=== PATIENT | female | born 1955 | race Caucasian/White ===

== ENCOUNTER 2020-05-09 13:31 | Outpatient (REF) | payer OTHER, SELFPAY ==
--- NOTE | 2020-05-09 13:37 | MM_ITS ---
EXAMINATION: MM SCREENING DIGITAL BREAST TOMOSYNTHESIS, BILATERAL CLINICAL INFORMATION: Screening. Asymptomatic. The lifetime risk of breast cancer based on the Tyrer-Cuzick Model is 3.8%. COMPARISON: Mammography: February 16, 2019 and studies dating back to June 24, 2012 TECHNIQUE: Digital breast tomosynthesis is performed in both the craniocaudal and mediolateral oblique views along with computer-aided detection (CAD). Synthesized 2D images are generated from the tomosynthesis. FINDINGS: There are scattered areas of fibroglandular density (ACR BI-RADS breast composition Category b). There are no significant masses, abnormal calcifications, or other abnormalities. MM/MM tomosynthesis screening BI IMPRESSION: There are no significant changes from prior study. ASSESSMENT: BI-RADS 1: Negative RECOMMENDATION: Routine annual mammography screening. This patient's information was entered into a reminder system with a target due date for their next mammogram.
== END 2020-05-09 13:32 | disposition home or self-care (01) ==
LOC: HO.MAMMO 13:31
PROVIDERS: PCP Pediatrics; Visit Provider Pediatrics
DX: Z12.31 Encounter for screening mammogram for malignant neoplasm of breast (principal)
CPT/HCPCS: 77063; 77067

== ENCOUNTER → 2020-10-16 10:19 | Outpatient (BNVA) | payer OTHER, SELFPAY | PROVIDERS: PCP Pediatrics; Visit Provider Internal Medicine Gastroenterology | CPT/HCPCS: Q3014 ==

== ENCOUNTER 2020-10-31 09:24 | Outpatient (REF) | payer OTHER, SELFPAY ==
--- NOTE | ~2020-10-31 | US_ITS ---
EXAMINATION: US ABDOMEN COMPLETE CLINICAL INFORMATION: Ultrasound abdomen complete 09/15/2019. COMPARISON: Previous abdominal ultrasound September 2019 TECHNIQUE: Real-time imaging of the abdominal viscera. FINDINGS: PANCREAS: The pancreas is not well visualized ABDOMINAL AORTA: The proximal, mid, and distal segments are normal in caliber. INFERIOR VENA CAVA: Visualized portions are normal. LIVER: The liver is normal in size. The liver contour is normal. Echotexture is increased. No focal hepatic lesion. There is no intrahepatic biliary duct dilatation seen. GALLBLADDER: Normal. The gallbladder is physiologically distended without evidence of stones, sludge, polyps, wall thickening or pericholecystic fluid. COMMON BILE DUCT: Normal in caliber measuring 0.6 cm in diameter. RIGHT KIDNEY: There is a small 2 mm echogenic density with twinkle artifact in the upper pole suggestive of a stone. No hydronephrosis or focal parenchymal lesions. The kidney measures 11.8 cm in maximum dimension. LEFT KIDNEY: Normal. No hydronephrosis. No renal calculi or focal parenchymal lesions. The kidney measures 11.0 cm in maximum dimension. SPLEEN: Normal. The spleen measures 10.4 cm in maximum dimension. FREE FLUID: None. US/US abdomen complete IMPRESSION: Echogenic liver probably representing fatty infiltration. Normal-appearing gallbladder. The pancreas is not well visualized. Small right upper pole renal stone.
== END 2020-10-31 09:25 | disposition home or self-care (01) ==
LOC: HO.US 09:24
PROVIDERS: Visit Provider Internal Medicine Gastroenterology
DX: R10.13 Epigastric pain (principal)
CPT/HCPCS: 76700

== ENCOUNTER 2020-12-06 09:41 | Emergency (ER) | payer OTHER, SELFPAY ==
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
[2020-12-06 10:06] VITALS: BP 147/82; PULSE 94; RESP 16; TEMP 36.9; O2SAT 98
[2020-12-06 10:24] VITALS: BP 148/82; PULSE 91; RESP 20; TEMP 36.9; O2SAT 97; BMI 33.2
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
== END 2020-12-06 11:48 | disposition home or self-care (01) ==
PROVIDERS: Emergency Provider Emergency Medicine; PCP Pediatrics
DX: S20.02XA Contusion of left breast, initial encounter (principal); S20.212A Contusion of left front wall of thorax, initial encounter; S29.011A Strain of muscle and tendon of front wall of thorax, initial encounter; V43.62XA Car passenger injured in collision with other type car in traffic accident, initial encounter; Y93.89 Activity, other specified; Y92.411 Interstate highway as the place of occurrence of the external cause; Y99.8 Other external cause status
CPT/HCPCS: 71101; 99283

== ENCOUNTER → 2021-01-28 12:41 | Outpatient (BNVA) | payer OTHER, SELFPAY | PROVIDERS: PCP Pediatrics; Visit Provider Internal Medicine Gastroenterology | DX: Z13.89 Encounter for screening for other disorder (principal) | CPT/HCPCS: Q3014 ==

== ENCOUNTER 2021-04-23 08:57 | Outpatient (REF) | payer OTHER, SELFPAY ==
[2021-04-23 09:10] LABS: MANUAL DIFF FLAG NO
[2021-04-23 09:40] LABS: Basophils Absolute Auto 0.1 X10*3/uL (0.0-0.2); Basophils Percent Auto 0.8 % (0-2); Eosinophils Absolute Auto 0.3 X10*3/uL (0.0-0.4); Eosinophils Percent Auto 4.8 % (0-4); Hematocrit 45.1 % (37-47); Hemoglobin 14.5 g/dl (12.0-16.0); Imm Gran Abs Auto 0.01 X10*3/uL (0.00-0.03); Imm Gran Pct Auto 0.2 % (0.0-0.4); Lymphocytes Absolute Auto 2.8 X10*3/uL (1.2-4.9); Lymphocytes Percent Auto 47.3 % (20-40); Mean Corpuscular HGB Conc 32.2 g/dl (31.0-35.0); Mean Corpuscular Volume 90.2 fL (80-98); Mean Platelet Volume 9.9 fL (9.4-12.3); Monocytes Absolute Auto 0.5 X10*3/uL (0.1-1.2); Monocytes Percent Auto 8.2 % (2-11); Neutrophils Absolute Auto 2.3 X10*3/uL (2.0-8.3); Neutrophils Percent Auto 38.7 % (45-73); Platelet Count 238 X10*3/uL (160-400); Red Cell Distribution Width 13.5 % (11.0-16.0)
[2021-04-23 09:54] LABS: Estimated Average Glucose 114 mg/dL; Hemoglobin A1c % 5.6 %
[2021-04-23 10:16] LABS: Anion Gap 14 (12-20); Blood Urea Nitrogen 11 mg/dL (9-16); Calcium 9.9 mg/dL (8.4-10.2); Carbon Dioxide 29 mmol/L (22-29); Chloride 105 mmol/L (96-108); Cholesterol 211 mg/dL; Estimated Glomerular Filt Rate > 60; Glucose Random 109 mg/dL (60-115); HDL Cholesterol 39 mg/dL; LDL Cholesterol Calculated 142 mg/dl; Potassium 4.9 mmol/L (3.3-5.1); Sodium 143 mmol/L (135-145); Triglycerides 153 mg/dL
[2021-04-23 10:21] LABS: TSH reflex Free T4 1.93 uIU/mL (0.32-4.0); Vitamin D 25-OH Total 25.6 ng/mL (>30)
[2021-04-23 10:30] LABS: Appearance Urine HAZY; Color Urine STRAW; Glucose Urine UA NEG (NEG); Leukocyte Esterase Urine NEG (NEG); Nitrite Urine NEG (NEG); Specific Gravity - Urine 1.025 (1.005-1.025); Urine Blood NEG (NEG); Urine Ketones NEG (NEG); Urine Protein NEG (NEG-TRACE)
[2021-04-23 11:05] LABS: Creatinine Urine 95.96 mg/dL
== END 2021-04-23 08:58 | disposition home or self-care (01) ==
LOC: HO.LAB 08:57
PROVIDERS: PCP Pediatrics; Visit Provider Pediatrics
DX: E78.00 Pure hypercholesterolemia, unspecified (principal); I10 Essential (primary) hypertension
CPT/HCPCS: 36415; 80048; 80061; 81003; 82043; 82306; 82550; 83036; 84443; 85025

== ENCOUNTER 2021-05-24 08:43 | Outpatient (REF) | payer OTHER, SELFPAY ==
[2021-05-24 09:09] LABS: MANUAL DIFF FLAG NO
[2021-05-24 09:31] LABS: Basophils Absolute Auto 0.1 X10*3/uL (0.0-0.2); Basophils Percent Auto 0.9 % (0-2); Eosinophils Absolute Auto 0.2 X10*3/uL (0.0-0.4); Eosinophils Percent Auto 4.1 % (0-4); Hematocrit 42.8 % (37.0-47.0); Lymphocytes Absolute Auto 2.5 X10*3/uL (1.2-4.9); Lymphocytes Percent Auto 42.7 % (20-40); Mean Corpuscular HGB Conc 32.7 g/dl (31.0-35.0); Mean Corpuscular Hemoglobin 29.5 pg (27.0-33.0); Mean Corpuscular Volume 90.3 fL (80.0-98.0); Mean Platelet Volume 9.5 fL (9.4-12.3); Monocytes Absolute Auto 0.5 X10*3/uL (0.1-1.2); Monocytes Percent Auto 9.2 % (2-11); Neutrophils Absolute Auto 2.5 x10*3/uL (2.0-8.3); Neutrophils Percent Auto 43.1 % (45-73); Platelet Count 239 X10*3/uL (160-400); Red Blood Count 4.74 X10*6/uL (4.20-5.50); Red Cell Distribution Width 13.3 % (11.0-16.0); White Blood Count 5.9 X10*3/uL (4.8-10.8)
[2021-05-24 09:32] LABS: Appearance Urine CLEAR; Color Urine YELLOW; Glucose Urine UA NEG (NEG); Leukocyte Esterase Urine NEG (NEG); Nitrite Urine NEG (NEG); Urine Blood NEG (NEG); Urine Ketones NEG (NEG); Urine Protein NEG (NEG-TRACE)
[2021-05-24 10:02] LABS: Alanine Aminotransferase 20 U/L (0-31); Alkaline Phosphatase 82 U/L (39-117); Anion Gap 13 (12-20); Aspartate Amino Transferase 20 U/L (5-31); Bilirubin Total 0.3 mg/dL (0.0-1.0); Blood Urea Nitrogen 11 mg/dL (9-16); C Reactive Protein 1.66 mg/dL (< or = 0.50); Calcium 9.6 mg/dL (8.4-10.2); Carbon Dioxide 27 mmol/L (22-29); Chloride 107 mmol/L (96-108); Estimated Glomerular Filt Rate > 60; Glucose Random 97 mg/dL (60-115); Iron 68 mcg/dL (30-160); Percent Iron Saturation 20 % (15-50); Potassium 4.5 mmol/L (3.3-5.1); Sodium 142 mmol/L (135-145); Total Iron Binding Capacity 339 mcg/dL (228-428); Total Protein 7.5 g/dL (6.5-8.0); Unsaturated Iron Binding 271 ug/dL
[2021-05-24 10:18] LABS: Erythrocyte Sedimentation Rate 21 MM/HR (0-20)
[2021-05-24 10:24] LABS: Ferritin 45 ng/mL (10-250); TSH reflex Free T4 1.06 uIU/mL (0.32-4.0)
[2021-05-27 12:15] LABS: IgA 365 mg/dL (70-320); IgG 1477 mg/dL (600-1540); IgM 68 mg/dL (50-300)
[2021-05-28 00:11] LABS: Immunoglobulin G Subclass 1 789 mg/dL (382-929); Immunoglobulin G Subclass 2 452 mg/dL (241-700); Immunoglobulin G Subclass 3 132 mg/dL (22-178); Immunoglobulin G Subclass 4 20.8 mg/dL (4-86); Immunoglobulin G Total 1502 mg/dL (600-1540)
[2021-05-28 05:51] LABS: Zinc 76 mcg/dL (60-130)
[2021-05-28 22:26] LABS: Histamine Plasma <1.5 ng/mL (< OR = 1.8)
[2021-05-29 07:57] LABS: Transglutaminase Ab IgG <1.0 U/mL; Transglutaminase IgA <1.0 U/mL
== END 2021-05-24 08:44 | disposition home or self-care (01) ==
LOC: HO.LAB 08:43
PROVIDERS: PCP Pediatrics; Visit Provider Internal Medicine Gastroenterology
DX: R10.13 Epigastric pain (principal); R10.33 Periumbilical pain; G89.29 Other chronic pain; R30.0 Dysuria; K75.81 Nonalcoholic steatohepatitis (NASH)
CPT/HCPCS: 36415; 80053; 81003; 82550; 82728; 82784; 83088; 83516; 83520; 83540; 84443; 84630; 85025; 85652; 86140

== ENCOUNTER 2021-05-27 10:35 | Outpatient (REF) | payer OTHER, SELFPAY ==
[2021-05-31 21:31] LABS: Calprotectin, Fecal 5 mcg/g
[2021-06-03 21:51] LABS: Pancreatic Elastase-1 >500 mcg/g
== END 2021-05-27 10:36 | disposition home or self-care (01) ==
LOC: HO.LNP 10:35
PROVIDERS: Visit Provider Internal Medicine Gastroenterology
DX: R10.13 Epigastric pain (principal)
CPT/HCPCS: 82656; 83993

== ENCOUNTER 2021-06-01 10:56 | Emergency (ER) | payer OTHER, SELFPAY ==
[2021-06-01 10:58] VITALS: BP 170/102; PULSE 100; RESP 16; TEMP 36.7; O2SAT 98; BMI 33.2
--- NOTE | 2021-06-01 11:09 | ED.BACK ---
HPI - Back Pain/Injury General Chief Complaint: Back Pain/Injury Stated Complaint: low back pain Time Seen by Provider: 06/01/21 11:07 Source: patient Mode of arrival: ambulatory Limitations: no limitations History of Present Illness MD elicited complaint: back pain Pertinent past history: prior back pain Onset (ago): day(s) (2) Timing: constant Severity: moderate Similar Symptoms Previously: No Quality: sharp Location: right lower back and left lower back Radiation: none Exacerbating factors: movement Relieving factors: immobilization Associated symptoms: denies other symptoms Work related injury: No Related Data Home Medications Medication Instructions Recorded Confirmed alendronate 70 mg tablet 70 mg PO QWEEK 10/16/20 atorvastatin 40 mg tablet 40 mg PO BEDTIME 10/16/20 cholecalciferol (vitamin D3) 50 50 mcg PO Q12H 10/16/20 mcg (2,000 unit) capsule fluticasone propionate 50 1 spray INTRANASAL DAILY 10/16/20 mcg/actuation nasal spray,suspension hydrochlorothiazide 12.5 mg tablet 12.5 mg PO DAILY 10/16/20 lansoprazole 30 mg capsule,delayed 30 mg PO DAILY 10/16/20 release multivitamin 1 tab PO DAILY 10/16/20 Previous Rx's Medication Instructions Recorded cyclobenzaprine 10 mg tablet 10 mg PO Q8H #10 tab 12/06/20 lidocaine HCl 4 % topical cream 1 appl TOPICAL BID PRN #120 g 12/06/20 (Aspercreme (lidocaine HCl)) naproxen 500 mg tablet 500 mg PO BID PRN #10 tab 12/06/20 cyclobenzaprine 10 mg tablet 10 mg PO TID PRN #10 tab 06/01/21 ketorolac 10 mg tablet 10 mg PO QID 5 Days #20 tab 06/01/21 Allergies Allergy/AdvReac Type Severity Reaction Status Date / Time No Known Allergies Allergy Mild NONE Verified 01/28/21 12:42 Review of Systems Review of Systems: Constitutional : No Weight loss, No Fever, No Chills, No Night Sweats,No Fatigue, No Malaise ENT/Mouth : No Hearing loss, No Ear Pain, No Nasal Congestion, NoSinus Pain, No Hoarseness, No sore throat, No Rhinorrhea, NoSwallowing Difficulty Eyes: No Eye Pain, No Swelling, No Redness, No Foreign Body, NoDischarge, No Vision Changes Cardiovascular : No Chest Pain, No SOB, No Dyspnea on Exertion, NoOrthopnea, No Edema, No Palpitations Respiratory : No Cough, No Sputum, No Wheezing, No Smoke Exposure, No Dyspnea Gastrointestinal : No Nausea, No Vomiting, No Diarrhea, NoConstipation, No abdominal Pain, No Hematochezia, No Melena no bowel incontinence Genitourinary : no irregular bleeding, No Dysuria, No UrinaryFrequency, No Hematuria, No Urinary Incontinence, No Urgency, No FlankPain, No Urinary Flow Changes, No Hesitancy Musculoskeletal : back pain No joint pain, No Myalgias, No Joint Swelling Skin : No Skin Lesions, No rash Neuro : No Weakness, No Numbness, No Paresthesias, No Loss ofConsciousness, No Dizziness, No Headache Psych : mild anxiety, tremors in hands, , No Depression, No SI/HI/AH/VH, No Social Issues, Endocrine : No Polyuria, No Polydipsia, No Temperature Intolerance PMFSH Past Medical History Surgical History H/O colonoscopy History of esophagogastroduodenoscopy (EGD) History of surgery on arm Social History Social History Household Members: Spouse Alcohol intake: current Alcohol intake frequency: does not drink Advance Directives: No Advance Directives Information Provided: No Physical Exam Vital Signs: Vital Signs: Last Vital Signs Temp 98.0 F 06/01/21 10:58 Pulse 100 06/01/21 10:58 Resp 18 06/01/21 12:12 BP 170/102 H 06/01/21 10:58 Pulse Ox 98 06/01/21 10:58 Body Mass Index 33.2 Const: General: cooperative, no acute distress, well developed, alert and awake Nutritional Appearance: well nourished Orientation/consciousness: patient oriented x3 Limitations: no limitations Eyes: Conjunctivae: conjunctivae normal Pupils: Equal, round and reactive pupils present EOM: EOMs intact bilaterally Neck: Neck: Yes full ROM, Yes no lymphadenopathy and Yes supple Resp: Effort & Inspection: normal respiratory effort and able to speak in complete sentences Auscultation: clear to auscultation bilaterally, no crackles, no rales, no rhonchi and no wheezes Cardio: Rate: regular rate Rhythm: regular rhythm Heart sounds: S1 normal heart sound present and S2 normal heart sound present : General: Yes no CVA tenderness Back/Spine/Pelvis: Back: no CVA tenderness Cervical Spine: normal cervical lordosis, cervical ROM normal and No cervical spasm Thoracic/Lumbar Spine: straight leg raise negative bilaterally, thoraco-lumbar spasm on the right, No thoracic spinal tenderness and No lumbar spinal tenderness Pelvis: no pain with anterior-posterior compression Skin: General skin exam: no rashes or lesions noted Neuro: General: patient oriented x3, tone normal and moves all extremities Cranial nerves: Yes Equal, round and reactive pupils present Extrem: General: Yes normal to inspection and Yes full ROM Psych: Appearance: grossly normal Affect: normal affect Attitude: cooperative Thought process: Normal thought process present Course Course Course Narrative: 65-year-old female with right lower back muscle tenderness which got much better with ketorolac and Flexeril, patient sent home with the same, given return precautions. No red flag symptoms, no leg numbness, weakness, fevers, history of cancer, saddle paresthesias, incontinence of bowel or bladder, or history of IV drug use. Discharge Plan Discharge Clinical Impression: Strain of lumbar region Qualifiers: Encounter type: initial encounter Qualified Code(s): S39.012A - Strain of muscle, fascia and tendon of lower back, initial encounter Patient Disposition: Home, Self-Care Instructions: Acute Low Back Pain (ED) Additional Instructions: As we discussed, I do not think this is a kidney stone. I think this is a muscle spasm of your back. However, if you have severe worsening back pain, you must return to the emergency room. I also want you to return to the emergency room if you have weakness in your legs, if you are incontinent of bowel or bladder, if you have numbness or tingling in your groin, or for any other new or concerning symptoms. As we discussed, do not take any ibuprofen containing products when you are taking the ketorolac, and do not drive with the muscle relaxant call to cyclobenzaprine. [place] comentamos, no creo que se trate de un c?lculo renal. Creo que es un espasmo muscular de la espalda. Sin embargo, si tiene un dolor de espalda yaritza que empeora, debe regresar a la dennis de emergencias. Tambi?n quiero que regrese a la dennis de emergencias si tiene debilidad en las piernas, si tiene incontinencia intestinal o de vejiga, si tiene entumecimiento u hormigueo en la shabnam, o por cualquier otro s?ntoma nuevo o preocupante. [place] ya comentamos, no tome jamie?n producto que contenga ibuprofeno cuando est? tomando ketorolaco y no conduzca con el llamado relajante muscular a la ciclobenzaprina. Prescriptions: New ketorolac 10 mg tablet 10 mg PO QID 5 Days Qty: 20 RF: 0 cyclobenzaprine 10 mg tablet 10 mg PO TID PRN (Reason: muscle spasm) Qty: 10 RF: 0 No Action cyclobenzaprine 10 mg tablet 10 mg PO Q8H Qty: 10 RF: 0 naproxen 500 mg tablet 500 mg PO BID PRN (Reason: pain) Qty: 10 RF: 0 lidocaine HCl [Aspercreme (lidocaine HCl)] 4 % cream 1 appl topical BID PRN (Reason: pain) Qty: 120 RF: 0 lansoprazole 30 mg capsule,delayed release(DR/EC) 30 mg PO DAILY RF: 0 fluticasone propionate 50 mcg/actuation spray,suspension 1 spray intranasal DAILY RF: 0 multivitamin Tablet 1 tab PO DAILY RF: 0 alendronate 70 mg tablet 70 mg PO QWEEK RF: 0 hydrochlorothiazide 12.5 mg tablet 12.5 mg PO DAILY RF: 0 atorvastatin 40 mg tablet 40 mg PO BEDTIME RF: 0 cholecalciferol (vitamin D3) 50 mcg (2,000 unit) capsule 50 mcg PO Q12H RF: 0 Discharge Date/Time: 06/01/21 12:26 Print Language: Tunisian
[2021-06-01] MEDS: Cyclobenzaprine HCl 10 MG TABLET PO (11:31)
[2021-06-01] MEDS: Ketorolac Tromethamine 15 MG/ML VIAL 30 MG IM (11:31)
[2021-06-01 12:12] VITALS: RESP 18
== END 2021-06-01 12:26 | disposition home or self-care (01) ==
PROVIDERS: Emergency Provider Emergency Medicine; PCP Pediatrics
DX: S39.012A Strain of muscle, fascia and tendon of lower back, initial encounter (principal); X58.XXXA Exposure to other specified factors, initial encounter; Y93.9 Activity, unspecified; Y92.9 Unspecified place or not applicable; Y99.9 Unspecified external cause status
CPT/HCPCS: 96372; 99283; 99284; J1885

== ENCOUNTER 2021-06-05 11:59 | Outpatient (REF) | payer OTHER, SELFPAY ==
--- NOTE | ~2021-06-05 | XR_ITS ---
EXAMINATION: XR LUMBOSACRAL SPINE CLINICAL INFORMATION: Low back pain COMPARISON: Lumbar spine x-rays 11/07/2014 TECHNIQUE: Three views of the lumbosacral spine. FINDINGS: Mild dextroscoliosis of the lumbar spine centered at L3. Alignment is otherwise within normal limits. Lumbar vertebral body heights are maintained. Disc space heights demonstrate mild narrowing diffusely. Small osteophytes are present at several levels. Similar sclerotic focus of the right sacrum, suspected bone island. XR/XR lumbar spine 2-3V IMPRESSION: Mild diffuse degenerative changes of the lumbar spine.
== END 2021-06-05 12:00 | disposition home or self-care (01) ==
LOC: HO.XRAY 11:59
PROVIDERS: Absent Provider Pediatrics; PCP Pediatrics; Visit Provider Family Medicine
DX: M54.50 Low back pain, unspecified (principal)
CPT/HCPCS: 72100

== ENCOUNTER 2021-06-11 12:40 | Outpatient (REF) | payer OTHER, SELFPAY ==
--- NOTE | ~2021-06-11 | MM_ITS ---
EXAMINATION: MM SCREENING DIGITAL BREAST TOMOSYNTHESIS, BILATERAL CLINICAL INFORMATION: Screening. Asymptomatic. The lifetime risk of breast cancer based on the Tyrer-Cuzick Model is 2.9%. COMPARISON: Mammography: May 09, 2020 and studies dating back to June 24, 2012 TECHNIQUE: Digital breast tomosynthesis is performed in both the craniocaudal and mediolateral oblique views along with computer-aided detection (CAD). Synthesized 2D images are generated from the tomosynthesis. FINDINGS: The breasts are almost entirely fatty (ACR BI-RADS breast composition Category a). There are no significant masses, abnormal calcifications, or other abnormalities. MM/MM tomosynthesis screening BI IMPRESSION: There are no significant changes from prior study. ASSESSMENT: BI-RADS 1: Negative RECOMMENDATION: Routine annual mammography screening. This patient's information was entered into a reminder system with a target due date for their next mammogram.
== END 2021-06-11 12:41 | disposition home or self-care (01) ==
LOC: HO.MAMMO 12:40
PROVIDERS: Visit Provider Pediatrics
DX: Z12.31 Encounter for screening mammogram for malignant neoplasm of breast (principal)
CPT/HCPCS: 77063; 77067

== ENCOUNTER 2021-07-02 10:52 | Outpatient (REF) | payer OTHER, SELFPAY ==
--- NOTE | ~2021-07-02 | FL_ITS ---
EXAMINATION: XR FLUOROSCOPY UPPER GI WITH AIR CLINICAL INFORMATION: Epigastric abdominal pain COMPARISON: December 22, 2014 and September 16, 2011 TECHNIQUE: Air-contrast upper GI examination FINDINGS: There is normal elevation of soft palate while saying candy. There is normal apposition of the vocal cords while saying E. Patient swallowed thin and thick barium and half-inch diameter barium tablet without difficulty. No nasopharyngeal reflux or tracheal aspiration. No cricopharyngeal hypertrophy or Zenker's diverticulum. There is esophageal hypomotility. No hiatal hernia identified. There is some mild gastroesophageal reflux within the distal third of the esophagus which clears slowly. No persistent strictures identified. There is some mild mucosal irregularity about the distal esophagus which may be related to esophagitis. The stomach demonstrates normal distensibility without abnormal mass or ulceration. There was no delay in gastric emptying. The duodenal bulb and sweep appeared unremarkable. FLUOROSCOPY TIME: 1.5 minutes DOSE AREA PRODUCT: 14.707 Gy-cm2 (aquino-centimeter squared) FL/FL upper GI w air IMPRESSION: Esophageal hypomotility with gastroesophageal reflux within the distal third of the esophagus identified. Mild mucosal irregularity of the distal esophagus which may be related to esophagitis.
== END 2021-07-02 10:53 | disposition home or self-care (01) ==
LOC: HO.XRAY 10:52
PROVIDERS: Visit Provider Internal Medicine Gastroenterology
DX: R10.13 Epigastric pain (principal)
CPT/HCPCS: 74246

== ENCOUNTER → 2021-10-14 14:55 | Outpatient (BNVA) | payer OTHER, SELFPAY | PROVIDERS: PCP Pediatrics; Visit Provider Nurse Practitioner Family | DX: M62.830 Muscle spasm of back (principal); M47.816 Spondylosis without myelopathy or radiculopathy, lumbar region; M53.3 Sacrococcygeal disorders, not elsewhere classified | CPT/HCPCS: 99202 ==

== ENCOUNTER 2021-12-23 15:49 | Outpatient (REF) | payer OTHER, SELFPAY ==
--- NOTE | ~2021-12-23 | XR_ITS ---
EXAMINATION: XR FOOT, LEFT CLINICAL INFORMATION: Right foot pain. COMPARISON: None TECHNIQUE: AP, lateral, and oblique views of the left foot. FINDINGS: The bones and soft tissues are normal. No fracture. Alignment is anatomic. Joint spaces are maintained. There is a very small plantar calcaneal spur. XR/XR foot LT min 3V IMPRESSION: Very small degenerative plantar calcaneal spur without other significant abnormality.
--- NOTE | ~2021-12-23 | XR_ITS ---
EXAMINATION: XR FOOT, RIGHT CLINICAL INFORMATION: Right foot pain. COMPARISON: None TECHNIQUE: AP, lateral, and oblique views of the right foot. FINDINGS: The bones and soft tissues are normal. No fracture. Alignment is anatomic. Joint spaces are maintained. Small retrocalcaneal spur. XR/XR foot RT min 3V IMPRESSION: Small retrocalcaneal spur without other significant abnormality.
== END 2021-12-23 15:50 | disposition home or self-care (01) ==
LOC: HO.XRAY 15:49
PROVIDERS: PCP Pediatrics; Visit Provider Nurse Practitioner Family
DX: M79.671 Pain in right foot (principal); M79.672 Pain in left foot; M47.816 Spondylosis without myelopathy or radiculopathy, lumbar region; M53.3 Sacrococcygeal disorders, not elsewhere classified; M62.830 Muscle spasm of back
CPT/HCPCS: 73630; 99212

== ENCOUNTER 2022-01-20 11:08 | Emergency (ER) | payer OTHER, SELFPAY ==
[2022-01-20 11:24] VITALS: BP 152/75; PULSE 70; RESP 18; TEMP 36.7; O2SAT 97; BMI 31.2
[2022-01-20 11:45] LABS: MANUAL DIFF FLAG NO
[2022-01-20 11:48] LABS: Basophils Percent Auto 0.8 % (0-2); Eosinophils Absolute Auto 0.2 X10*3/uL (0.0-0.4); Eosinophils Percent Auto 3.3 % (0-4); Hematocrit 41.8 % (37.0-47.0); Hemoglobin 13.7 g/dl (12.0-16.0); Imm Gran Abs Auto 0.01 X10*3/uL (0.00-0.03); Imm Gran Pct Auto 0.2 % (0.0-0.4); Lymphocytes Absolute Auto 2.3 X10*3/uL (1.2-4.9); Lymphocytes Percent Auto 45.5 % (20-40); Mean Corpuscular HGB Conc 32.8 g/dl (31.0-35.0); Mean Corpuscular Volume 88.4 fL (80.0-98.0); Mean Platelet Volume 9.5 fL (9.4-12.3); Monocytes Absolute Auto 0.5 X10*3/uL (0.1-1.2); Monocytes Percent Auto 8.8 % (2-11); Neutrophils Absolute Auto 2.1 x10*3/uL (2.0-8.3); Neutrophils Percent Auto 41.4 % (45-73); Platelet Count 216 X10*3/uL (160-400); Red Blood Count 4.73 X10*6/uL (4.20-5.50); Red Cell Distribution Width 13.6 % (11.0-16.0); White Blood Count 5.1 X10*3/uL (4.8-10.8)
[2022-01-20 12:07] LABS: COVID-19 Test Negative (Negative)
[2022-01-20 12:11] LABS: Alanine Aminotransferase 21 U/L (0-31); Albumin Level 4.1 g/dL (3.5-5.0); Alkaline Phosphatase 72 U/L (39-117); Anion Gap 7 (12-20); Aspartate Amino Transferase 20 U/L (5-31); Bilirubin Total 0.2 mg/dL (0.0-1.0); Blood Urea Nitrogen 16 mg/dL (9-16); Calcium 8.9 mg/dL (8.4-10.2); Carbon Dioxide 29 mmol/L (22-29); Chloride 109 mmol/L (96-108); Creatinine Clr Calc Pharmacy 66.5; Estimated Glomerular Filt Rate > 60; Glucose Random 95 mg/dL (60-115); Potassium 4.4 mmol/L (3.3-5.1); Sodium 141 mmol/L (135-145); Total Protein 7.2 g/dL (6.5-8.0)
[2022-01-20 19:35] VITALS: BP 165/66; PULSE 73; RESP 16; TEMP 37.1; O2SAT 98
--- NOTE | 2022-01-20 20:01 | ED.ABDPAIN ---
HPI - Abdominal Pain General Chief Complaint: Abdominal Pain Stated Complaint: L flank pain Time Seen by Provider: 01/20/22 20:01 Source: patient Mode of arrival: ambulatory History of Present Illness HPI narrative: 66-year-old female with no significant past medical history presenting to the ED complaining of acute on chronic left-sided low back pain radiating down left lower extremity x3 days. Also reports headache x today. Admits to history of migraines, this headache is similar however causing eye fatigue. Denies back injury/trauma, heavy lifting, numbness, tingling, weakness, abdominal pain, hematuria, dysuria, urinary incontinence/retention, nausea/vomiting. Admits to taking anti-inflammatories with relief. Denies taking any pain medication today MD elicited complaint: abdominal pain Onset (ago): day(s) Related Data Home Medications Medication Instructions Recorded Confirmed alendronate 70 mg tablet 70 mg PO QWEEK 10/16/20 10/14/21 atorvastatin 40 mg tablet 40 mg PO BEDTIME 10/16/20 10/14/21 cholecalciferol (vitamin D3) 50 50 mcg PO Q12H 10/16/20 10/14/21 mcg (2,000 unit) capsule fluticasone propionate 50 1 spray intranasal DAILY 10/16/20 10/14/21 mcg/actuation nasal spray,suspension hydrochlorothiazide 12.5 mg tablet 12.5 mg PO DAILY 10/16/20 lansoprazole 30 mg capsule,delayed 30 mg PO DAILY 10/16/20 10/14/21 release multivitamin 1 tab PO DAILY 10/16/20 10/14/21 Previous Rx's Medication Instructions Recorded naproxen 500 mg tablet 500 mg PO BID PRN pain #10 tabs 12/06/20 lidocaine HCl 4 % topical cream 1 appl topical BID PRN pain #120 10/14/21 (Aspercreme (lidocaine HCl)) grams diclofenac sodium 1 % topical gel 4 g topical QID pain #100 grams 12/23/21 (Arthritis Pain (diclofenac)) gabapentin 300 mg capsule 300 mg PO BID pain 30 days #60 caps 12/23/21 tizanidine 4 mg tablet 4 mg PO Q8H PRN muscle spasticity 12/23/21 30 days #90 tabs acetaminophen 500 mg tablet 500 mg PO Q6H PRN fever or pain 01/20/22 (Tylenol Extra Strength) #14 tabs cyclobenzaprine 5 mg tablet 5 mg PO Q8H PRN pain (scale score 01/20/22 7-10) 5 days #14 tabs lidocaine 5 % topical patch 1 patch topical DAILY PRN pain #30 01/20/22 (Lidoderm) ea naproxen 500 mg tablet 500 mg PO BID PRN pain 10 days #20 01/20/22 tabs Allergies Allergy/AdvReac Type Severity Reaction Status Date / Time No Known Allergies Allergy Mild NONE Verified 12/23/21 15:21 Review of Systems Review of Systems Constitutional: No Fever, No Chills, No Fatigue, No Malaise ENT/Mouth: No Ear Pain, No sore throat, No Rhinorrhea, No Swallowing Difficulty Eyes: No Eye Pain, No Swelling, No Redness, No Vision Changes Cardiovascular: No Chest Pain, No SOB, No Edema, No Palpitations Respiratory: No Cough, No Sputum, No Dyspnea Gastrointestinal: No Nausea, No Vomiting, No Diarrhea, No Constipation, No Abdominal pain Genitourinary: No Dysuria, No Urinary Frequency, No Hematuria, No Urinary Incontinence/retention, No Urgency, No Flank Pain, No Urinary Flow Changes Musculoskeletal: + joint pain, No Myalgias, No Joint Swelling Skin: No Skin Lesions, No rash Neuro: No Weakness, No Dizziness, + Headache Yes all other systems are reviewed and are negative Constitutional: Reports as per HPI Denies Abnormal speech present [facility] Past Medical History Attestation statement: The following information was validated with the patient. Surgical History H/O colonoscopy History of esophagogastroduodenoscopy (EGD) History of surgery on arm Social History Social History Household Members: Spouse Alcohol intake: current Alcohol intake frequency: does not drink Advance Directives: No Advance Directives Information Provided: No Physical Exam ED Vital Signs: Vital Signs - 24 hr 01/20/22 11:24 01/20/22 19:35 Temperature 98.0 F 98.7 F Pulse Rate 70 73 Respiratory Rate 18 16 Blood Pressure 152/75 H 165/66 H Pulse Oximetry 97 98 Oxygen Delivery Method Room Air Room Air BMI result Body Mass Index 31.2 Const General: cooperative, healthy appearing and no acute distress Orientation/consciousness: patient oriented x3 Limitations: no limitations HENMT Head: Yes normal to inspection and Yes atraumatic Ears: hearing grossly normal bilaterally General nose exam: Normal external nose present Face and sinus: Yes normal facial exam Eyes General: appearance normal, both eyes and all related structures Pupils: Equal, round and reactive pupils present EOM: EOMs intact bilaterally Neck Other: No midline cervical spinous tenderness Neck: Yes normal visual inspection and Yes no meningeal signs Resp Effort & Inspection: normal respiratory effort and no respiratory distress Cardio Rate: regular rate Heart sounds: S1 normal heart sound present and S2 normal heart sound present GI Inspection: Yes normal to inspection Palpation (GI): Soft to palpation, nontender, no guarding and not rigid General: Yes no CVA tenderness Back/Spine/Pelvis Other: No midline thoracic/lumbar spinous tenderness/step-off or deformity. + left-sided lower lumbar/buttock MSK tenderness Back: no CVA tenderness Skin Rashes: no rashes Wounds: no wounds Neuro Other: Strength intact throughout. No saddle anesthesia. Sensation intact to light touch. Neurovascular intact distally General: patient oriented x3, gait normal, tone normal, moves all extremities and no meningeal signs Cranial nerves: Yes CN's II-XII intact bilaterally, Yes Equal, round and reactive pupils present and Yes Bilaterally intact EOM present Cognition (Neuro): normal cognition Speech: No Abnormal speech present Gait exam (Neuro): Normal gait present Motor exam (neuro): 5/5 motor strength present throughout Extrem General: Yes normal to inspection Course Course Course Narrative: -labs unremarkable MDM - Abdominal Pain MDM Narrative Medical decision making narrative: 66-year-old female with no significant past medical history presenting to the ED complaining of acute on chronic left-sided low back pain radiating down left lower extremity x3 days. Also reports headache x today. On exam vital signs stable, NAD, nontoxic appearing, physical exam as above, no midline spinous tenderness through or red flag symptoms. No focal neuro deficits. Concern for MSK back pain/strain/muscle spasming vs sciatica. Low concern for pyelonephritis/renal stone Or intra-abdominal pathology Headache likely migraine, low suspicion for meningitis/encephalitis, CVT or SAH Plan: Labs ordered in triage. IM Toradol, PCP follow-up Medical Records Attestation: I reviewed the patient's medical records. Lab Data Attestation: I reviewed the patient's lab results. Result diagrams: 01/20/22 11:38 01/20/22 11:38 Labs: Lab Results 01/20/22 01/20/22 01/20/22 Range/Units 11:38 11:38 11:38 WBC 5.1 (4.8-10.8) X10*3/uL RBC 4.73 (4.20-5.50) X10*6/uL Hgb 13.7 (12.0-16.0) g/dl Hct 41.8 (37.0-47.0) % MCV 88.4 (80.0-98.0) fL MCH 29.0 (27.0-33.0) pg MCHC 32.8 (31.0-35.0) g/dl RDW 13.6 (11.0-16.0) % Plt Count 216 (160-400) X10*3/uL MPV 9.5 (9.4-12.3) fL Immature Gran % (Auto) 0.2 (0.0-0.4) % Neut % (Auto) 41.4 L (45-73) % Lymph % (Auto) 45.5 H (20-40) % Kendall % (Auto) 8.8 (2-11) % Eos % (Auto) 3.3 (0-4) % Baso % (Auto) 0.8 (0-2) % Lymph # (Auto) 2.3 (1.2-4.9) X10*3/uL Kendall # (Auto) 0.5 (0.1-1.2) X10*3/uL Eos # (Auto) 0.2 (0.0-0.4) X10*3/uL Baso # (Auto) 0.0 (0.0-0.2) X10*3/uL Abs Immat Gran (auto) 0.01 (0.00-0.03) X10*3/uL Absolute Neuts (auto) 2.1 (2.0-8.3) x10*3/uL Absolute Nucleated RBC 0.000 (0.0-0.012) X10*3/uL Nucleated RBC % (auto) 0.0 (0.0-0.2) /100WBC Sodium 141 (135-145) mmol/L Potassium 4.4 (3.3-5.1) mmol/L Chloride 109 H (96-108) mmol/L Carbon Dioxide 29 (22-29) mmol/L Anion Gap 7 L (12-20) BUN 16 (9-16) mg/dL Creatinine 0.74 (0.5-1.4) mg/dL Estim Creat Clear Calc 66.5 Estimated GFR > 60 Random Glucose 95 (60-115) mg/dL Calcium 8.9 D (8.4-10.2) mg/dL Total Bilirubin 0.2 (0.0-1.0) mg/dL AST 20 (5-31) U/L ALT 21 (0-31) U/L Alkaline Phosphatase 72 (39-117) U/L Total Protein 7.2 (6.5-8.0) g/dL Albumin 4.1 (3.5-5.0) g/dL COVID-19 (JOEY) Negative (Negative) COVID-19 Clin Com See Note Discharge Plan Discharge Clinical Impression: Low back pain, Headache Patient Disposition: Home, Self-Care Instructions: Acute Headache (ED), Back Pain (ED) Additional Instructions: Your pain is likely musculoskeletal Flexeril is a muscle relaxer, take at night as it makes you drowsy, do not drive, drink alcohol, or operate machinery while taking it Naproxen as an anti-inflammatory / pain medication, take with food Lidoderm patches are numbing patches, apply to painful area In addition take Tylenol at home If her headache persists or worsens, changes, becomes unbearable/constant or you have weakness return to the emergency department If symptoms persist or worsen, pain becomes unbearable, you developed urinary retention or incontinence, or weakness return to the ED Es probable que turner dolor sea musculoesquel?elisabet Flexeril es un relajante muscular, t?risa por la noche ya que te adormece, no conduzcas, bebas alcohol ni operes maquinaria mientras lo chirag. Naproxeno luther medicamento antiinflamatorio/analg?sico, t?knapp con alimentos Los parches de Lidoderm son parches anest?sicos, se aplican en el ?wang dolorida Adem?s reina Tylenol en casa Si turner dolor de nazario persiste o empeora, cambia, se vuelve insoportable/chelsi o tiene debilidad, regrese al departamento de emergencias Si los s?ntomas persisten o empeoran, el dolor se vuelve insoportable, desarroll? retenci?n urinaria o incontinencia, o debilidad, regrese al servicio de urgencias. Prescriptions: New acetaminophen [Tylenol Extra Strength] 500 mg tablet 500 mg PO Q6H PRN (Reason: fever or pain) Qty: 14 0RF lidocaine [Lidoderm] 5 % adhesive patch,medicated 1 patch topical DAILY MDD remove after 12 hours PRN (Reason: pain) Qty: 30 0RF Rx Instructions: leave on most painful area for up to 12 hrs naproxen 500 mg tablet 500 mg PO BID PRN (Reason: pain) 10 Days Qty: 20 0RF cyclobenzaprine 5 mg tablet 5 mg PO Q8H PRN (Reason: pain (scale score 7-10)) 5 Days Qty: 14 0RF No Action naproxen 500 mg tablet 500 mg PO BID PRN (Reason: pain) Qty: 10 0RF lansoprazole 30 mg capsule,delayed release(DR/EC) 30 mg PO DAILY fluticasone propionate 50 mcg/actuation spray,suspension 1 spray intranasal DAILY multivitamin Tablet 1 tab PO DAILY alendronate 70 mg tablet 70 mg PO QWEEK hydrochlorothiazide 12.5 mg tablet 12.5 mg PO DAILY atorvastatin 40 mg tablet 40 mg PO BEDTIME cholecalciferol (vitamin D3) 50 mcg (2,000 unit) capsule 50 mcg PO Q12H lidocaine HCl [Aspercreme (lidocaine HCl)] 4 % cream 1 appl topical BID PRN (Reason: pain) Qty: 120 0RF gabapentin 300 mg capsule 300 mg PO BID 30 Days Qty: 60 0RF diclofenac sodium [Arthritis Pain (diclofenac)] 1 % gel 4 g topical QID Qty: 100 0RF Rx Instructions: apply to single foot; for foot includes sole/toes/top of foot tizanidine 4 mg tablet 4 mg PO Q8H PRN (Reason: muscle spasticity) 30 Days Qty: 90 0RF Referrals: Carla Hart MD [Primary Care Provider] - 3 days Print Language: Hungarian
[2022-01-20] MEDS: Ketorolac Tromethamine 30 MG/ML VIAL IM (20:20)
== END 2022-01-20 20:27 | disposition home or self-care (01) ==
PROVIDERS: Emergency Provider Internal Medicine; PCP Pediatrics
DX: R10.32 Left lower quadrant pain (principal); M54.50 Low back pain, unspecified; R51.9 Headache, unspecified; Z20.822 Contact with and (suspected) exposure to COVID-19; Z79.899 Other long term (current) drug therapy
CPT/HCPCS: 80053; 85025; 87635; 96372; 99283; 99284; J1885

== ENCOUNTER → 2022-01-24 10:09 | Outpatient (BNVA) | payer OTHER, SELFPAY | PROVIDERS: PCP Pediatrics; Visit Provider Internal Medicine Gastroenterology | DX: K21.9 Gastro-esophageal reflux disease without esophagitis (principal); R10.13 Epigastric pain | CPT/HCPCS: 99212 ==

== ENCOUNTER → 2022-02-06 13:00 | Outpatient (BNVA) | payer OTHER, SELFPAY | PROVIDERS: PCP Pediatrics; Visit Provider Nurse Practitioner Family | DX: M53.3 Sacrococcygeal disorders, not elsewhere classified (principal); M47.816 Spondylosis without myelopathy or radiculopathy, lumbar region; M62.830 Muscle spasm of back; M54.16 Radiculopathy, lumbar region; M77.31 Calcaneal spur, right foot; M77.32 Calcaneal spur, left foot | CPT/HCPCS: 99212 ==

== ENCOUNTER 2022-06-04 08:15 | Day surgery (SDC) | payer OTHER, SELFPAY ==
[2022-05-27 09:56] VITALS: BMI 32.0
--- NOTE | 2022-06-03 10:23 | P.CONAN_ITS ---
Documented by User: Yulia Crouch NP 06/03/22 10:25 HPI - Anesthesia Eval Consult details Narrative: 66yo F for Colonoscopy PMFSH Active Problems Active Problems: All Active Problems (Updated 05/27/22 @ 09:56 by Suzanne Don, REMA) Epigastric abdominal pain (Acute) Lumbar spondylosis (Acute) Muscle spasm of back (Acute) Sacroiliac joint dysfunction (Acute) Bilateral foot pain (Acute) Lumbar radiculopathy (Acute) Calcaneal spur of both feet (Acute) Past Medical History Medical History Elevated cholesterol GERD (gastroesophageal reflux disease) History of COVID-19 Lumbar radiculopathy Lumbar spondylosis Sacroiliac joint dysfunction Surgical History Surgical History H/O colonoscopy History of esophagogastroduodenoscopy (EGD) History of surgery on arm Social History Social History Household Members: Spouse Alcohol intake: current Alcohol intake frequency: does not drink Patient Tobacco Use Status: Never used Tobacco Are you DNR?: No Advance Directives: No Advance Directives Information Provided: Yes Recently lost weight without trying: No Nutrition Risks: No Nutritional Risk Meds Allergies Allergy/AdvReac Type Severity Reaction Status Date / Time No Known Allergies Allergy Verified 05/27/22 09:55 Home Medications Medication Instructions Recorded Confirmed Last Taken Type alendronate 70 mg tablet 70 mg PO QWEEK 10/16/20 10/14/21 Unknown History atorvastatin 40 mg tablet 40 mg PO BEDTIME 10/16/20 10/14/21 Unknown History cholecalciferol (vitamin D3) 50 50 mcg PO Q12H 10/16/20 10/14/21 Unknown History mcg (2,000 unit) capsule fluticasone propionate 50 1 spray intranasal DAILY 10/16/20 10/14/21 Unknown History mcg/actuation nasal spray,suspension hydrochlorothiazide 12.5 mg tablet 12.5 mg PO DAILY 10/16/20 Unknown History multivitamin 1 tab PO DAILY 10/16/20 10/14/21 Unknown History Exam Exam Date and Time: June 03, 2022 1024 Height,Weight and Vital Signs: Height 5 ft Weight 74.389 kg Pertinent Lab Results Pertinent Lab Results: Laboratory Tests 01/20/22 01/20/22 11:38 11:38 WBC 5.1 Hgb 13.7 Hct 41.8 Plt Count 216 Sodium 141 Potassium 4.4 Chloride 109 H Carbon Dioxide 29 BUN 16 Creatinine 0.74 Assessment and Plan Assessment Anesthesia Assessment: Chart Reviewed Documented by User: Petra Millard MD 06/04/22 09:43 [facility] Past Medical History Medical History Elevated cholesterol GERD (gastroesophageal reflux disease) History of COVID-19 Lumbar radiculopathy Lumbar spondylosis Sacroiliac joint dysfunction Family History Family history of problems with anesthesia: No Surgical History Surgical History H/O colonoscopy History of esophagogastroduodenoscopy (EGD) History of surgery on arm History of Problems with Anesthesia: No Social History Social History Household Members: Spouse Alcohol intake: current Alcohol intake frequency: does not drink Patient Tobacco Use Status: Never used Tobacco Are you DNR?: No Advance Directives: No Advance Directives Information Provided: Yes Recently lost weight without trying: No Nutrition Risks: No Nutritional Risk Meds Allergies Allergy/AdvReac Type Severity Reaction Status Date / Time No Known Allergies Allergy Verified 05/27/22 09:55 Home Medications Medication Instructions Recorded Confirmed Last Taken Type alendronate 70 mg tablet 70 mg PO QWEEK 10/16/20 10/14/21 Unknown History atorvastatin 40 mg tablet 40 mg PO BEDTIME 10/16/20 10/14/21 Unknown History cholecalciferol (vitamin D3) 50 50 mcg PO Q12H 10/16/20 10/14/21 Unknown History mcg (2,000 unit) capsule fluticasone propionate 50 1 spray intranasal DAILY 10/16/20 10/14/21 Unknown History mcg/actuation nasal spray,suspension hydrochlorothiazide 12.5 mg tablet 12.5 mg PO DAILY 10/16/20 Unknown History multivitamin 1 tab PO DAILY 10/16/20 10/14/21 Unknown History Exam Height,Weight and Vital Signs: Height 5 ft Weight 74.389 kg Vital Signs Temp Pulse Resp BP Pulse Ox O2 Del Method 06/04/22 08:17 97.8 F 99 18 155/94 H 97 Room Air Airway Mallampati Class: II TM Dist: >3cm Neck ROM: Full Denture: Upper Partial: Lower Loose/Missing/Broken Teeth: No (No broken or loose teeth bottom) Heart: RRR Lungs: CTAB Assessment and Plan Assessment Anesthesia Assessment: Anesthesia Plan Discussed Final Anesthetic Review Family History of Problems with Anesthesia: No History of Problems with Anesthesia: No NPO: Yes ASA Class: II Final Preanesthetic Review: No Changes in Pt Med Stat, Meds/Allgs Chart Reviewed, Consent Obtained/Reviewed and Anes Risks/Benef Reviewed Patient Risk: Low Procedure Risk: Low Assessment/Block/Sedation in SS: Assess/Block/Sedation-SS Anesthetic Plan Anesthetic Plan: MAC: Disposition: Standard PACU
[2022-06-04 08:17] VITALS: BP 155/94; PULSE 99; RESP 18; TEMP 36.6; O2SAT 97
[2022-06-04] MEDS: Lactated Ringers 1,000 ML 100 ML IVCONT (08:38)
--- NOTE | 2022-06-04 09:06 | MHC.SHP ---
Pre-Procedural Eval Section A Date of Service: 06/04/22 Section B Chief Complaint: screening Relevant Family History (Specify if Yes): No Relevant Social History: None Present Medications: see Short Stay Collaborative assessment Medical History: Significant History (Elevated cholesterol GERD (gastroesophageal reflux disease) History of COVID-19 Lumbar radiculopathy Lumbar spondylosis Sacroiliac joint dysfunction) History of Previous Operations: Relevant previous surgery/procedure and date(s) (H/O colonoscopy History of esophagogastroduodenoscopy (EGD) History of surgery on arm) Allergies: Allergies Allergy/AdvReac Type Severity Reaction Status Date / Time No Known Allergies Allergy Verified 05/27/22 09:55 Review of Systems Sugical H&P ROS: Negative: Constitution, Cardiovascular, Respiratory, Neurological, Psychiatric, Hem-Onc, Allergic/Immunologic, Gastrointestinal, Genitourinary, Musculoskeletal, Integumentary, Endocrine and Eyes/Ears/Nose/Throat Exam Surgical H&P Exam: Normal: HEENT, Normal: Heart, Normal: Lungs, Normal: Extremities, Normal: Abdomen, Normal: Skin and Normal: Neurological Plan Diagnosis/Plan: Unchanged I have reviewed the history and physical and performed a pertinent physical examination on my patient. No changes have occurred unless specified.
--- NOTE | 2022-06-04 09:07 | W.PM.OPN ---
Operative Note Operative Note Date of Service: 06/04/22 Narrative: Operative Information Procedure Description: Colonoscopy Indication: screening Anesthesia: MAC COLONOSCOPY Instrument: Olympus variable stiffness pediatric scope 190L Colonoscopy Monitoring: Vital signs and clinical assessment, continuous EKG monitoring, Pulse oximetry, Carbon Dioxide monitoring and blood pressure monitoring were done throughout the procedure. Colon withdrawal time was 8 minutes. Procedure: The patient was placed in the left lateral decubitis position and pre-procedure medications were administered. After a digital rectal examination of the ano-rectum, the video colonoscope was inserted into the rectum and advanced through the colon to the cecum/TI. The colonoscope was slowly withdrawn in a retrograde panoramic fashion and the colon mucosa was carefully examined including a retroflexed view of the rectum. Findings and interventions are described below. Procedure Difficulty: easy Findings: Terminal Ileum-normal Cecum:normal Ascending Colon: 5-7 mm sessile polyp removed with cold forceps Transverse Colon -normal Descending Colon:normal Sigmoid Colon: mild diverticulosis Rectum: Retroflexion with small internal hemorrhoids, grade I Anorectum - normal Colon preparation: [employer] Bowel Preparation Scale Right colon; 2 Transverse colon: 2 Left colon; 2 (0 = Unprepared colon segment with mucosa not seen due to solid stool that cannot be cleared. 1 = Portion of mucosa of the colon segment seen, but other areas of the colon segment not well seen due to staining, residual stool and/or opaque liquid. 2 = Minor amount of residual staining, small fragments of stool and/or opaque liquid, but mucosa of colon segment seen well. 3 = Entire mucosa of colon segment seen well with no residual staining, small fragments of stool or opaque liquid) Impression and Post Procedure Diagnosis: polyp internal hemorrhoids diverticular disease Plan: High fiber diet leaflet Avoid straining at stool, epsom salts and sitz bath, anusol supps or cream Repeat Colonoscopy in 5 years if adenomatous polyp, 10 yrs if benign or earlier if clinically indicated Above findings were reviewed with the patient and relevant handouts were provided if indicated.
[2022-06-04 09:43] VITALS: BP 80/50; PULSE 80; RESP 14; TEMP 36.4; O2SAT 96
[2022-06-04 09:51] VITALS: BP 106/61; PULSE 97; RESP 14; O2SAT 98
[2022-06-04 09:58] VITALS: BP 119/82; PULSE 84; RESP 16; TEMP 36.3; O2SAT 99
== END 2022-06-04 11:38 | disposition home or self-care (01) ==
PROVIDERS: PCP Pediatrics; Visit Provider Internal Medicine Gastroenterology
PROC: 0DJD8ZZ Inspection of Lower Intestinal Tract, Via Natural or Artificial Opening Endoscopic (ICD-10-PCS; CPT 45378; principal; 2022-06-04 09:20)
DX: Z12.11 Encounter for screening for malignant neoplasm of colon (principal); K63.5 Polyp of colon; K57.30 Diverticulosis of large intestine without perforation or abscess without bleeding; K64.0 First degree hemorrhoids; K21.9 Gastro-esophageal reflux disease without esophagitis; E78.00 Pure hypercholesterolemia, unspecified; M54.16 Radiculopathy, lumbar region; M53.3 Sacrococcygeal disorders, not elsewhere classified; Z79.51 Long term (current) use of inhaled steroids; Z79.899 Other long term (current) drug therapy; Z86.16 Personal history of COVID-19
CPT/HCPCS: 45380; 88305

== ENCOUNTER 2022-08-07 10:18 | Outpatient (REF) | payer OTHER, SELFPAY ==
--- NOTE | ~2022-08-07 | MM_ITS ---
EXAMINATION: MM SCREENING DIGITAL BREAST TOMOSYNTHESIS, BILATERAL CLINICAL INFORMATION: Screening. Asymptomatic. The lifetime risk of breast cancer based on the Tyrer-Cuzick Model is 4%. COMPARISON: Mammography: June 11, 2021 and studies dating back to December 19, 2015 TECHNIQUE: Digital breast tomosynthesis is performed in both the craniocaudal and mediolateral oblique views along with computer-aided detection (CAD). Synthesized 2D images are generated from the tomosynthesis. FINDINGS: The breasts are almost entirely fatty (ACR BI-RADS breast composition Category a). There are no significant masses, abnormal calcifications, or other abnormalities. MM/MM tomosynthesis screening BI IMPRESSION: No significant changes from prior exam. ASSESSMENT: BI-RADS 1: Negative RECOMMENDATION: Routine annual mammography screening. This patient's information was entered into a reminder system with a target due date for their next mammogram.
== END 2022-08-07 10:19 | disposition home or self-care (01) ==
LOC: HO.MAMMO 10:18
PROVIDERS: Visit Provider Pediatrics
DX: Z12.31 Encounter for screening mammogram for malignant neoplasm of breast (principal)
CPT/HCPCS: 77063; 77067

== ENCOUNTER 2022-08-10 12:02 | Emergency (ER) | payer OTHER, SELFPAY ==
--- NOTE | ~2022-08-10 | XR_ITS ---
EXAMINATION: XR SHOULDER, LEFT CLINICAL INFORMATION: Left shoulder pain. COMPARISON: None TECHNIQUE: AP external rotation, Grashey, scapular Y, and axillary views of the left shoulder. FINDINGS: The bones and soft tissues are normal. No fracture. A femoral head bone anchor is noted in place without abnormality. Glenohumeral and acromioclavicular alignment is anatomic. No abnormal soft tissue calcifications. XR/XR shoulder LT min 2V IMPRESSION: 1. No acute left shoulder abnormality.
--- NOTE | 2022-08-10 12:25 | ECG_ITS ---
Test Reason : L SHOULDER PAIN Blood Pressure : / mmHG Vent. Rate : 077 BPM Atrial Rate : 077 BPM P-R Int : 130 ms QRS Dur : 088 ms QT Int : 384 ms P-R-T Axes : 069 032 038 degrees QTc Int : 434 ms Normal sinus rhythm Possible Left atrial enlargement Borderline ECG No previous ECGs available Referred By: Gabriella Baca Electronically Signed By:MERCEDEZ NEVILLE MD
--- NOTE | 2022-08-10 12:25 | ED.UPPEXIN ---
HPI - Extremity Injury (Upper) General Chief Complaint: Extremity Problem <NI Hudson Last Filed: 08/10/22 12:31> Stated Complaint: L shoulder pain <NI Hudson Last Filed: 08/10/22 12:31> Time Seen by Provider: 08/10/22 13:09 <NI Hudson Last Filed: 08/10/22 12:31> Source: patient <NI Lancaster Last Filed: 08/10/22 14:49> Mode of arrival: ambulatory <NI Lancaster Last Filed: 08/10/22 14:49> Limitations: no limitations <NI Lancaster Last Filed: 08/10/22 14:49> History of Present Illness HPI narrative: 67 yo female presenting to the ER for evaluation of non-traumatic left sided shoulder pain for the last 3 days. She reports waking up with the pain. She reports having surgery on both of her shoulders at [facility] in the past. She states the pain is in the back of her left shoulder, worse with ambulation. It radiates to the front and lateral portions of the shoulder with movement. She is able to abduct the arm completely but with discomfort. No chest pain or SOB. No numbness, weakness or tingling. No neck pain. She took a muscle relaxer with minimal relief. <NI Lancaster Last Filed: 08/10/22 14:49> MD complaint: injury to: left and shoulder <NI Lancaster Last Filed: 08/10/22 14:49> Onset (ago): day(s) (3) <NI Lancaster Last Filed: 08/10/22 14:49> Other injuries: none <NI Lancaster Last Filed: 08/10/22 14:49> Handedness: right <NI Lancaster Last Filed: 08/10/22 14:49> Place: home <NI Lancaster Last Filed: 08/10/22 14:49> Severity: moderate <NI Lancaster Last Filed: 08/10/22 14:49> Severity scale (1-10): 5 <NI Lancaster - Last Filed: 08/10/22 14:49> Relieving factors: immobilization <NI Lancaster - Last Filed: 08/10/22 14:49> Exacerbating factors: movement of extremity <NI Lancaster - Last Filed: 08/10/22 14:49> Associated symptoms: denies other symptoms <NI Lancaster - Last Filed: 08/10/22 14:49> Related Data Home Medications: Home Medications Medication Instructions Recorded Confirmed alendronate 70 mg tablet 70 mg PO QWEEK 10/16/20 10/14/21 atorvastatin 40 mg tablet 40 mg PO BEDTIME 10/16/20 10/14/21 cholecalciferol (vitamin D3) 50 50 mcg PO Q12H 10/16/20 10/14/21 mcg (2,000 unit) capsule fluticasone propionate 50 1 spray intranasal DAILY 10/16/20 10/14/21 mcg/actuation nasal spray,suspension hydrochlorothiazide 12.5 mg tablet 12.5 mg PO DAILY 10/16/20 multivitamin 1 tab PO DAILY 10/16/20 10/14/21 Previous Rx's Medication Instructions Recorded lidocaine HCl 4 % topical cream 1 appl topical BID PRN pain #120 10/14/21 (Aspercreme (lidocaine HCl)) grams diclofenac sodium 1 % topical gel 4 g topical QID pain #100 grams 12/23/21 (Arthritis Pain (diclofenac)) acetaminophen 500 mg tablet 500 mg PO Q6H PRN fever or pain 01/20/22 (Tylenol Extra Strength) #14 tabs lidocaine 5 % topical patch 1 patch topical DAILY PRN pain #30 01/20/22 (Lidoderm) ea dexlansoprazole 60 mg 60 mg PO DAILY #90 caps 01/24/22 capsule,biphase delayed release (Dexilant) cyclobenzaprine 5 mg tablet 5 mg PO Q8H PRN muscle spasm 30 02/06/22 days #30 tabs prednisone 20 mg tablet 40 mg PO DAILY pain 5 days #10 tabs 02/06/22 gabapentin 300 mg capsule 300 mg PO BID PRN for pain 30 days 02/24/22 #60 caps ketorolac 10 mg tablet 10 mg PO Q8H PRN pain #10 tabs 02/05/23 lidocaine 5 % topical patch 1 patch topical DAILY #15 ea 08/10/22 <NI Hudson - Last Filed: 08/10/22 12:31> Allergies/Adverse Reactions: Allergies Allergy/AdvReac Type Severity Reaction Status Date / Time No Known Allergies Allergy Verified 05/27/22 09:55 <NI Hudson - Last Filed: 08/10/22 12:31> Review of Systems Review of Systems: Yes all other systems are reviewed and are negative <NI Lancaster - Last Filed: 08/10/22 14:49> [facility] Past Medical History Medical History: Medical History Elevated cholesterol GERD (gastroesophageal reflux disease) History of COVID-19 Lumbar radiculopathy Lumbar spondylosis Sacroiliac joint dysfunction <NI Hudson - Last Filed: 08/10/22 12:31> Surgical History: Surgical History H/O colonoscopy History of esophagogastroduodenoscopy (EGD) History of surgery on arm <NI Hudson - Last Filed: 08/10/22 12:31> Social History Social History: Social History Household Members: Spouse Alcohol intake: current Alcohol intake frequency: does not drink Patient Tobacco Use Status: Never used Tobacco Advance Directives: No Advance Directives Information Provided: Yes <NI Hudson - Last Filed: 08/10/22 12:31> Physical Exam Vital Signs: Vital Signs: Last Vital Signs Temp 97.2 F 08/10/22 12:26 Pulse 76 08/10/22 12:26 Resp 16 08/10/22 12:26 BP 150/82 H 08/10/22 12:26 Pulse Ox 98 08/10/22 12:26 O2 Del Method 08/10/22 12:26 BMI result Body Mass Index 33.2 <NI Hudson - Last Filed: 08/10/22 12:31> Vital Signs: Last Vital Signs Temp 97.2 F 08/10/22 12:26 Pulse 76 08/10/22 12:26 Resp 16 08/10/22 12:26 BP 150/82 H 08/10/22 12:26 Pulse Ox 98 08/10/22 12:26 O2 Del Method 08/10/22 12:26 BMI result Body Mass Index 33.2 <NI Lancaster - Last Filed: 08/10/22 14:49> Appearance: Alert. Oriented X3. No acute distress. HEENT: normal inspection CVS: Normal heart rate and rhythm. Pulses normal. Respiratory: No respiratory distress. Skin: Skin warm and dry. Normal skin color. Normal skin turgor. No rashes. Extremities: normal inspection of the bilateral shoulders. left posterior shoulder with soft tissue tenderness, AC joint tenderness. no skin changes. no deformity. normal ROM with pain upon abduction at 180 degrees. +empty can test. 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 No motor deficit. No sensory deficit. <NI Lancaster - Last Filed: 08/10/22 14:49> Course Course Course Narrative: RME--67-year-old female past medical history of GERD, HLD, prior left shoulder surgery presenting to the ED complaining of left shoulder pain x3 days. Denies known injury, trauma, fall. Reports associated mild headache. Denies CP/SOB, numbness/tingling EKG, x-ray ordered in triage <NI Hudson - Last Filed: 08/10/22 12:31> Reevaluation(s) Reevaluation #1: XR normal. pain reproducible on exam. doubt cardiac etiology, most likely rotator cuff, msk pain. will start on nsaids and have her f/u with her orthopedic <NI Lancaster - Last Filed: 08/10/22 14:49> Medications Administered Discontinued Medications Generic Name Dose Route Start Last Admin Trade Name Freq PRN Reason Stop Dose Admin Ketorolac Tromethamine 30 mg 08/10/22 13:56 08/10/22 14:16 Ketorolac Tromethamine 30 Mg/Ml Vial IM 08/10/22 13:57 30 mg ONCE ONE Administration <NI Hudson - Last Filed: 08/10/22 12:31> Medications Administered Discontinued Medications Generic Name Dose Route Start Last Admin Trade Name Freq PRN Reason Stop Dose Admin Ketorolac Tromethamine 30 mg 08/10/22 13:56 08/10/22 14:16 Ketorolac Tromethamine 30 Mg/Ml Vial IM 08/10/22 13:57 30 mg ONCE ONE Administration <NI Lancaster Last Filed: 08/10/22 14:49> Medical Decision Making Differential Diagnosis Differential Diagnoses: The differential diagnosis associated with the presentation includes <NI Lancaster - Last Filed: 08/10/22 14:49> rotator cuff injury, tendonitis, shoulder strain vs sprain, ac joint separation, less likely cardiac etiology <NI Lancaster - Last Filed: 08/10/22 14:49> Independent Interpretation I performed an independent interpretation of an: Plain X-Ray <NI Lancaster Last Filed: 08/10/22 14:49> Interpretation: normal appearing left shoulder <NI Lancaster - Last Filed: 08/10/22 14:49> Radiology Impression Discussion of test interpretation with radiology: I have reviewed the radiologist's reading. <NI Lancaster Last Filed: 08/10/22 14:49> Radiologist Impression: XR/XR shoulder LT min 2V IMPRESSION: 1.? No acute left shoulder abnormality. <NI Lancaster Last Filed: 08/10/22 14:49> Prescription Management I considered prescription management with: Pain Medication <NI Lancaster - Last Filed: 08/10/22 14:49> NSAID <NI Lancaster Last Filed: 08/10/22 14:49> Critical Care Time Critical Care Time Critical Care Time: No <NI Lancaster Last Filed: 08/10/22 14:49> Discharge Plan Discharge Clinical Impression: Left shoulder pain <NI Hudson Last Filed: 08/10/22 12:31> Patient Disposition: Home, Self-Care <NI Hudson Last Filed: 08/10/22 12:31> Instructions: Shoulder Pain (ED) <NI Hudson Last Filed: 08/10/22 12:31> Additional Instructions: Your x-ray today was normal. Recommend taking the prescribed anti-inflammatory medication. Recommend following up with your orthopedic doctor for further evaluation of possible rotator cuff problem. If you develop new or worsening symptoms call 911 or come back to the ER for further evaluation. Tu radiograf?a de hoy fue normal. Recomendar marlen la medicaci?n antiinflamatoria prescrita. Recomiende hacer un seguimiento con turner m?dico ortop?dico para nikolas evaluaci?n adicional del posible problema del manguito rotador. Si desarrolla s?ntomas nuevos o que empeoran, llame al 911 o regrese a la dennis de emergencias para nikolas evaluaci?n adicional. <NI Hudson - Last Filed: 08/10/22 12:31> Prescriptions: New ketorolac 10 mg tablet 10 mg PO Q8H PRN (Reason: pain) Qty: 10 0RF lidocaine 5 % adhesive patch,medicated 1 patch topical DAILY Qty: 15 0RF Rx Instructions: leave on most painful area for up to 12 hrs No Action gabapentin 300 mg capsule 300 mg PO BID PRN (Reason: for pain) 30 Days Qty: 60 1RF acetaminophen [Tylenol Extra Strength] 500 mg tablet 500 mg PO Q6H PRN (Reason: fever or pain) Qty: 14 0RF lidocaine [Lidoderm] 5 % adhesive patch,medicated 1 patch topical DAILY MDD remove after 12 hours PRN (Reason: pain) Qty: 30 0RF Rx Instructions: leave on most painful area for up to 12 hrs fluticasone propionate 50 mcg/actuation spray,suspension 1 spray intranasal DAILY multivitamin Tablet 1 tab PO DAILY alendronate 70 mg tablet 70 mg PO QWEEK hydrochlorothiazide 12.5 mg tablet 12.5 mg PO DAILY atorvastatin 40 mg tablet 40 mg PO BEDTIME cholecalciferol (vitamin D3) 50 mcg (2,000 unit) capsule 50 mcg PO Q12H dexlansoprazole [Dexilant] 60 mg capsule,biphase delayed releas 60 mg PO DAILY Qty: 90 2RF prednisone 20 mg tablet 40 mg PO DAILY 5 Days Qty: 10 0RF cyclobenzaprine 5 mg tablet 5 mg PO Q8H PRN (Reason: muscle spasm) 30 Days Qty: 30 1RF lidocaine HCl [Aspercreme (lidocaine HCl)] 4 % cream 1 appl topical BID PRN (Reason: pain) Qty: 120 0RF diclofenac sodium [Arthritis Pain (diclofenac)] 1 % gel 4 g topical QID Qty: 100 0RF Rx Instructions: apply to single foot; for foot includes sole/toes/top of foot <NI Hudson - Last Filed: 08/10/22 12:31> Referrals: Carla Hart MD [Primary Care Provider] - (left shoulder pain) <NI Hudson - Last Filed: 08/10/22 12:31> Interventions: ED Discharge Assessment Last Done: 08/10/22 14:36 <NI Hudson - Last Filed: 08/10/22 12:31> Discharge Date/Time: 08/10/22 14:36 <NI Hudson - Last Filed: 08/10/22 12:31> Print Language: Romansh <NI Hudson - Last Filed: 08/10/22 12:31>
[2022-08-10 12:26] VITALS: BP 150/82; PULSE 76; RESP 16; TEMP 36.2; O2SAT 98; BMI 33.2
[2022-08-10] MEDS: Ketorolac Tromethamine 30 MG/ML VIAL IM (14:16)
== END 2022-08-10 14:36 | disposition home or self-care (01) ==
PROVIDERS: Emergency Provider Student in an Organized Health Care Education/Training Program; PCP Pediatrics
DX: M25.512 Pain in left shoulder (principal); R07.89 Other chest pain; M54.50 Low back pain, unspecified; Z79.899 Other long term (current) drug therapy
CPT/HCPCS: 73030; 93005; 96372; 99283; 99284; J1885

== ENCOUNTER → 2022-08-22 15:18 | Outpatient (BNVA) | payer OTHER, SELFPAY | PROVIDERS: PCP Pediatrics; Visit Provider Nurse Practitioner Family | DX: M47.816 Spondylosis without myelopathy or radiculopathy, lumbar region (principal); M25.512 Pain in left shoulder; M79.18 Myalgia, other site; R22.2 Localized swelling, mass and lump, trunk | CPT/HCPCS: 99212 ==

== ENCOUNTER → 2022-09-03 10:35 | Outpatient (BNVA) | payer OTHER, SELFPAY | PROVIDERS: PCP Pediatrics; Visit Provider Surgery | DX: R22.2 Localized swelling, mass and lump, trunk (principal) | CPT/HCPCS: 99202 ==

== ENCOUNTER → 2022-09-05 09:20 | Outpatient (BNVA) | payer OTHER, SELFPAY | PROVIDERS: PCP Pediatrics; Referring Provider Pediatrics; Visit Provider Internal Medicine Gastroenterology | DX: K21.9 Gastro-esophageal reflux disease without esophagitis (principal); R10.13 Epigastric pain | CPT/HCPCS: 99212 ==

== ENCOUNTER 2022-10-29 09:29 | Outpatient (REF) | payer OTHER, SELFPAY | END 2022-10-29 09:30 | disposition home or self-care (01) | LOC: HO.LNP 09:29 | PROVIDERS: PCP Pediatrics; Referring Provider Pediatrics; Visit Provider Surgery | DX: R22.2 Localized swelling, mass and lump, trunk (principal) | CPT/HCPCS: 11403; 88304; 99212 ==

== ENCOUNTER → 2022-11-10 12:11 | Outpatient (BNVA) | payer OTHER, SELFPAY | PROVIDERS: PCP Pediatrics; Visit Provider Surgery | DX: Z48.817 Encounter for surgical aftercare following surgery on the skin and subcutaneous tissue (principal) | CPT/HCPCS: 99211 ==

== ENCOUNTER 2022-12-25 12:32 | Outpatient (REF) | payer OTHER, SELFPAY ==
--- NOTE | ~2022-12-25 | MR_ITS ---
EXAMINATION: MRI SHOULDER WITHOUT CONTRAST, LEFT INDICATION: Left shoulder pain, decreased range of motion. COMPARISON: 08/10/2022 TECHNIQUE: Multiplanar MR imaging was obtained through the left shoulder without contrast on a 1.5 Yajaira magnet. FINDINGS: ROTATOR CUFF : Mild supraspinatus tendinosis is evident, characterized by tendon thickening and intermediate intrasubstance signal. No recurrent tears, status post repair. Soft tissue anchors are evident at the greater tuberosity anteriorly. There is mild subscapularis tendinosis. Infraspinatus and teres minor are normal. Grade 1 fatty replacement is evident at the myotendinous junction. No additional muscle atrophy. BICEPS: Normal. CORACOACROMIAL ARCH: The undersurface of the acromion is remodeled status post subacromial decompression. No subacromial spur. Status post distal clavicular resection. No significant subacromial subdeltoid bursal fluid. LABRUM/CAPSULE: Intact glenoid labrum. No tears. Normal glenohumeral joint capsule. GLENOHUMERAL JOINT/MARROW: No fracture or malalignment. Articular cartilage appears relatively well-preserved. No joint effusion. MR/MR shoulder LT wo con IMPRESSION: 1. Mild supraspinatus and subscapularis tendinosis. No recurrent rotator cuff tears. 2. Status post subacromial decompression and distal clavicular resection.
== END 2022-12-25 12:33 | disposition home or self-care (01) ==
LOC: HO.MRI 12:32
PROVIDERS: PCP Pediatrics; Visit Provider Pediatrics
DX: M25.512 Pain in left shoulder (principal)
CPT/HCPCS: 73221

== ENCOUNTER 2023-01-02 10:28 | Outpatient (REF) | payer OTHER, SELFPAY ==
--- NOTE | ~2023-01-02 | XR_ITS ---
EXAMINATION: XR KNEE, LEFT CLINICAL INFORMATION: Pain COMPARISON: None available. TECHNIQUE: 3 views frontal lateral and patella sunrise view of the left knee. FINDINGS: No fracture or joint effusion. Alignment is anatomic. Joint spaces are maintained. No abnormal soft tissue calcification. XR/XR knee LT 3V IMPRESSION: No significant osseous changes to explain patient's pain symptoms.
== END 2023-01-02 10:29 | disposition home or self-care (01) ==
LOC: HO.XRAY 10:28
PROVIDERS: Visit Provider Pediatrics
DX: M25.562 Pain in left knee (principal); G89.29 Other chronic pain
CPT/HCPCS: 73562

== ENCOUNTER 2023-03-23 14:18 | Outpatient (AMB) | payer OTHER, SELFPAY ==
--- NOTE | 2023-03-23 14:20 | A.OFFVIS_ITS ---
Intake Vital Signs 03/23/23 14:21 Height 5 ft Weight 178 lb 9.191 oz BMI 34.9 BP 135/64 Blood Pressure Location Lt brachial Position Sitting Pulse 83 Intake Visit Reasons: 4 Month Follow up Intake Note: Celeste presents in the office as a 4 month follow up. CC: She states that she is not having any concerns today. 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 ? ? RECAP- saw [facility] initially ? c/o epigastric pain, mostly at night for 1 month. ? Omeprazole and carafate- no better-she had taked many of these medications for years. ? She admitted that she forgets to take her medications ? She had an EGD-2016- Dr. Hansen--gastritis, h pylori neg ? She had undergone a screening colonoscopy, 10/2018- Dr. Hansen--TA removed ? Due to ongoing sx of epigastric pain and burning she had EGD as below ? she was advised to cont with lansoprazole and TCA due to sx at night i changed the timing of the PPI to see if helped her sx Labs: h PYLORI BREATH TEST-01/2020-NEG ? Other tests: US 09/2019 ? echogenic liver, no acute findings ? EGD 12/2019-- erosions and stomach ulcer noted---increased IEL duodenum, moderate, GEJ with chronic esophagitis, inflammed ? US: 10/2020--- Echogenic liver, normal-appearing gallbladder. Small right upper pole renal stone. UGI series: GERD, esophgeal hypomotility, possible esophagitis colonoscopy 06/04/22- diverticulosis, hyperplastic right sided polyp, hemorrhoids INTERIM: she feels pantoprazole is better but has worse sx at night no nausea or vomiting has burning epigastric discomfort she is taking PPI in the mornign no diarrhea or constipation siblings were sick with cancer doing much better now EXAM: GENERAL: The patient is well developed and nontoxic. VITAL SIGNS:see workflow HEENT: Nonicteric sclerae, PERRLA, EOMI. Oropharynx clear. Moist mucous memb ranes. Conjunctivae appear well perfused. No thyroid mass. CHEST: Chest wall is nontender. HEART: Regular rate and rhythm without murmurs. LUNGS: Clear to auscultation bilaterally. ABDOMEN: Soft, positive bowel sounds, nontender, no organomegaly.no flank tenderness SKIN: No rash, no excessive bruising, petechiae, or purpura. NEUROLOGIC: Cranial nerves II-XII intact without motor/sensory deficit. ? Assessments ? 1. Epigastric pain and GERD< , she might have stress related gastritis but this seems improved with medication - ? PLAN: 1/ can try changing lansoprazole to even ing dose and see if helps otherwise can add pepcid at bedtime [facility] Medical History Elevated cholesterol History of COVID-19 GERD (gastroesophageal reflux disease) Sacroiliac joint dysfunction Lumbar spondylosis Lumbar radiculopathy Surgical History History of esophagogastroduodenoscopy (EGD) H/O colonoscopy History of surgery on arm Social History Household Members: Spouse Alcohol intake: current Alcohol intake frequency: does not drink Patient Tobacco Use Status: Never used Tobacco Physical Exam Vital Signs: Last Vital Signs Pulse 83 03/23/23 14:21 BP 135/64 03/23/23 14:21 BMI result Body Mass Index 34.9 Assessment & Plan Assessment & Plan (1) Epigastric abdominal pain: Code(s): R10.13 - Epigastric pain Coding Level of Care Code Est Pt Level 3 (61414) Diagnoses Epigastric abdominal pain R10.13
[2023-03-23 14:21] VITALS: BP 135/64; PULSE 83; BMI 34.9
== END 2023-03-23 14:58 | disposition home or self-care (01) ==
PROVIDERS: PCP Pediatrics; Visit Provider Internal Medicine Gastroenterology
DX: R10.13 Epigastric pain (principal)
CPT/HCPCS: 99213

== ENCOUNTER → 2023-03-23 14:18 | Outpatient (BNVA) | payer OTHER, SELFPAY | PROVIDERS: PCP Pediatrics; Visit Provider Internal Medicine Gastroenterology | DX: R10.13 Epigastric pain (principal) | CPT/HCPCS: 99212 ==

== ENCOUNTER 2023-08-13 09:40 | Outpatient (REF) | payer OTHER, SELFPAY | END 2023-08-13 09:41 | disposition home or self-care (01) | LOC: HO.MAMMO 09:40 | PROVIDERS: Visit Provider Pediatrics | DX: Z12.31 Encounter for screening mammogram for malignant neoplasm of breast (principal) | CPT/HCPCS: 77063; 77067 ==

== ENCOUNTER → 2023-08-13 10:30 | Outpatient (BNV) | payer OTHER, SELFPAY | PROVIDERS: Visit Provider Radiology Diagnostic Radiology | DX: Z12.31 Encounter for screening mammogram for malignant neoplasm of breast (principal) | CPT/HCPCS: 77063; 77067 ==

== ENCOUNTER 2023-08-22 09:49 | Emergency (ER) | payer OTHER, SELFPAY ==
[2023-08-22 09:53] VITALS: BP 151/65; PULSE 92; RESP 18; TEMP 36.9; O2SAT 98; BMI 39.1
--- NOTE | 2023-08-22 10:02 | ED_ITS ---
HPI - Back Pain/Injury General Chief Complaint: Back Pain/Injury Stated Complaint: back pain Time Seen by Provider: 08/22/23 09:57 Source: patient and family Mode of arrival: wheelchair Limitations: no limitations History of Present Illness HPI Narrative: 68-year-old female with a history of HLD, GERD, chronic back pain presents to the ER with complaints of acute on chronic back pain since Thursday with no new injury or trauma. Patient reports that she had been taking Toradol but she ran out of this. She has been taking gabapentin and tizanidine with continued pain. There is no radiation of pain. No numbness in the groin. No numbness or tingling in the legs. No bowel or bladder incontinence. No fevers or chills. Patient arrives in wheelchair but is ambulatory Related Data Home Medications Medication Instructions Recorded Confirmed atorvastatin 40 mg tablet 40 mg PO BEDTIME 10/16/20 10/14/21 cholecalciferol (vitamin D3) 50 50 mcg PO Q12H 10/16/20 10/14/21 mcg (2,000 unit) capsule calcium carbonate 600 mg calcium 600 mg PO BID 03/23/23 (1,500 mg) tablet multivitamin with folic acid 400 tab PO 03/23/23 mcg tablet (Daily-Mitch (with folic acid)) Previous Rx's Medication Instructions Recorded lidocaine HCl 4 % topical cream 1 appl topical BID PRN pain #120 10/14/21 (Aspercreme (lidocaine HCl)) grams acetaminophen 500 mg tablet 500 mg PO Q6H PRN fever or pain 01/20/22 (Tylenol Extra Strength) #14 tabs cyclobenzaprine 5 mg tablet 5 mg PO Q8H PRN muscle spasm 30 02/06/22 days #30 tabs prednisone 20 mg tablet 40 mg (2 x 20 mg) PO DAILY pain 5 02/06/22 days #10 tabs gabapentin 300 mg capsule 300 mg PO BID PRN for pain 30 days 02/24/22 #60 caps ketorolac 10 mg tablet 10 mg PO Q8H PRN pain #10 tabs 08/10/22 lidocaine 5 % topical patch 1 patch topical DAILY #15 ea 08/10/22 diclofenac sodium 1 % topical gel 4 g topical QID pain #180 grams 08/22/22 (Arthritis Pain (diclofenac)) pantoprazole 40 mg tablet,delayed 40 mg PO DAILY #90 tabs 06/01/23 release ketorolac 10 mg tablet 10 mg PO Q8H PRN pain #15 tabs 08/22/23 lidocaine 5 % topical patch 1 patch topical DAILY #15 ea 08/22/23 (Lidoderm) Allergies Allergy/AdvReac Type Severity Reaction Status Date / Time No Known Allergies Allergy Verified 03/23/23 14:23 Review of Systems Review of Systems: Yes all other systems are reviewed and are negative Constitutional: Constitutional: Reports no additional constitutional complaints, Denies body ache(s), Denies chills, Denies fever(s), Denies headache(s) and Denies weakness Eyes: Eyes: Reports no additional eye complaints and Denies change in vision ENT: Reports system reviewed and no additional complaints, except as documented, Denies dizziness, Denies headache(s), Denies nasal congestion, Denies nasal discharge and Denies neck pain Cardiovascular: Cardiovascular: Reports no additional cardiovascular complaints, Denies chest pain, Denies leg edema and Denies dyspnea Respiratory: Respiratory: Reports no additional respiratory complaints, Denies cough and Denies dyspnea Gastrointestinal: Gastrointestinal: Reports no additional gastrointestinal complaints, Denies abdominal pain, Denies diarrhea, Denies nausea and Denies vomiting Genitourinary: Genitourinary: Reports no additional female genitourinary complaints and Denies urinary incontinence Musculoskeletal: Musculoskeletal: Reports no additional musculoskeletal complaints, Reports back pain, Denies arthralgias, Denies joint swelling, Denies neck pain, Denies numbness and Denies tingling Integumentary/Breasts: Skin/Breast: Reports system reviewed and no additional complaints, except as docu and Denies rash Neurologic: Reports system reviewed and no additional complaints, except as documented, Denies Abnormal speech present, Denies dizziness, Denies headache(s), Denies numbness, Denies tingling and Denies weakness PMFSH Past Medical History Attestation statement: The following information was validated with the patient. Source: old records reviewed and nursing notes reviewed Medical History Elevated cholesterol History of COVID-19 GERD (gastroesophageal reflux disease) Sacroiliac joint dysfunction Lumbar spondylosis Lumbar radiculopathy Surgical History History of esophagogastroduodenoscopy (EGD) H/O colonoscopy History of surgery on arm Social History Social History Household Members: Spouse Alcohol intake: current Alcohol intake frequency: does not drink Patient Tobacco Use Status: Never used Tobacco Smoked in Last 30 Days: No Use of substances other than those prescribed or required for medical reasons: No Advance Directives: Yes Advance Directives Information Provided: No Advance Directives on File: No Physical Exam Vital Signs: Vital Signs: Last Vital Signs Temp 98.5 F 08/22/23 09:53 Pulse 92 08/22/23 09:53 Resp 18 08/22/23 09:53 BP 151/65 H 08/22/23 09:53 Pulse Ox 98 08/22/23 09:53 O2 Del Method Room Air 08/22/23 09:53 BMI result Body Mass Index 39.1 Const: General: cooperative, healthy appearing, comfortable and no acute distress Orientation/consciousness: patient oriented x3 Limitations: no limitations HEENT: Head: Yes normal to inspection Ears: hearing grossly normal bilaterally General nose exam: Normal external nose present Face and sinus: Yes normal facial exam Mouth: Normal oral and palatal mucosa present Throat: Yes posterior oropharynx normal Eyes: General: appearance normal, both eyes and all related structures Pupils: Equal, round and reactive pupils present Neck: Neck: Yes normal visual inspection Chest: Chest palpation & inspection: normal inspection of the chest Resp: Effort & Inspection: normal respiratory effort Auscultation: clear to auscultation bilaterally Cardio: Rate: regular rate Rhythm: regular rhythm Peripheral pulses: Peripheral pulses 2+ throughout GI: Inspection: Yes normal to inspection Palpation (GI): Soft to palpation and nontender Auscultation: normal bowel sounds : General: Yes no CVA tenderness Back/Spine/Pelvis: Other: tenderness the left lumbar soft tissue with no midline tenderness, step-offs deformities. Normal straight leg raise Back: no CVA tenderness Thoracic/Lumbar Spine: thoracic and lumbar spine normal to inspection Skin: General skin exam: no rashes or lesions noted Neuro: General: patient oriented x3, moves all extremities, no focal motor deficits and normal sensation to monofilament Cranial nerves: Yes Equal, round and reactive pupils present Cognition (Neuro): normal cognition Speech: No Abnormal speech present Gait exam (Neuro): Normal gait present Motor exam (neuro): 5/5 motor strength present throughout Sensory Exam: Normal double simultaneous stimulation for sensation Deep tendon reflexes (DTR's): Right patellar reflex intensity grade: 2+ and Left patellar reflex intensity grade: 2+ Extrem: General: Yes normal to inspection Medications Administered Discontinued Medications Generic Name Dose Route Start Last Admin Trade Name Nabor PRN Reason Stop Dose Admin Ketorolac Tromethamine 30 mg 08/22/23 10:08 08/22/23 10:12 Ketorolac Tromethamine 30 Mg/Ml Vial IM 08/22/23 10:09 30 mg ONCE ONE Administration Medical Decision Making Medical Decision Making MDM Narrative: 68-year-old female with a history of chronic back pain presents to the ER with complaints of acute on chronic back pain since Thursday with no new injury or trauma. Patient reports that she had been taking Toradol but she ran out of this. She has been taking gabapentin and tizanidine with continued pain. There is no radiation of pain. No numbness in the groin. No numbness or tingling in the legs. No bowel or bladder incontinence. No fevers or chills. Patient arrives in wheelchair but is ambulatory on exam patient has tenderness the left lumbar soft tissue with no midline tenderness, step-offs deformities. She has a normal neurological exam no focal neurological deficits or red flag symptoms. Likely chronic back pain. Will receive Toradol in the ER. Patient reports this has been helpful for her in the past. Differential Diagnosis Differential Diagnoses: The differential diagnosis associated with the presentation includes Low concern for fracture with no reports of injury or trauma Low concern for cord compression, cauda equina, malignancy, epidural abscess with normal neuro exam with no focal deficits or red flag symptoms low concern for AAA with gradual onset of symptoms low suspicion for pyelonephritis, renal colic, ACS Admission/Observation Consideration of admission/observation: Escalation of care including admission/observation considered no neurological deficits or red flag symptoms to suggest need for emergent MRI and urgent neurosurgery consultation and or transfer to tertiary care center. Independent Historian Clinical information obtained from an independent historian. History obtained from or confirmed by: Other ( Daughter) Tests considered The following testing was considered but not selected: no neurological deficits or red flag symptoms to suggest need for emergent MRI Prescription Management I considered prescription management with: Pain Medication Discharge Plan Discharge Clinical Impression: Back pain Patient Disposition: Home, Self-Care Instructions: Chronic Back Pain (DC) Additional Instructions: continue your tizanidine and gabapentin Apply heat or ice to the affected area no heavy lifting or bending follow-up with primary care doctor for any continued symptoms return to the ER for any numbness in the groin, fever greater than 100.4, incontinence of urine or stool contin?e con turner tizanidina y gabapentina Aplicar calor o hielo en la tu afectada. sin levantar objetos pesados ??ni agacharse seguimiento con el m?dico de atenci?n primaria para detectar cualquier s?ntoma continuo regresar a la dennis de emergencias por cualquier entumecimiento en la shabnam, fiebre superior a 100.4, incontinencia de orina o heces Prescriptions: New ketorolac 10 mg tablet 10 mg PO Q8H PRN (Reason: pain) Qty: 15 0RF lidocaine [Lidoderm] 5 % adhesive patch,medicated 1 patch topical DAILY Qty: 15 0RF Rx Instructions: leave on most painful area for up to 12 hrs No Action gabapentin 300 mg capsule 300 mg PO BID PRN (Reason: for pain) 30 Days Qty: 60 1RF pantoprazole 40 mg tablet,delayed release (DR/EC) 40 mg PO DAILY Qty: 90 4RF ketorolac 10 mg tablet 10 mg PO Q8H PRN (Reason: pain) Qty: 10 0RF lidocaine 5 % adhesive patch,medicated 1 patch topical DAILY Qty: 15 0RF Rx Instructions: leave on most painful area for up to 12 hrs acetaminophen [Tylenol Extra Strength] 500 mg tablet 500 mg PO Q6H PRN (Reason: fever or pain) Qty: 14 0RF atorvastatin 40 mg tablet 40 mg PO BEDTIME cholecalciferol (vitamin D3) 50 mcg (2,000 unit) capsule 50 mcg PO Q12H prednisone 20 mg tablet 40 mg PO DAILY 5 Days Qty: 10 0RF cyclobenzaprine 5 mg tablet 5 mg PO Q8H PRN (Reason: muscle spasm) 30 Days Qty: 30 1RF lidocaine HCl [Aspercreme (lidocaine HCl)] 4 % cream 1 appl topical BID PRN (Reason: pain) Qty: 120 0RF diclofenac sodium [Arthritis Pain (diclofenac)] 1 % gel 4 g topical QID Qty: 180 3RF Rx Instructions: Apply 1-3 grams (pumps) to the affected area 3-4 times daily. calcium carbonate 600 mg calcium (1,500 mg) tablet 600 mg PO BID multivitamin with folic acid [Daily-Mitch (with folic acid)] 400 mcg tablet PO Referrals: Carla Hart MD [Primary Care Provider] - 1 week ( for continued symptoms) Interventions: ED Discharge Assessment Last Done: 08/22/23 10:32 Discharge Date/Time: 08/22/23 10:39 Print Language: Ukrainian
[2023-08-22] MEDS: Ketorolac Tromethamine 30 MG/ML VIAL IM (10:12)
== END 2023-08-22 10:39 | disposition home or self-care (01) ==
PROVIDERS: Emergency Provider Internal Medicine; PCP Pediatrics
DX: M54.50 Low back pain, unspecified (principal)
CPT/HCPCS: 96372; 99284; J1885

== ENCOUNTER 2023-08-27 11:12 | Outpatient (REF) | payer OTHER, SELFPAY ==
[2023-08-27 14:29] LABS: MANUAL DIFF FLAG NO
[2023-08-27 14:33] LABS: Basophils Percent Auto 0.6 % (0-2); Eosinophils Absolute Auto 0.2 X10*3/uL (0.0-0.4); Eosinophils Percent Auto 3.6 % (0-4); Hematocrit 42.5 % (37.0-47.0); Hemoglobin 13.9 g/dl (12.0-16.0); Imm Gran Abs Auto 0.02 X10*3/uL (0.00-0.03); Imm Gran Pct Auto 0.4 % (0.0-0.4); Lymphocytes Absolute Auto 2.2 X10*3/uL (1.2-4.9); Lymphocytes Percent Auto 41.5 % (20-40); Mean Corpuscular HGB Conc 32.7 g/dl (31.0-35.0); Mean Corpuscular Hemoglobin 29.6 pg (27.0-33.0); Mean Corpuscular Volume 90.6 fL (80.0-98.0); Mean Platelet Volume 10.2 fL (9.4-12.3); Monocytes Absolute Auto 0.5 X10*3/uL (0.1-1.2); Monocytes Percent Auto 8.6 % (2-11); Neutrophils Absolute Auto 2.4 x10*3/uL (2.0-8.3); Neutrophils Percent Auto 45.3 % (45-73); Platelet Count 242 X10*3/uL (160-400); Red Blood Count 4.69 X10*6/uL (4.20-5.50); Red Cell Distribution Width 13.5 % (11.0-16.0); White Blood Count 5.3 X10*3/uL (4.8-10.8)
[2023-08-27 14:57] LABS: Anion Gap 11 (12-20); Blood Urea Nitrogen 9 mg/dL (9-16); Calcium 9.5 mg/dL (8.4-10.2); Carbon Dioxide 29 mmol/L (22-29); Chloride 107 mmol/L (96-108); Cholesterol 212 mg/dL (<200); Estimated Glomerular Filt Rate > 60; Glucose Fasting 85 mg/dL (60-99); HDL Cholesterol 37 mg/dL (>40); LDL Cholesterol Calculated 141 mg/dL (<100); Potassium 3.8 mmol/L (3.3-5.1); Sodium 143 mmol/L (135-145); Triglycerides 172 mg/dL (<150)
[2023-08-27 15:04] LABS: TSH reflex Free T4 0.98 uIU/mL (0.32-4.0); Vitamin D 25-OH Total 43.5 ng/mL (>30)
[2023-08-27 15:13] LABS: Estimated Average Glucose 105 mg/dL; Hemoglobin A1c % 5.3 % (<6.0)
== END 2023-08-27 11:13 | disposition home or self-care (01) ==
LOC: HO.CHCLDS 11:12
PROVIDERS: Visit Provider Pediatrics
DX: M81.0 Age-related osteoporosis without current pathological fracture (principal); E55.9 Vitamin D deficiency, unspecified; M54.9 Dorsalgia, unspecified; M25.511 Pain in right shoulder; G89.29 Other chronic pain; Z83.3 Family history of diabetes mellitus
CPT/HCPCS: 36415; 80048; 80061; 82306; 83036; 84443; 85025

== ENCOUNTER 2024-03-24 10:35 | Outpatient (REF) | payer MEDICARE, MEDICAID, SELFPAY ==
--- NOTE | ~2024-03-24 | XR_ITS ---
EXAMINATION: XR KNEE, RIGHT CLINICAL INFORMATION: Right knee pain, swelling. COMPARISON: None available. TECHNIQUE: Four views of the right knee. FINDINGS: No fracture, dislocation, or suspicious bony abnormality . Normal alignment. There is mild medial compartment joint space narrowing, and mild patellofemoral joint space narrowing involving the lateral facet. Lateral compartment appears normal. On the sunrise view, there appears to be a probable osteochondral defect in the central femoral trochlea. This is likely degenerative. There is a small suprapatellar joint effusion. Soft tissues otherwise normal. XR/XR knee RT 3V IMPRESSION: 1. No fracture or dislocation. 2. Mild medial and lateral patellofemoral compartment osteoarthrosis. 3. Probable osteochondral defect in the central femoral trochlea on the sunrise view, degenerative. 4. Small suprapatellar joint effusions. Electronically signed by: Siddharth Stout MD 05/13/2024 06:54 PM [facility]
== END 2024-03-24 10:36 | disposition home or self-care (01) ==
LOC: HO.XRAY 10:35
PROVIDERS: PCP Pediatrics; Visit Provider Pediatrics
DX: M25.461 Effusion, right knee (principal); M25.561 Pain in right knee
CPT/HCPCS: 73562

== ENCOUNTER → 2024-03-24 10:42 | Outpatient (BNV) | payer MEDICARE, MEDICAID, SELFPAY | PROVIDERS: PCP Pediatrics; Visit Provider Radiology Diagnostic Radiology | DX: M25.561 Pain in right knee (principal); M25.461 Effusion, right knee | CPT/HCPCS: 73562 ==

== ENCOUNTER 2024-04-08 11:37 | Outpatient (AMB) | payer OTHER, MEDICAID, SELFPAY ==
[2024-04-08 11:41] VITALS: BP 140/70; PULSE 87; BMI 33.6
--- NOTE | 2024-04-08 11:41 | MHC.OFFVIS ---
Vital Signs 04/08/24 11:41 Height 5 ft Weight 171 lb 15.369 oz BMI 33.6 BP 140/70 H Blood Pressure Location Lt brachial Position Sitting Pulse 87 Intake Visit Reasons: Follow up /pt request Intake Note: Celeste presents in the office as a follow up that was requested per the patient. CC: She does not feel like pantoprazole is working and she wants to discuss being switched to another medication. 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 ? ? [place] [facility] [place] c/o epigastric pain, mostly at night for 1 month. ? Omeprazole and carafate- no better-she had taked many of these medications for years. ? She admitted that she forgets to take her medications ? She had an EGD-2016- Dr. Hansen--gastritis, h pylori neg ? She had undergone a screening colonoscopy, 10/2018- Dr. Hansen--TA removed ? Due to ongoing sx of epigastric pain and burning she had EGD as below ? she was advised to cont with lansoprazole and TCA due to sx at night i changed the timing of the PPI to see if helped her sx Labs: h PYLORI BREATH TEST-01/2020-NEG ? Other tests: US 09/2019 ? echogenic liver, no acute findings ? EGD 12/2019-- erosions and stomach ulcer noted---increased IEL duodenum, moderate, GEJ with chronic esophagitis, inflammed ? US: 10/2020--- Echogenic liver, normal-appearing gallbladder. Small right upper pole renal stone. UGI series: 2020 GERD, esophageal hypomotility, possible esophagitis colonoscopy 06/04/22- diverticulosis, hyperplastic right sided polyp, hemorrhoids INTERIM: she has epigastric pain not severe usu hurts at night --last meal at 6 pm usually takes pantoprazole in morning she does not want to repeat endoscopy EXAM: GENERAL: The patient is well developed and nontoxic. VITAL SIGNS:see workflow HEENT: Nonicteric sclerae, PERRLA, EOMI. Oropharynx clear. Moist mucous membranes. Conjunctivae appear well perfused. No thyroid mass. CHEST: Chest wall is nontender. HEART: Regular rate and rhythm without murmurs. LUNGS: Clear to auscultation bilaterally. ABDOMEN: Soft, positive bowel sounds, nontender, no organomegaly.no flank tenderness SKIN: No rash, no excessive bruising, petechiae, or purpura. NEUROLOGIC: Cranial nerves II-XII intact without motor/sensory deficit. ? Assessments ? 1. Epigastric pain --worse at night, same as before, taking PPI in morning ? PLAN: 1/ change PPI to evening before meal, GES if neg then CT A/P PFSH Medical History Elevated cholesterol History of COVID-19 GERD (gastroesophageal reflux disease) Sacroiliac joint dysfunction Lumbar spondylosis Lumbar radiculopathy Surgical History History of esophagogastroduodenoscopy (EGD) H/O colonoscopy History of surgery on arm Social History Household Members: Spouse Alcohol intake: current Alcohol intake frequency: does not drink Patient Tobacco Use Status: Never used Tobacco Physical Exam Vital Signs: Last Vital Signs Pulse 87 04/08/24 11:41 BP 140/70 H 04/08/24 11:41 BMI result Body Mass Index 33.6 Assessment & Plan Assessment & Plan (1) Epigastric abdominal pain: Code(s): R10.13 - Epigastric pain Category: Medical Plan: see above Coding Level of Care Code Est Pt Level 3 (44591) Diagnoses Epigastric abdominal pain R10.13
== END 2024-04-08 12:15 | disposition home or self-care (01) ==
PROVIDERS: PCP Pediatrics; Visit Provider Internal Medicine Gastroenterology
DX: R10.13 Epigastric pain (principal)
CPT/HCPCS: 99213

== ENCOUNTER → 2024-04-08 11:37 | Outpatient (BNVA) | payer OTHER, SELFPAY | PROVIDERS: PCP Pediatrics; Visit Provider Internal Medicine Gastroenterology | DX: R10.13 Epigastric pain (principal); Z51.81 Encounter for therapeutic drug level monitoring; Z79.899 Other long term (current) drug therapy | CPT/HCPCS: 99212 ==

== ENCOUNTER 2024-05-13 07:44 | Outpatient (REF) | payer OTHER, SELFPAY ==
[2024-05-13 09:25] LABS: Alanine Aminotransferase 25 U/L (0-31); Albumin Level 4.1 g/dL (3.5-5.0); Alkaline Phosphatase 81 U/L (39-117); Aspartate Amino Transferase 25 U/L (5-31); Bilirubin Direct 0.1 mg/dL (0.0-0.5); Bilirubin Total 0.3 mg/dL (0.0-1.0); Cholesterol 211 mg/dL (<200); HDL Cholesterol 38 mg/dL (>40); LDL Cholesterol Calculated 133 mg/dL (<100); Total Protein 7.5 g/dL (6.5-8.0); Triglycerides 202 mg/dL (<150)
== END 2024-05-13 07:45 | disposition home or self-care (01) ==
LOC: HO.LAB 07:44
PROVIDERS: PCP Pediatrics; Visit Provider Pediatrics
DX: E78.00 Pure hypercholesterolemia, unspecified (principal); M81.0 Age-related osteoporosis without current pathological fracture; M25.511 Pain in right shoulder
CPT/HCPCS: 36415; 80061; 80076; 82550

== ENCOUNTER 2024-07-19 14:20 | Outpatient (AMB) | payer OTHER, SELFPAY ==
[2024-07-19 14:21] VITALS: BMI 33.4
--- NOTE | 2024-07-19 14:21 | MHC.OFFVIS ---
Vital Signs 07/19/24 14:21 Height 5 ft Weight 171 lb BMI 33.4 Intake Visit Reasons: Right knee pain Intake Note: Celeste is a 69 year old female who presents today for evaluation of her right knee pain. She describes her pain as sharp in nature. Her pain has gotten worse over the last year in spite of continued non operative treatments. Most of the pain is along the medial and anterior aspects of her knee. She has done physical therapy exercises which aggravated her pain. She has also tried Tylenol and naproxen which gave her minimal relief. She has also tried [place] topical cream which gives her mild relief. She states that her right knee will give out several times per day. Know: no Residential Youth Counselor Required: Yes Residential Youth Counselor Language: Racing Secretary Services: Residential Youth Counselor Present Residential Youth Counselor Name: FAVIO Shea/PIERO Allergies No Known Allergies Allergy (Verified 07/19/24 14:21) Medication List - Last Reconciled 07/19/24 by Jeremiah Eldridge MD acetaminophen (Tylenol Extra Strength) 500 mg PO Q6H PRN atorvastatin 40 mg PO BEDTIME calcium carbonate 600 mg PO BID cholecalciferol (vitamin D3) 50 mcg PO Q12H cyclobenzaprine 5 mg PO Q8H PRN 30 days dexlansoprazole (Dexilant) 30 mg PO DAILY diclofenac sodium 1% (Arthritis Pain (diclofenac)) 4 grams topical QID gabapentin 300 mg PO BID PRN 30 days ketorolac 10 mg PO Q8H PRN ketorolac 10 mg PO Q8H PRN lidocaine 5% 1 patch topical DAILY lidocaine 5% (Lidoderm) 1 patch topical DAILY lidocaine HCl 4% (Aspercreme (lidocaine HCl)) 1 appl topical BID PRN multivitamin with folic acid 400 mcg (Daily-Mitch (with folic acid)) tabs PO prednisone 40 mg (2 x 20 mg) PO DAILY 5 days sucralfate (Carafate) 10 mL PO QIDACHS PRN 14 days PFSH Medical History Elevated cholesterol History of COVID-19 GERD (gastroesophageal reflux disease) Sacroiliac joint dysfunction Lumbar spondylosis Lumbar radiculopathy Surgical History History of esophagogastroduodenoscopy (EGD) H/O colonoscopy History of surgery on arm Social History Household Members: Spouse Alcohol intake: current Alcohol intake frequency: does not drink Patient Tobacco Use Status: Never used Tobacco Physical Exam Vital Signs: BMI result Body Mass Index 33.4 Const Other: Well-nourished well-developed very friendly female awake alert and oriented x3 in no acute distress Extrem Other: Bilateral lower extremity examination shows good capillary refill, no skin lesions noted, normal sensation light touch Right knee examination shows a minimal effusion, mild crepitus with range of motion, tenderness along her medial joint line, positive Kenny's test, no instability Results Reviewed Results Reviewed: Standing full weight-bearing x-rays of the patient's right knee show mild diffuse joint space narrowing, no acute bony abnormalities Assessment & Plan Assessment & Plan (1) Tear of medial meniscus of right knee: Code(s): S83.241A - Other tear of medial meniscus, current injury, right knee, initial encounter Category: Medical (2) Right knee pain: Code(s): M25.561 - Pain in right knee Plan Ms. Pugh presents with right knee pain and mechanical symptoms most likely due to a tear of her medial meniscus. Thus, I will send the patient for an MRI of her right knee for further evaluation. I will see her back once the MRI is completed to discuss the findings and treatment options. Feel free to call me at any time should questions regarding her orthopedic management arise. Thank you very much for asking me to see this very friendly patient. I spent 21 minutes in reviewing the patient's records and imaging studies, seeing the patient and documenting in the medical record. Orders: Orders MR knee RT wo con Today S83.241A - Other tear of medial meniscus, current injury, right knee, initial encounter Coding Level of Care Code New Pt Level 3 (76849) Complex EM visit Add On G2211 Diagnoses Tear of medial meniscus of right knee S83.241A Right knee pain M25.561
== END 2024-07-19 14:36 | disposition home or self-care (01) ==
PROVIDERS: PCP Pediatrics; Visit Provider Orthopaedic Surgery
DX: S83.241A Other tear of medial meniscus, current injury, right knee, initial encounter (principal); M25.561 Pain in right knee
CPT/HCPCS: 99203; G2211

== ENCOUNTER → 2024-07-19 14:20 | Outpatient (BNVA) | payer OTHER, SELFPAY | PROVIDERS: PCP Pediatrics; Visit Provider Orthopaedic Surgery | DX: S83.241A Other tear of medial meniscus, current injury, right knee, initial encounter (principal) | CPT/HCPCS: 99202 ==

== ENCOUNTER → 2024-08-30 09:43 | Outpatient (BNV) | payer OTHER, SELFPAY | PROVIDERS: PCP Pediatrics; Visit Provider Radiology Diagnostic Radiology | DX: S83.241A Other tear of medial meniscus, current injury, right knee, initial encounter (principal) | CPT/HCPCS: 73721 ==

== ENCOUNTER 2024-08-30 09:44 | Outpatient (REF) | payer OTHER, SELFPAY ==
--- NOTE | ~2024-08-30 | MR_ITS ---
CLINICAL HISTORY: S83.241A - Other tear of medial meniscus, current injury, right knee, in... MR right knee without gadolinium Comparison: None Findings: No acute fracture or pathologic bone lesion. Subchondral cysts are seen deep to the articular cartilage of the lateral patella. There is a focus of fissuring or fibrillation involving the medial articular cartilage centrally. There is a small patellofemoral joint effusion. Subchondral cysts are seen at the tibial insertion of the PCL. Ganglion cysts are also seen adjacent to the PCL. There may be a mild grade 1 injury of the medial collateral ligament. The lateral collateral ligament is intact. Patellar retinacula and iliotibial band are intact. Quadriceps, patellar, popliteus, and flexor tendons are intact. There is a horizontal tear of the posterior horn of the medial meniscus reaching the inferior articular surface. The tear extends into the posterior root. Parameniscal cysts are present. The anterior horn is intact. The lateral meniscus is also intact. The ACL and PCL are intact. IMPRESSION: 1. Horizontal tear posterior horn of the medial meniscus extending into the posterior root. Associated parameniscal cysts. 2. Ganglion cysts related to the PCL. 3. Subchondral cysts at the insertion of the PCL on the posterior tibia. 4. Small joint effusion. 5. Can not exclude grade 1 injury of the MCL. 6. Subchondral cysts lateral patella. 7. Small focus of fissuring or fibrillation articular cartilage medial patellar facet. This document has been electronically signed by: Declan Doshi MD on 08/30/2024 13:36:25
--- OUTSIDE RECORDS SUMMARY | 2024-08-30 11:07 | XMS_ITS | Clinical Summary ---
Author Organization [employer] Address [address] [place] [address] 7[address] [place] [address] Care Team Providers Care Support Services Coordinator Name Role Phone Carla Hart MD Primary Care Provider [phone] Allergies No known active allergies Medications polyethylene glycol, PEG, 3350 (Glycolax) 17 GM/SCOOP powder PLEASE SEE ATTACHED FOR DETAILED DIRECTIONS 2 Active naproxen (Naprosyn) 500 MG tabletIndicatio ns:Postmenopaus al osteoporosis,Pa in in joint of right shoulder TAKE 1 TABLET BY MOUTH TWICE A DAY NEEDED FOR PAIN FOR 10 DAYS 60 tablet 5 4 Active Multiple Vitamin (Daily-Mitch Multivitamin) tablet TAKE 1 TABLET BY MOUTH EVERY DAY ONE DOSE 90 tablet 3 4 Active pantoprazole (ProtoNix) 40 MG EC tablet Take 1 tablet (40 mg) by mouth in the morning. 90 tablet 1 4 Active atorvastatin (Lipitor) 40 MG tablet Take 1 tab orally qhs 90 tablet 1 4 Active cholecalciferol VITAMIN D (Vitamin D-3) 50 MCG (1999) capsule Take 1 capsule (50 mcg) by mouth Once per day. 30 capsule 11 4 Active acetaminophen (Tylenol) 500 MG tablet Take 1 tab orally every 6 hours prn pain 30 tablet 4 Active Diclofenac Sodium 1 % gelIndications: Postmenopausal osteoporosis,Pa in in joint of right shoulder APPLY topically tid prn pain 100 g 3 4 Active gabapentin (Neurontin) 300 MG capsule TAKE 1 CAPSULE BY MOUTH 2 TIMES A DAY NEEDED FOR PAIN 4 Active ketorolac (Acular) 0.5 % ophthalmic solution 4 Active calcium carbonate (Os-Alexis) 600 MG tabletIndicatio ns:Postmenopaus al osteoporosis,Pa in in joint of right shoulder Take 1 tablet (600 mg) by mouth with breakfast and with evening meal. 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 Advised re heat to affected area daily Tordol 30mg IM today Apply diclofenac gel bi + Toradol tabs 10mg bid prn pain Advised re stretching exercises FU with PCP in 2-3m Chronic superficial gastritis 05/14/2018 Postmenopausal osteoporosis 11/25/2016 Shoulder joint pain 05/21/2011 Pure hypercholesterolemia 02/18/2011 Resolved Problems Problem Noted Date Diagnosed Date Resolved Date Benign essential hypertension 02/11/2017 05/12/2024 Encounters Date Type Department Care Team Description 06/08/2024 Orders Only [facility] [address] [place], [place] [phone] Carla Hart MD Pain and swelling of knee, right (Primary Dx) 06/06/2024 Telephone [facility] [address] [place] [address] Carla Hart MD callback requested from Last 3 Months Immunizations Name Administration Dates Next Due Influenza High-dose Quadrivalent Preservative Fr ee 04/18/2021 Influenza injectable quadriv alent IIV4 with preservative 06/11/2017,03/30/2015 Influenza injectable quadrivalent preservative f ree 06/13/2016 Influenza, IIV3, injectable 03/27/2014 Influenza, Split (incl. purified surface antigen ) 05/18/2014,04/01/2012 Influenza, seasonal, injectable, preservative fr ee 03/22/2024 Pneumococcal Conjugate PCV 13 09/24/2021 TD (adult), 2 Lf tetanus tox oid, preservative free, adsorbed 03/13/2009 Tdap 09/24/2021 Zoster, Recombinant 09/24/2021 Zoster, live 06/13/2016 Social History Tobacco Use Types Packs/Day Years Used Date Smoking Tobacco: Never Passive Smoke Exposure: Never Smokeless Tobacco: Never Tobacco Cessation:Counseling Given: Not Answered Alcohol Answer Date Recorded How often do you have a drink containing alcohol ? 1 09/11/2023 How many drinks containing a lcohol do you have on a typical day when you are drinking? 0 09/11/2023 How often do you have six or more drinks on one occasion? 0 09/11/2023 Depression Answer Date Recorded Patient Health Questionnaire-9 Score 2 09/11/2023 Patient Health Questionnaire-9 Score 2 09/11/2023 Last PHQ-9: Questionnaire Data Not on file 0 09/11/2023 Housing Stability Answer Date Recorded What is your housing situation today? I have kayla levine 09/11/[address] you li ve. Do you have problems with any of the following? None of the above 09/11/2023 Food Insecurity Answer Date Recorded Within the past 12 months, y ou worried that your food would run out before you got money to buy more: Never True 09/11/2023 Within the past 12 months,th e food you bought just didn't last and you didn't have enough money to get more: Never True 02/2024 Transportation Answer Date Recorded In the past 12 months, has l ack of transportation kept you from medical appts, meetings, work or from getting things needed for daily living? No 09/11/2023 Utilities Answer Date Recorded In the past 12 months, has t he electric, gas, oil or water company threatened to shut off services in your home? No 09/11/2023 Depression Answer Date Recorded Patient Health Questionnaire-2 Score 0 09/11/2023 Comments Unknown Sex and Gender Information Value Date Recorded Sex Assigned at Female 05/05/2022 10:15 AM EDT Legal Sex Female 10:15 AM EDT Gender Identity Female 05/05/2022 10:15 AM EDT Sexual Orientation Straight 05/05/2022 10 :15 AM EDT Last Filed Vital Signs Vital Sign Reading Time Taken Comments Blood Pressure 130/80 05/12/2024 10:49 AM EST Pulse 84 05/12/2024 10:43 AM EST Temperature 36.6 ??C (97.9 ??F) 05/12/2024 10:[address] Respiratory Rate 20 05/12/2024 10:43 AM EST Oxygen Saturation 96% 05/12/2024 10:43 AM EST Inhaled Oxygen Concentration - - Weight 78 kg (172 lb) 05/12/2024 10:43 AM EST Height 149.2 cm (4' 10.75 ) 05/12/2024 10:43 AM EST Body Mass Index 35.04 05/12/2024 10:43 AM EST Plan of Treatment Health Maintenance Due Date Last Done Comments CT Colonography 1955 Dental X-Ray: Bitewings 1955 FIT DNA/Cologuard 1955 FIT 1955 FOBT 1955 Sigmoidoscopy 1955 Hepatitis C Screening 1973 Zoster Vaccines (3 of 3) 11/19/2021 09/24/2021, 03/2016 Pneumococcal Vaccine: 50+ Years (2 of 2 - PPSV23) 09/24/2022 09/24/2021 Dental Oral Exam 05/28/2023 11/24/2022 Dental Prophylaxis 06/01/2023 11/28/2022 COVID-19 Vaccine ( season) 2024 04/23/2021, 10/15/2020, 09/17/2020 Alcohol/Substance Use Screening 09/10/2024 09/11/2023 Depression Screening 09/10/2024 09/11/2023, 09/11/19 24 SDOH Screening 09/10/2024 09/11/2023 Tobacco Screening 05/12/2025 05/12/2024 Mammogram 08/13/2025 08/13/2023, 08/2022, 06/11/2021, Additional history exists Dental X-Ray: Full Mouth 11/25/2025 11/24/2022 Lipid Panel 05/13/2029 05/13/2024, 08/07, 08/13/2022, Additional history exists RSV Patients and Patients Aged 60 years or older (1 - 1-dose 75+ series) 2030 DTaP/Tdap/Td Vaccines (2 - Td or Tdap) 09/25/2031 09/24/2021, 03/13/2009 Colonoscopy 06/04/2032 06/04/2022 Colorectal Cancer Screening 06/04/2032 Influenza Vaccine Completed 03/22/2024, , 06/11/2017, Additional history exists HIB Vaccines Aged Out No longer eligi ble based on patient's age to complete this topic HPV Vaccines Aged Out No longer eligi ble based on patient's age to complete this topic Hepatitis A Vaccines Aged Out No long er eligible based on patient's age to complete this topic Hepatitis B Vaccines Aged Out No long er eligible based on patient's age to complete this topic IPV Vaccines Aged Out No longer eligi ble based on patient's age to complete this topic Meningococcal Vaccine Aged Out No xavier shawn eligible based on patient's age to complete this topic RSV under 20 months Aged Out No longe r eligible based on patient's age to complete this topic Rotavirus Vaccines Aged Out No longer eligible based on patient's age to complete this topic Procedures Procedure Name Priority Date/Time Associated Diagnosis Comments LIPID PANEL, STANDARD Routine 05/13/2024 7:57 AM EST Postmenopausal osteoporosis Pain in joint of right shoulder Pure hypercholesterolemia BI MAMMOGRAM SCREENING TOMOSYNTHESIS BILATERAL Routine 08/13/2023 10:05 AM EST PROPHYLAXIS - ADULT Routine 11/28/2022 9 :00 AM EDT PANORAMIC RADIOGRAPHIC IMAGE Routine 11/24/2022 3:00 PM EDT Encounter for dental examination Dental root caries Edentulous maxilla Teeth missing COMPREHENSIVE ORAL EVALUATION - NEW OR ESTABLISHED PATIENT Routine 11/24/2022 3:00 PM EDT Encounter for dental examination Dental root caries Edentulous maxilla Teeth missing COLONOSCOPY Routine 06/04/2022 from Last 3 Months or Most Recently Relevant to Health Maintenance Results * (ABNORMAL) Lipid Panel, Standard (05/13/2024 7:57 AM EST) Triglycerides 202(H) <150 mg/dL [facility] Comment:Desirable Triglyceri de: less than 150 mg/dLBorderline High Triglyceride 150-199 mg/dLHigh Triglyceride: 200-499 mg/dLVery High Triglyceride: greater than or equal to 5OO mg/dL Cholesterol 211(H) <200 mg/dL [facility] Comment:Desirable Cholestero l: less than 200 mg/dLBorderline High Cholesterol: 200-239 mg/dLHigh Cholesterol: greater than 239 mg/dL LDL Cholesterol Calculated 133(H) <100 mg/dL [facility] Comment:Desirable LDL: less than 100 mg/dLNear Optimal/Above Optimal LDL: 110- 129 mg/dLBorderline High LDL: 130-159 mg/dLHigh LDL: 160-189 mg/dLVery High LDL: greater than or equal to 190 mg/dL HDL Cholesterol 38(L) >40 mg/dL [facility] Comment:Desirable HDL: great er than 40 mg/dL Note: This HDL assay may give artificially low results in patients with liver disease. Blood Venous blood specimen / Unknown 05/13/2024 7:57 AM EST 05/13/2024 8:02 AM EST us Carla Hart MD LAB BLOOD ORDERABLES Final Re sult [facility] [address] [place] [address] [phone] * BI Mammogram Screening Tomosynthesis Bilateral (08/13/2023 10:05 AM EST) Anatomical Region Laterality Modality Breast Bilateral Mammography 08/13/2023 10:0 5 AM EST Narrative 09/05/2023 8:14 PM EST ? [facility] ? [address] ?[place] [address] ? Mammography Report ? Signed ? Patient: Keaton,Celeste ?MR#: [id number] ? : 1955 ?Acct:[id number] ? Age/Sex: 68 / F ?ADM Date: 02/08/24 ? Loc: HO.MAMMO ? Attending Trinidad Hart MD ? Ordering Physician: Carla Hart MD ?Results: 1Ne ?? gative ? Date of Service: 08/13/23 ?Follow Up: 1 Year From Orig ?? inal Mammogram ? Procedure(s): MM tomosynthesis screening BI ?? Accession Number(s): [id number] ? cc: Carla Hart MD ? EXAMINATION: ?? MM SCREENING DIGITAL BREAST TOMOSYNTHESIS, BILATERAL ? CLINICAL INFORMATION: ? Screening. Asymptomatic. ? COMPARISON: ?? Mammography: This study is compared with prior exams dating back to ?? 2017. ? TECHNIQUE: ?? Digital breast tomosynthesis is performed in both the craniocaudal and ?? mediolateral oblique views along with computer-aided detection (CAD). ?? Synthesized 2D images are generated from the tomosynthesis. ? FINDINGS: ?? The breasts are almost entirely fatty (ACR BI-RADS breast composition ?? Category a). ? There are no significant masses, abnormal calcifications, or other ?? abnormalities. ? MM/MM tomosynthesis screening BI ?? IMPRESSION: ?? No mammographic evidence of malignancy. ? ASSESSMENT: ? BI-RADS BI-RADS 1 - Negative ? RECOMMENDATION: ?? Routine annual mammography screening. ? 1 year F/U ? This examination should not preclude the clinical evaluation of a ?? suspicious palpable abnormality. ? This patient's information was entered into a reminder system with a ?? target due date for their next mammogram. ? Dictated By: ?Estela Trinh MD ? Signed By: ?<Electronically signed by Estela Trinh MD in OV> ? 09/05/232010 ? DD/ ? TD/TT: ? Load Manager: ? Procedure Note Donotuseinterpreter, Image - 09/05/2023 [facility] [address] [place] [address] Mammography Report Signed Patient: Kash Pugh#: [id number] : 5Acct:[id number] Age/Sex: 68 / FADM Date: 08/13/23 Loc: HO.MAMMO Attending Dr: Carla Hart MD Ordering Physician: Carla Hart MDResults: 1Ne gative Date of Service: 08/13/23Follow Up: 1 Year From Orig inal Mammogram Procedure(s): MM tomosynthesis screening BI Accession Number(s): [id number] cc: Carla Hart MD EXAMINATION: MM SCREENING DIGITAL BREAST TOMOSYNTHESIS, BILATERAL CLINICAL INFORMATION: Screening. Asymptomatic. COMPARISON: Mammography: This study is compared with prior exams dating back to 2018. TECHNIQUE: Digital breast tomosynthesis is performed in both the craniocaudal and mediolateral oblique views along with computer-aided detection (CAD). Synthesized 2D images are generated from the tomosynthesis. FINDINGS: The breasts are almost entirely fatty (ACR BI-RADS breast composition Category a). There are no significant masses, abnormal calcifications, or other abnormalities. MM/MM tomosynthesis screening BI IMPRESSION: No mammographic evidence of malignancy. ASSESSMENT: BI-RADS BI-RADS 1 - Negative RECOMMENDATION: Routine annual mammography screening. 1 year F/U This examination should not preclude the clinical evaluation of a suspicious palpable abnormality. This patient's information was entered into a reminder system with a target due date for their next mammogram. Dictated By: Estela Trinh MD Signed By: <Electronically signed by Estela Trinh MD in OV> 09/05/232010 DD/ 1005 TD/TT: Load Manager: us Carla Hart MD IMG BI PROCEDURES Final Resul t * Colonoscopy (06/04/2022) Anatomical Region Laterality Modality Endoscopy Carla Hart MD ENDOSCOPY PROCEDURE ORDERABLE S Final Result from Last 3 Months or Most Recently Relevant to Health Maintenance Insurance [facility] Care Teams Support Services Coordinator Relationship Specialty Start Date End Date Carla Hart MD [address] [place] [address] STEVE Torres [id number] PCP - General Family Medicine 07/06/18
--- OUTSIDE RECORDS SUMMARY | 2024-08-30 11:07 | XMS_ITS | Encounter Summary ---
Author Organization [employer] Address [address] [facility] 7t [place] [address] Care Team Providers Care Systems Software Developer Name Role Phone Carla Hart MD Primary Care Provider [phone] Encounter Details Date Type Department Care Team (Latest Contact Info) Description 08/13/2022 Orders Only [facility] [address] [place] [address] Carla Hart MD [address] [place], [place] [phone] Benign essential hypertension (Primary Dx); Pain of both shoulder joints; Pure hypercholesterolemia Social History Tobacco Use Types Packs/Day Years Used Date Smoking Tobacco: Never Passive Smoke Exposure: Never Smokeless Tobacco: Never Depression Answer Date Recorded Patient Health Questionnaire-9 Score 5 08/12/2022 Depression Answer Date Recorded Patient Health Questionnaire-2 Score 2 08/12/2022 Comments Unknown Sex and Gender Information Value Date Recorded Sex Assigned at Female 05/05/2022 10:15 AM EDT Legal Sex Female 10:15 AM EDT Gender Identity Female 05/05/2022 10:15 AM EDT Sexual Orientation Straight 05/05/2022 10 :15 AM EDT COVID-19 Exposure Response Date Recorded In the last 10 days, have yo u been in contact with someone who was confirmed or suspected to have Coronavirus/COVID-19? No / Unsure 08/12/2022 11:23 AM EST documented as of this encounter Plan of Treatment Scheduled Orders Name Type Priority Associated Diagnoses Orde r Schedule CBC auto differential Lab Routine Benign essential hypertension Pain of both shoulder joints Pure hypercholesterolemia Expected: 08/13/2022 (Approximate), Expires: 08/13/2023 Basic Metabolic Panel Lab Routine Benign essential hypertension Pain of both shoulder joints Pure hypercholesterolemia Expected: 08/13/2022 (Approximate), Expires: 08/13/2023 Lipid Panel, Standard Lab Routine Benign essential hypertension Pain of both shoulder joints Pure hypercholesterolemia Expected: 09/10/2022 (Approximate), Expires: 08/13/2023 Hepatic Function Panel Lab Routine Benign essential hypertension Pain of both shoulder joints Pure hypercholesterolemia Expected: 09/10/2022 (Approximate), Expires: 08/13/2023 Vitamin D, 25-Hydroxy, Total, Immunoassay Lab Routine Benign essential hypertension Pain of both shoulder joints Pure hypercholesterolemia Expected: 08/13/2022 (Approximate), Expires: 08/13/2023 Vitamin B12 Lab Routine Benign essential hypertension Pain of both shoulder joints Pure hypercholesterolemia Expected: 08/13/2022 (Approximate), Expires: 08/13/2023 Hemoglobin A1c Lab Routine Benign essential hypertension Pain of both shoulder joints Pure hypercholesterolemia Expected: 08/13/2022 (Approximate), Expires: 08/13/2023 Sed Rate by Modified [place] Lab Routine Benign essential hypertension Pain of both shoulder joints Pure hypercholesterolemia Expected: 08/13/2022 (Approximate), Expires: 08/13/2023 TSH W/Reflex to FT4 Lab Routine Benign essential hypertension Pain of both shoulder joints Pure hypercholesterolemia Expected: 08/13/2022 (Approximate), Expires: 08/13/2023 documented as of this encounter Visit Diagnoses Diagnosis Benign essential hypertension- Primary Essential hypertension, benign Pain of both shoulder joints Pure hypercholesterolemia documented in this encounter Additional Health Concerns Assessment Noted Time PHQ-9 Depression Total Score: 5 08/12/19 23 11:47 AM EST documented as of this encounter Care Teams Systems Software Developer Relationship Specialty Start Date End Date Carla Hart MD [address] [place] [address] PCP - General Family Medicine 07/06/18 documented as of this encounter
--- OUTSIDE RECORDS SUMMARY | 2024-08-30 11:07 | XMS_ITS | Encounter Summary ---
Author Organization [employer] Address [address] [facility] [address] [place] [address] Care Team Providers Care Diet Clerk Name Role Phone Carla Hart MD Primary Care Provider [phone] Encounter Details Date Type Department Care Team ([facility] st Contact Info) Description 08/13/2022 Telephone [facility] [address] [place] [address] Carla Hart MD [address] [place], [place] [phone] Social History Tobacco Use Types Packs/Day Years [...] as of this encounter Plan of Treatment Not on file documented as of this encounter Visit Diagnoses Not on filedocumented in this encounter Additional Health Concerns Assessment Noted Time PHQ-9 Depression Total Score: 5 08/12/19 23 11:47 AM EST documented as of this encounter Care Teams Diet Clerk Relationship Specialty Start Date End Date Carla Hart MD [address] [place] [id number] PCP - General Family Medicine 07/06/18 documented as of this encounter
--- OUTSIDE RECORDS SUMMARY | 2024-08-30 11:07 | XMS_ITS | Encounter Summary ---
Author Organization [employer] Address [address] [place] [address] 7 [place] [address] Care Team Providers Care Plate Shop Helper Name Role Phone Carla Hart MD Primary Care Provider [phone] Reason for Visit * Reason Onset Date Comments Pre op 04/28/2024 Encounter Details Date Type Department Care Team ([facility] st Contact Info) Description 04/28/2024 Telephone [facility] [address] [place], [place] [phone] Carla Hart MD [address] [place] [address] Pre op Social History Tobacco Use Types Packs/Day Years Used Date Smoking Tobacco: Never Passive Smoke Exposure: Never Smokeless Tobacco: Never Alcohol Answer Date Recorded How often do [...] Orientation Straight 05/05/2022 10 :15 AM EDT documented as of this encounter Miscellaneous Notes * Telephone Encounter - Vivian Coronel - 04/28/2024 10:40 AM EDT Date of Surgery: 05/20/24 & 06/10/24 Surgical procedure being done:(05/20) Right eye cataract (06/10) Left eye cataract Type of anesthesia: MAC Lab needed: No EKG: No Surgeon's name: Paulo Mili Facility name: [facility] Surgeon's office number: [phone] Surgeon's office fax number: [phone] Contact name (person you spoke with): Noelle Last office note from surgeon requested: No Send Message to Vivian Coronel and Isaak Blanton documented in this encounter Plan of Treatment Not on file documented as of this encounter Visit Diagnoses Not on filedocumented in this encounter Additional Health Concerns Assessment Noted Time PHQ-9 Depression Total Score: 2 09/11/19 10:02 AM EST documented as of this encounter Care Teams Plate Shop Helper Relationship Specialty Start Date End Date Carla Hart MD [address] [place] [address] PCP - General Family Medicine 07/06/18 documented as of this encounter
--- OUTSIDE RECORDS SUMMARY | 2024-08-30 11:07 | XMS_ITS | Encounter Summary ---
Author Organization [employer] Address [address] [facility] 7 [place] [address] Care Team Providers Care Health Lead Name Role Phone Carla Hart MD Primary Care Provider [phone] Reason for Visit * Reason Onset Date Comments callback requested 06/06/2024 Encounter Details Date Type Department Care Team ([facility] st Contact Info) Description 06/06/2024 Telephone [facility] [address] [place] [address] Carla Hart MD [address] [place] [phone] callback requested Social History Tobacco Use Types Packs/Day Years [...] encounter Miscellaneous Notes * Telephone Encounter - Minerva Samuel RN - 06/08/2024 1:37 PM EST Returned call to pt regarding message below. Pt is agreeable to Ortho referral. Pt informed messagewould be sent to PCP and once referral is generated, ortho will contact pt for scheduling. Pt agrees with plan. * Telephone Encounter - Minerva Samuel RN - 06/07/2024 1:58 PM EST Please review and advise if referral to PT is indicated to help with pt mobility. * Telephone Encounter - Ambrocio Chi - 06/06/2024 10:37 AM EST Tc from pt requesting a callback in regards her knees she will like to know if PCP has any plans onhow can she walk better due to knee pain constantly. Callback number [phone] documented in this encounter Plan of Treatment Not on file documented as of this encounter Visit Diagnoses Not on filedocumented in this encounter Additional Health Concerns Assessment Noted Time PHQ-9 Depression Total Score: 2 09/11/19 24 10:02 AM EST documented as of this encounter Care Teams Health Lead Relationship Specialty Start Date End Date Carla Hart MD [address] [place] [id number] PCP - General Family Medicine 07/06/18 documented as of this encounter
== END 2024-08-30 09:45 | disposition home or self-care (01) ==
LOC: HO.MRI 09:44
PROVIDERS: PCP Pediatrics; Visit Provider Orthopaedic Surgery
DX: S83.241A Other tear of medial meniscus, current injury, right knee, initial encounter (principal)
CPT/HCPCS: 73721

== ENCOUNTER 2024-09-07 12:51 | Outpatient (REF) | payer OTHER, SELFPAY ==
--- OUTSIDE RECORDS SUMMARY | 2024-09-07 15:10 | XMS_ITS | Clinical Summary ---
Author Organization [employer] Address [address] [place] [address] [address] [place] [address] Care Team Providers Care Supervisor Liquefaction Name Role Phone Carla Hart MD Primary Care Provider [phone] Allergies No known active allergies Medications polyethylene [...] Encounters Date Type Department Care Team Description 09/06/2024 Telephone [facility] MED & PEDS [address] [place] [address] Carla Hart MD Nurse Triage 08/30/2024 Orders Only [facility] External Provider, [facility] from Last 3 Months Immunizations Name Administration [...] Procedure Name Priority Date/Time Associated Diagnosis Comments KNEE WO CONTRAST RIGHT Routine 08/30/2024 1:36 PM EST LIPID PANEL, STANDARD Routine 05/13/2024 7:57 AM [...] Recently Relevant to Health Maintenance Results * MR Knee w/o Contrast Right (08/30/2024 1:36 PM EST) Anatomical Region Laterality Modality Magnetic Resonan ce 08/30/2024 1:36 PM EST Narrative 08/30/2024 1:37 PM EST ? [facility] ?[address] ?[place] [address] ? Magnetic Resonance Report ? Signed ? Patient: Keaton,Celeste ?MR#: [id number] ? : 1955 ?Acct:[id number] ? Age/Sex: 69 / F ?ADM Date: 08/30/24 ? Loc: HO.MRI ? Attending Dr: Jeremiah Eldridge MD ? Ordering Physician: Jeremiah Eldridge MD ?? Date of Service: 08/30/24 ?? Procedure(s): MR knee RT wo con ?? Accession Number(s): [id number] ? cc: Carla Hart MD; Jeremiah Eldridge MD ? CLINICAL HISTORY: I41.990J - Other tear of medial meniscus, current injury, right knee, in... ? MR right knee without gadolinium ? Comparison: None ? Findings: ?? No acute fracture or pathologic bone lesion. ?? Subchondral cysts are seen deep to the articular cartilage of the lateral ?? patella. There is a focus of fissuring or fibrillation involving the ?? medial articular cartilage centrally. ?? There is a small patellofemoral joint effusion. ?? Subchondral cysts are seen at the tibial insertion of the PCL. Ganglion ?? cysts are also seen adjacent to the PCL. ? There may be a mild grade 1 injury of the medial collateral ligament. The ?? lateral collateral ligament is intact. ?? Patellar retinacula and iliotibial band are intact. ?? Quadriceps, patellar, popliteus, and flexor tendons are intact. ? There is a horizontal tear of the posterior horn of the medial meniscus ?? reaching the inferior articular surface. The tear extends into the ?? posterior root. Parameniscal cysts are present. ?? The anterior horn is intact. The lateral meniscus is also intact. ? The ACL and PCL are intact. ? IMPRESSION: ?? 1. Horizontal tear posterior horn of the medial meniscus extending into ?? the posterior root. Associated parameniscal cysts. ?? 2. Ganglion cysts related to the PCL. ?? 3. Subchondral cysts at the insertion of the PCL on the posterior tibia. ?? 4. Small joint effusion. ?? 5. Can not exclude grade 1 injury of the MCL. ?? 6. Subchondral cysts lateral patella. ?? 7. Small focus of fissuring or fibrillation articular cartilage medial ?? patellar facet. ? This document has been electronically signed by: Declan Doshi MD on ?? 08/30/2024 13:36:25 ? Dictated By: ?Declan Doshi MD ? Signed By: ?<Electronically signed by Declan Doshi MD in OV> ? 08/30/241336 ? DD/ 35 ? TD/TT: 08/30/246 ? Cinnamon Grinder: ? Procedure Note Donot[place], Image - 08/30/2024 [place] [address] Magnetic Resonance Report Signed Patient: Kash Pugh#: [id number] : 5Acct:[id number] Age/Sex: 69 / FADM Date: 08/30/24 Loc: HO.MRI Attending Dr: Jeremiah Eldridge MD Ordering Physician: Jeremiah Eldridge MD Date of Service: 08/30/24 Procedure(s): MR knee RT wo con Accession Number(s): [id number] cc: Carla Hart MD; Jeremiah Eldridge MD CLINICAL HISTORY: S83.241A - Other tear of medial meniscus, currentinjury, right knee, in... MR right knee without gadolinium Comparison: None Findings: No acute fracture or pathologic bone lesion. Subchondral cysts are seen deep to the articular cartilage of the lateral patella. There is a focus of fissuring or fibrillation involving the medial articular cartilage centrally. There is a small patellofemoral joint effusion. Subchondral cysts are seen at the tibial insertion of the PCL. Ganglion cysts are also seen adjacent to the PCL. There may be a mild grade 1 injury of the medial collateral ligament. The lateral collateral ligament is intact. Patellar retinacula and iliotibial band are intact. Quadriceps, patellar, popliteus, and flexor tendons are intact. There is a horizontal tear of the posterior horn of the medial meniscus reaching the inferior articular surface. The tear extends into the posterior root. Parameniscal cysts are present. The anterior horn is intact. The lateral meniscus is also intact. The ACL and PCL are intact. IMPRESSION: 1. Horizontal tear posterior horn of the medial meniscus extending into the posterior root. Associated parameniscal cysts. 2. Ganglion cysts related to the PCL. 3. Subchondral cysts at the insertion of the PCL on the posterior tibia. 4. Small joint effusion. 5. Can not exclude grade 1 injury of the MCL. 6. Subchondral cysts lateral patella. 7. Small focus of fissuring or fibrillation articular cartilage medial patellar facet. This document has been electronically signed by: Declan Doshi MD on 08/30/2024 13:36:25 Dictated By: Declan Doshi MD Signed By: <Electronically signed by Declan Doshi MD in OV> 08/30/24 1337 DD/ 1336 TD/TT: 08/30/24 1336 Cinnamon Grinder: [facility] External Provider IMG MRI PROCEDURES Final Result * (ABNORMAL) Lipid Panel, Standard (05/13/2024 7:57 AM EST) Triglycerides 202(H) <150 mg/dL [facility] Comment:Desirable Triglyceri de: less than 150 mg/dLBorderline High Triglyceride 150-199 mg/dLHigh Triglyceride: 200-499 mg/dLVery High Triglyceride: greater than or equal to 5OO mg/dL Cholesterol 211(H) <200 mg/dL [facility] Comment:Desirable Cholestero l: less than 200 mg/dLBorderline High Cholesterol: 200-239 mg/dLHigh Cholesterol: greater than 239 mg/dL LDL Cholesterol Calculated 133(H) <100 mg/dL [facility] Comment:Desirable LDL: less than 100 mg/dLNear Optimal/Above Optimal LDL: 110- 129 mg/dLBorderline High LDL: 130-159 mg/dLHigh LDL: 160-189 mg/dLVery High LDL: greater than or equal to 190 mg/dL HDL Cholesterol 38(L) >40 mg/dL [facility] Comment:Desirable HDL: great er than 40 mg/dL Note: This HDL assay may give artificially low results in patients with liver disease. Blood Venous blood specimen / Unknown 05/13/2024 7:57 AM EST 05/13/2024 8:02 AM EST Carla Hart MD LAB BLOOD ORDERABLES Final Re sult [facility] [address] [place] [phone] * BI Mammogram Screening Tomosynthesis Bilateral (08/13/2023 10:05 AM EST) Anatomical Region Laterality Modality Breast Bilateral Mammography 08/13/2023 10:0 5 AM EST Narrative 09/05/2023 8:14 PM EST ? [facility] ? [address] ?[place] [address] ? Mammography Report ? Signed ? Patient: Keaton,Celeste ?MR#: [id number] ? : 1955 ?Acct:[id number] ? Age/Sex: 68 / F ?ADM Date: 08/13/23 ? Loc: HO.MAMMO ? Attending Dr: Carla Hart MD ? Ordering Physician: Carla Hart MD ?Results: 1Ne ?? gative ? Date of Service: 08/13/23 ?Follow Up: 1 Year From Orig ?? inal Mammogram ? Procedure(s): MM tomosynthesis screening BI ?? Accession Number(s): [id number] ? cc: Carla Hart MD ? EXAMINATION: ?? MM SCREENING DIGITAL BREAST TOMOSYNTHESIS, BILATERAL ? CLINICAL INFORMATION: ? Screening. Asymptomatic. ? COMPARISON: ?? Mammography: This study is compared with prior exams dating back to ?? 2018. ? TECHNIQUE: ?? Digital breast tomosynthesis is [...] MD in OV> ? 09/05/232010 ? DD/ 1005 ? TD/TT: ? Cinnamon Grinder: ? Procedure Note [place], Image - 09/05/2023 [place] [facility] [address] [place] [address] Mammography Report Signed Patient: Kash Pugh#: [id number] : 5Acct:[id number] Age/Sex: 68 / FADM Date: 08/13/23 Loc: ELIGIOO Attending Dr: Carla Hart MD Ordering Physician: Carla Hart MDResults: 1Ne gative Date of Service: 08/13/23Follow Up: 1 Year From Orig inal Mammogram Procedure(s): MM tomosynthesis screening BI Accession Number(s): [id number] cc: Carla Hart MD EXAMINATION: MM SCREENING [...] MD in OV> 09/05/232010 DD/ 1005 TD/TT: Cinnamon Grinder: Carla Hart MD IMG BI PROCEDURES Final Resul t * Colonoscopy (06/04/2022) Anatomical Region Laterality Modality Endoscopy Carla Hart MD ENDOSCOPY PROCEDURE ORDERABLE S Final Result from Last 3 Months or Most Recently Relevant to Health Maintenance Insurance [facility] Care Teams Supervisor Liquefaction Relationship Specialty Start Date End Date Carla Hart MD [address] [place] [id number] PCP - General Family Medicine 07/06/18
--- OUTSIDE RECORDS SUMMARY | 2024-09-07 15:10 | XMS_ITS | Encounter Summary ---
Author Organization [employer] Address [address] [place] [address] [address] [place] [address] Care Team Providers Care Clinical Social Work Therapist Name Role Phone Carla Hart MD Primary Care Provider [phone] Reason for Visit * Reason Onset Date Comments Nurse Triage 09/06/2024 Encounter Details Date Type Department Care Team ([facility] st Contact Info) Description 09/06/2024 Telephone [facility] [address] [place], [place] [phone] Carla Hart MD [address] [place] [address] Nurse Triage Social History Tobacco Use Types Packs/Day Years [...] encounter Miscellaneous Notes * Telephone Encounter - Isabell Howell LPN - 09/06/2024 10:39 AM EST Triage call returned to patient with BLS [id number]. Patient reports concerns of fatigue and lethargy.Patient reports she went to her country [facility] and was identified to have issues with her BP and heart as well as parasites. Patient was prescribed Aracure .16 and Betauno 2.5mg daily.Patient with fatigue and BP 92/60 this morning. Reports fluid intake is good. No dizziness or fainting. Did not take pills today as she skyla yesterday. Takes only atorvastatin as prescribed by PCP here. Patient offered afternoon apptwith Team provider and declined. Reviewed [facility] availability and declined at this time.Reviewed with patient home care recommendations, reasons to call back and symptoms that require immediate evaluation in UC or ER. Patient verbalized understanding and agrees. Forwarded to PCP and team as FYI to follow up PRN Protocol Used: Blood Pressure - Low (Adult) Protocol-Based Disposition: See in Office or Video Visit Today Override (Final) Disposition: Discuss with PCP and Callback by Nurse Today Override Reason: Needs education Positive Triage Question: * Systolic BP 90-110 while taking blood pressure medications * All higher-acuity triage questions were negative Care Advice Discussed: * Reasons To Call Back - Lightheadedness, weakness, or dizziness occurs - Systolic BP under 90 - You feel sick - You become worse * Telephone Encounter - Irma Olivo - 09/06/2024 10:08 AM EST Symptom: Lethargic (Tired) believes its because her Blood pressure and is concern Outcome: Schedule an appointment to be seen within 3 days Reason: Caller denied all higher acuity questions The caller accepted this outcome. documented in this encounter Plan of Treatment Not on file documented as of this encounter Visit Diagnoses Not on filedocumented in this encounter Additional Health Concerns Assessment Noted Time PHQ-9 Depression Total Score: 2 09/11/19 24 10:02 AM EST documented as of this encounter Care Teams Clinical Social Work Therapist Relationship Specialty Start Date End Date Carla Hart MD [address] [place] [id number] PCP - General Family Medicine 07/06/18 documented as of this encounter
--- OUTSIDE RECORDS SUMMARY | 2024-09-07 15:10 | XMS_ITS | Encounter Summary ---
Author Organization [employer] Address [address] [facility] [address] [place] [address] Care Team Providers Care Fan Installer Name Role Phone Carla Hart MD Primary Care Provider [phone] Encounter Details Date Type Department Care Team ([facility] st Contact Info) Description 08/13/2022 Telephone [facility] MEDICINE [address] [place] [address] Carla Hart MD [address] [place], [place] [phone] Social History Tobacco Use Types Packs/Day Years [...] documented as of this encounter Care Teams Fan Installer Relationship Specialty Start Date End Date Carla Hart MD [address] [place] [address] PCP - General Family Medicine 07/06/18 documented as of this encounter
--- OUTSIDE RECORDS SUMMARY | 2024-09-07 15:10 | XMS_ITS | Encounter Summary ---
Author Organization [employer] Address [address] [facility] 7 [place] [address] Care Team Providers Care Welder Plasma Arc Name Role Phone Carla Hart MD Primary Care Provider [phone] Reason for Visit * Reason Onset Date Comments callback requested 06/06/2024 Encounter Details Date Type Department Care Team ([facility] st Contact Info) Description 06/06/2024 Telephone [facility] MEDICINE [address] [place] [address] Carla Hart MD [address] [place] [phone] callback requested Social History Tobacco Use Types [...] due to knee pain constantly. Callback number [phone] documented in this encounter Plan of Treatment Not on file documented as of this encounter Visit Diagnoses Not on filedocumented in this encounter Additional Health Concerns Assessment Noted Time PHQ-9 Depression Total Score: 2 09/11/19 24 10:02 AM EST documented as of this encounter Care Teams Welder Plasma Arc Relationship Specialty Start Date End Date Carla Hart MD [address] [place] [phone] PCP - General Family Medicine 07/06/18 documented as of this encounter
--- OUTSIDE RECORDS SUMMARY | 2024-09-07 15:10 | XMS_ITS | Encounter Summary ---
Author Organization [employer] Address [address] [facility] 7t [place] [address] Care Team Providers Care Hand Marker Name Role Phone Carla Hart MD Primary Care Provider [phone] Encounter Details Date Type Department Care Team (Latest Contact Info) Description 08/13/[address] [facility] MEDICINE [address] [place] [address] Carla Hart MD [address] [place], [place] [phone] Benign essential hypertension (Primary Dx); Pain of [...] documented as of this encounter Care Teams Hand Marker Relationship Specialty Start Date End Date Carla Hart MD [address] [place] [address] PCP - General Family Medicine 07/06/18 documented as of this encounter
--- OUTSIDE RECORDS SUMMARY | 2024-09-07 15:10 | XMS_ITS | Encounter Summary ---
Author Organization [employer] Address [address] [place] [address] [address] [place] [address] Care Team Providers Care Trimming Cutter Machine Name Role Phone Carla Hart MD Primary Care Provider [phone] Reason for Visit * Reason Onset Date Comments Pre op 04/28/2024 Encounter Details Date Type Department Care Team ([facility] st Contact Info) Description 04/28/2024 Telephone [facility]EDS [address] [place], [place] [phone] Carla Hart MD [address] [place] [address] Pre op Social History Tobacco Use Types [...] name: Cataract and Lasik Surgeon's office number: [phone] Surgeon's office fax number: [phone] Contact name (person you spoke with): Noelle [...] documented as of this encounter Care Teams Trimming Cutter Machine Relationship Specialty Start Date End Date Carla Hart MD [address] [place] [address] PCP - General Family Medicine 07/06/18 documented as of this encounter
--- OUTSIDE RECORDS SUMMARY | 2024-09-07 15:10 | XMS_ITS | Encounter Summary ---
Author Organization [employer] Address [address] [facility] 7t [place] [address] Care Team Providers Care Keno Clerk Name Role Phone Carla Hart MD Primary Care Provider [phone] Encounter Details Date Type Department Care Team (Late st Contact Info) Description 08/30/2024 Orders Only [facility] External Provider, [facility] Social History Tobacco Use Types Packs/Day Years [...] AM EDT documented as of this encounter Plan of Treatment Not on file documented as of this encounter Procedures Procedure Name Priority Date/Time Associated Diagnosis Comments MR KNEE WO CONTRAST RIGHT Routine 08/30/2024 1:36 PM EST documented in this encounter Results * MR Knee w/o Contrast Right (08/30/2024 1:36 PM EST) Anatomical Region Laterality Modality Magnetic Resonan ce 08/30/2024 1:36 PM EST Narrative 08/30/2024 1:37 PM EST ? [facility] ?[address] ?[place] [address] ? Magnetic Resonance Report ? Signed ? Patient: Celeste Pugh ?MR#: [id number] ? : 1955 ?Acct:[id number] ? Age/Sex: 69 / F ?ADM Date: 08/30/24 ? Loc: HO.MRI ? Attending Dr: Jeremiah Eldridge MD ? Ordering Physician: Jeremiah Eldridge MD ?? Date of Service: 08/30/24 ?? Procedure(s): MR knee RT wo con ?? Accession Number(s): [id number] ? cc: Carla Hart MD; Jeremiah Eldridge MD ? CLINICAL HISTORY: S82.868A - Other tear of medial meniscus, current [...] by Declan Doshi MD in OV> ? 08/30/24 1337 ? DD/ 1336 ? TD/TT: 08/30/246 ? Heading Repairer: ? Procedure Note Nathan Reeder - 08/30/[address] [address] Magnetic Resonance Report Signed Patient: Kash Pugh#: [id number] : 5Acct:[id number] Age/Sex: 69 / FADM Date: 08/30/24 Loc: HO.MRI Attending Dr: Jeremiah Eldridge MD Ordering Physician: Jeremiah Eldridge MD Date of Service: 08/30/24 Procedure(s): MR knee RT wo con Accession Number(s): [id number] cc: Carla Hart MD; Jeremiah Eldridge MD [...] MD Signed By: <Electronically signed by Declan Dsohi MD in OV> 08/30/24 1337 DD/ 1336 TD/TT: 08/30/24 1336 Heading Repairer: [facility] External Provider IMG MRI PROCEDURES Final Result documented in this encounter Visit Diagnoses Not on filedocumented in this encounter Additional Health Concerns Assessment Noted Time PHQ-9 Depression Total Score: 2 09/11/19 24 10:02 AM EST documented as of this encounter Care Teams Keno Clerk Relationship Specialty Start Date End Date Carla Hart MD [address] [place] [address] PCP - General Family Medicine 07/06/18 documented as of this encounter
== END 2024-09-07 12:52 | disposition home or self-care (01) ==
LOC: HO.MAMMO 12:51
PROVIDERS: PCP Pediatrics; Visit Provider Pediatrics
DX: Z12.31 Encounter for screening mammogram for malignant neoplasm of breast (principal)
CPT/HCPCS: 77063; 77067

== ENCOUNTER → 2024-09-07 14:15 | Outpatient (BNV) | payer OTHER, SELFPAY | PROVIDERS: PCP Pediatrics; Visit Provider Internal Medicine | DX: Z12.31 Encounter for screening mammogram for malignant neoplasm of breast (principal) | CPT/HCPCS: 77063; 77067 ==

== ENCOUNTER 2024-10-06 11:11 | Outpatient (AMB) | payer OTHER, SELFPAY ==
[2024-10-06 11:29] VITALS: BMI 33.4
--- NOTE | 2024-10-06 11:29 | A.OFFVIS_ITS ---
Vital Signs 10/06/24 11:29 Height 5 ft Weight 171 lb BMI 33.4 Intake Visit Reasons: Right knee pain and giving way Intake Note: Celeste is a 69 year old female who presents today for evaluation of her right knee pain. She describes her pain as sharp in nature. Her pain has gotten worse over the last year in spite of continued non operative treatments. Most of the pain is along the medial and anterior aspects of her knee. She has done physical therapy exercises which aggravated her pain. She has also tried Tylenol and naproxen which gave her minimal relief. She has also tried [place] topical cream which gives her mild relief. She states that her right knee will give out several times per day. Power Tool Repair Technician Required: Yes Power Tool Repair Technician Language: Show Host/Hostess Name: FAVIO hSea/PIERO Allergies No Known Allergies Allergy (Verified 10/06/24 11:30) Medication List - Last Reconciled 10/06/24 by Jeremiah Eldridge MD acetaminophen (Tylenol Extra Strength) 500 mg PO Q6H PRN atorvastatin 40 mg PO BEDTIME calcium carbonate 600 mg PO BID cholecalciferol (vitamin D3) 50 mcg PO Q12H cyclobenzaprine 5 mg PO Q8H PRN 30 days dexlansoprazole (Dexilant) 30 mg PO DAILY diclofenac sodium 1% (Arthritis Pain (diclofenac)) 4 grams topical QID gabapentin 300 mg PO BID PRN 30 days ketorolac 10 mg PO Q8H PRN ketorolac 10 mg PO Q8H PRN lidocaine 5% 1 patch topical DAILY lidocaine 5% (Lidoderm) 1 patch topical DAILY lidocaine HCl 4% (Aspercreme (lidocaine HCl)) 1 appl topical BID PRN multivitamin with folic acid 400 mcg (Daily-Mitch (with folic acid)) tabs PO sucralfate (Carafate) 10 mL PO QIDACHS PRN 14 days PFSH Medical History Elevated cholesterol History of COVID-19 GERD (gastroesophageal reflux disease) Sacroiliac joint dysfunction Lumbar spondylosis Lumbar radiculopathy Surgical History History of esophagogastroduodenoscopy (EGD) H/O colonoscopy History of surgery on arm Social History Household Members: Spouse Alcohol intake: current Alcohol intake frequency: does not drink Patient Tobacco Use Status: Never used Tobacco Physical Exam Vital Signs: BMI result Body Mass Index 33.4 Const Other: Well-nourished well-developed very friendly female awake alert and oriented x3 in no acute distress Extrem Other: Bilateral lower extremity examination shows good capillary refill, no skin lesions noted, normal sensation light touch Right knee examination shows a minimal effusion, minimal crepitus with range of motion, tenderness along her medial joint line, positive Kenny's test, no instability Results Reviewed Results Reviewed: Standing full weight-bearing x-rays of the patient's right knee show mild diffuse joint space narrowing, no acute bony abnormalities MRI of the patient's right knee shows mild diffuse degenerative changes as well as a tear of the medial meniscus Assessment & Plan Assessment & Plan (1) Tear of medial meniscus of right knee: Code(s): S83.241A - Other tear of medial meniscus, current injury, right knee, initial encounter Category: Medical Plan Ms. Pugh presents with right knee pain and mechanical symptoms due to a medial meniscus tear. I had a lengthy discussion with the patient regarding the treatment options. At this point she appears to be failing continued non operative treatments. She is considering undergoing right knee arthroscopic surgery later this year. She will contact my office to pick a surgery date if she chooses to do so. Surgery will involve right knee arthroscopic partial medial meniscectomy. Otherwise she will follow up on an as-needed basis. I did give her a prescription for a Medrol Dosepak to help with her symptoms in the meantime. Feel free to call me at any time should questions regarding her orthopedic management arise. I spent 21 minutes in reviewing the patient's records and imaging studies, seeing the patient and documenting in the medical record. Medications: New methylprednisolone (Medrol (Marco)) PO PER PKG DIR 21 ea 0RF Coding Level of Care Code Est Pt Level 3 (84625) Complex EM visit Add On G2211 Diagnoses Tear of medial meniscus of right knee S83.241A
--- OUTSIDE RECORDS SUMMARY | 2024-10-06 12:33 | XMS_ITS | Encounter Summary ---
Author Organization [employer] Address [address] [facility] 7t [place] [address] Care Team Providers Care Bagger Meat Name Role Phone Carla Hart MD Primary Care Provider [phone] Reason for Visit * Reason Onset Date Comments Nurse Triage 09/06/2024 Encounter Details Date Type Department Care Team ([facility] Contact Info) Description 09/06/2024 Telephone C [facility] [address] [place], [place] [phone] Carla Hart MD [address] [place] [address] Nurse Triage Social History Tobacco Use Types [...] Triage call returned to patient with BLS [id number]. Patient reports concerns of fatigue and lethargy.Patient reports she went to her country [facility] and was identified to have issues with her BP and heart as well as parasites. Patient was prescribed Aracure .16 and Betauno 2.5mg daily.Patient with fatigue and BP 92/60 this morning. Reports fluid intake is good. No dizziness or fainting. Did not take pills today as she feltunwell yesterday. Takes only atorvastatin as prescribed by [...] documented in this encounter Plan of Treatment Upcoming Encounters Date Type Department Care Team (Late st Contact Info) Description 10/25/2024 1:00 PM EDT Clinical Support [facility]S [address] [place] [address] documented as of this encounter Visit Diagnoses Not on filedocumented in this encounter Additional Health Concerns Assessment Noted Time PHQ-9 Depression Total Score: 2 09/11/19 24 10:02 AM EST documented as of this encounter Care Teams Bagger Meat Relationship Specialty Start Date End Date Carla Hart MD [address] [place] [address] PCP - General Family Medicine 07/06/18 documented as of this encounter
--- OUTSIDE RECORDS SUMMARY | 2024-10-06 12:33 | XMS_ITS | Encounter Summary ---
Author Organization [employer] Address 75 [facility] 7t [place] [address] Care Team Providers Care Lieutenant Ballistics Name Role Phone Carla Hart MD Primary Care Provider [phone] Encounter Details Date Type Department Care Team ([facility] Contact Info) Description 08/13/2022 Telephone [facility] [address] [place], [place] [phone] Carla Hart MD [address] [place], [place] [phone] Social History Tobacco Use Types Packs/Day Years [...] as of this encounter Plan of Treatment Upcoming Encounters Date Type Department Care Team (Late Contact Info) Description 10/25/2024 1:00 PM EDT Clinical Support [facility] [address] [place], [place] [phone] documented as of this encounter Visit Diagnoses Not on filedocumented in this encounter Additional Health Concerns Assessment Noted Time PHQ-9 Depression Total Score: 5 08/12/19 23 11:47 AM EST documented as of this encounter Care Teams Lieutenant Ballistics Relationship Specialty Start Date End Date Carla Hart MD [address] [place] [address] PCP - General Family Medicine 07/06/18 documented as of this encounter
--- OUTSIDE RECORDS SUMMARY | 2024-10-06 12:33 | XMS_ITS | Encounter Summary ---
Author Organization [employer] Address [address] [facility] 7t [place] [address] Care Team Providers Care Associate Research Scientist Name Role Phone Carla Hart MD Primary Care Provider [phone] Reason for Visit * Reason Onset Date Comments callback requested 06/06/2024 Encounter Details Date Type Department Care Team ([facility] st Contact Info) Description 06/06/2024 Telephone [facility] [address] [place] [address] Carla Hart MD [address] [place] [phone] callback requested Social History Tobacco Use Types [...] due to knee pain constantly. Callback number [phone] documented in this encounter Plan of Treatment Upcoming Encounters Date Type Department Care Team (Late st Contact Info) Description 10/25/2024 1:00 PM EDT Clinical Support [facility] [address] [place] [address] documented as of this encounter Visit Diagnoses Not on filedocumented in this encounter Additional Health Concerns Assessment Noted Time PHQ-9 Depression Total Score: 2 09/11/19 24 10:02 AM EST documented as of this encounter Care Teams Associate Research Scientist Relationship Specialty Start Date End Date Carla Hart MD 505 [place] [address] PCP - General Family Medicine 07/06/18 documented as of this encounter
--- OUTSIDE RECORDS SUMMARY | 2024-10-06 12:33 | XMS_ITS | Clinical Summary ---
Author Organization [employer] Address [address] [facility] 7t [place] [address] Care Team Providers Care Attendant Honor Bar Name Role Phone Carla Hart MD Primary Care Provider Allergies No known active allergies Medications polyethylene glycol, PEG, 3350 (Glycolax) 17 GM/SCOOP powder PLEASE SEE ATTACHED FOR DETAILED DIRECTIONS 01/25/20 22 Active naproxen (Naprosyn) 500 MG tabletIndicati ons:Postmenopa usal osteoporosis,P ain in joint of right shoulder TAKE 1 TABLET BY MOUTH TWICE A DAY NEEDED FOR PAIN FOR 10 DAYS 60 tablet 5 08/27/19 24 Active atorvastatin (Lipitor) 40 MG tablet Take 1 tab orally qhs 90 tablet 1 03/22/20 24 Active cholecalcifero l VITAMIN D (Vitamin D-3) 50 MCG (1999) capsule Take 1 capsule (50 mcg) by mouth Once per day. 30 capsule 11 03/22/20 24 Active acetaminophen (Tylenol) 500 MG tablet Take 1 tab orally every 6 hours prn pain 30 tablet 03/22/20 24 Active gabapentin (Neurontin) 300 MG capsule TAKE 1 CAPSULE BY MOUTH 2 TIMES A DAY NEEDED FOR PAIN 04/08/20 24 Active ketorolac (Acular) 0.5 % ophthalmic solution 05/09/20 24 Active Diclofenac Sodium 1 % gelIndications :Postmenopausa l osteoporosis,P ain in joint of right shoulder APPLY TO AFFECTED AREA TOPICALLY 3 TIMES A DAY NEEDED FOR PAIN 100 g 3 09/13/19 25 Active pantoprazole (ProtoNix) 40 MG EC tablet TAKE 1 TABLET BY MOUTH EVERY DAY IN THE MORNING 90 tablet 1 09/17/19 25 Active Multiple Vitamin (Daily-Mitch Multivitamin) tablet TAKE 1 TABLET BY MOUTH EVERY DAY ONE DOSE 90 tablet 3 09/19/19 25 Active bisoprolol (Zebeta) 5 MG tablet Take 1 tablet (5 mg) by mouth Once per day. 90 tablet 1 09/28/19 25 026 Active Multiple Vitamin (Daily-Mitch Multivitamin) tablet TAKE 1 TABLET BY MOUTH EVERY DAY ONE DOSE 90 tablet 3 09/11/19 24 025 Discontinued pantoprazole (ProtoNix) 40 MG EC tablet Take 1 tablet (40 mg) by mouth in the morning. 90 tablet 1 09/11/19 24 025 Discontinued Diclofenac Sodium 1 % gelIndications :Postmenopausa l osteoporosis,P ain in joint of right shoulder APPLY topically tid prn pain 100 g 3 03/22/20 24 025 Discontinued Active Problems Problem Noted Date Diagnosed Date Elevated BP without diagnosis of hypertension Acute bilateral low back pain without sciatica [...] Encounters Date Type Department Care Team Description 09/27/2024 11:15 AM EDT Office Visit [facility] [address] [place] [address] Carla aHrt MD Chronic superficial gastritis without bleeding (Primary Dx); Pain of both shoulder joints; Elevated BP without diagnosis of hypertension 09/27/2024 Travel 09/26/2024 Telephone [facility] [address] [place] [address] Carla Hart MD Chart Prep 09/17/2024 Refill [facility] [address] [place] [address] Carla Hart MD 09/16/2024 Refill [facility] [address] [facility] [place] [address] Carla Hart MD 09/13/2024 Telephone [facility] [address] [place] [address] Carla Hart MD Appointment Request 09/10/2024 Refill [facility] 505 [facility] [place] [address] Carla Hart MD Postmenopausal osteoporosis; Pain in joint of right shoulder 09/06/2024 Telephone [facility] 505 [facility] [place] [address] Carla Hart MD Nurse Triage 08/30/2024 Orders Only [facility] External Provider, [facility] from Last 3 Months Immunizations Name [...] Sign Reading Time Taken Comments Blood Pressure 101/61 09/27/2024 11:04 AM EDT Pulse 70 09/27/2024 11:04 AM EDT Temperature 36.4 ??C (97.6 ??F) 09/27/2024 11:04 AM E DT Respiratory Rate 20 09/27/2024 11:04 AM EDT Oxygen Saturation 97% 09/27/2024 11:04 AM EDT Inhaled Oxygen Concentration - - Weight 74.4 kg (164 lb) 09/27/2024 11:04 AM EDT Height 149.2 cm (4' 10.75 ) 09/27/2024 11:04 AM EDT Body Mass Index 33.41 09/27/2024 11:04 AM EDT Plan of Treatment Upcoming Encounters Date Type Department Care Team (Late st Contact Info) Description 10/25/2024 1:00 PM EDT Clinical Support [facility] PEDS [address] [place] [address] Health Maintenance Due Date Last Done Comments CT Colonography 1955 Dental X-Ray: Bitewings 1955 FIT DNA/Cologuard 1955 FIT 1955 FOBT 1955 Sigmoidoscopy 1955 Alcohol/Substance Use Screening 1967 Hepatitis C Screening 1973 Zoster Vaccines (3 of 3) 11/19/2021 09/24/2021, 03/2016 Pneumococcal Vaccine: 50+ Years (2 of 2 - PPSV23) 09/24/2022 09/24/2021 Dental Oral Exam 05/28/2023 11/24/2022 Dental Prophylaxis 06/01/2023 11/28/2022 COVID-19 Vaccine ( season) 2024 04/23/2021, 10/15/2020, 09/17/2020 Depression Screening 09/10/2024 09/11/2023, 09/11/19 24 SDOH Screening 09/10/2024 09/11/2023 Mammogram 09/07/2025 09/07/2024, 02/2024, 08/07/2022, Additional history exists Tobacco Screening 09/27/2025 09/27/2024 Dental X-Ray: Full Mouth 11/25/2025 11/24/2022 Lipid [...] Procedure Name Priority Date/Time Associated Diagnosis Comments BI MAMMOGRAM SCREENING TOMOSYNTHESIS BILATERAL Routine 09/07/2024 1:45 PM EST MR KNEE WO CONTRAST RIGHT Routine 08/30/2024 1:36 PM EST LIPID PANEL, STANDARD Routine 05/13/2024 7:57 AM EST Postmenopausal osteoporosis Pain in joint of right shoulder Pure hypercholesterolemia PROPHYLAXIS - ADULT Routine 11/28/2022 9 :00 [...] Recently Relevant to Health Maintenance Results * BI Mammogram Screening Tomosynthesis Bilateral (09/07/2024 1:45 PM EST) Anatomical Region Laterality Modality Breast Bilateral Mammography 09/07/2024 1:45 PM EST Narrative 09/16/2024 5:07 PM EDT ? [facility] ? [address] ?[place] [address] ? Mammography Report ? Signed ? Patient: Keaton,Celeste ?MR#: [id number] ? : 1955 ?Acct:[id number] ? Age/Sex: 69 / F ?ADM Date: 03/05/25 ? Loc: HO.MAMMO ? Attending Dr: Carla Hart MD ? Ordering Physician: Carla Hart MD ?Results: 1Ne ?? gative ? Date of Service: 09/07/24 ?Follow Up: 1 Year From Orig ?? inal Mammogram ? Procedure(s): MM tomosynthesis screening BI ?? Accession Number(s): [id number] ? cc: Carla Hart MD ? EXAMINATION: ?? MM SCREENING DIGITAL BREAST TOMOSYNTHESIS, BILATERAL ? CLINICAL INFORMATION: ? Screening. Asymptomatic. ? COMPARISON: ?? Mammography: Comparison is made with available priors ? TECHNIQUE: ?? Digital breast mammography with tomosynthesis is performed in both the ?? craniocaudal and mediolateral oblique views along with computer-aided ?? detection (CAD). ? FINDINGS: ?? The breasts are almost [...] due date for their next mammogram. ? Electronically signed by: ??Noelle Gonzales DO ??09/16/2024 05:04 PM EDT ?? RP ? Dictated By: ?Noelle Gonzales DO ? Signed By: ?<Electronically signed by Noelle Gonzales, DO in OV> ? 09/16/24 1704 ? DD/ 1345 ? TD/TT: 09/07/24 1403 ? Java User Interface Developer: ? Procedure Note Donotuseinterpreter, Image - [facility]/16/20[facility] [address] [place] [address] Mammography Report Signed Patient: Kash Pugh#: [id number] : 5Acct:[id number] Age/Sex: 69 / FADM Date: 09/07/24 Loc: HO.MAMMO Attending Dr: Carla Hart MD Ordering Physician: Carla Hart MDResults: 1Ne gative Date of Service: 09/07/24Follow Up: 1 Year From Orig inal Mammogram Procedure(s): MM tomosynthesis screening BI Accession Number(s): [id number] cc: Carla Hart MD EXAMINATION: MM SCREENING DIGITAL BREAST TOMOSYNTHESIS, BILATERAL CLINICAL INFORMATION: Screening. Asymptomatic. COMPARISON: Mammography: Comparison is made with available priors TECHNIQUE: Digital breast mammography with tomosynthesis is performed in both the craniocaudal and mediolateral oblique views along with computer-aided detection (CAD). FINDINGS: The breasts are almost entirely fatty [...] target due date for their next mammogram. Electronically signed by: Noelle Gonzales DO 09/16/2024 05:04 PM EDT RP Dictated By: Noelle Gonzales DO Signed By: <Electronically signed by Noelle Gonzales DO in OV> 09/16/24 1704 DD/ 1345 TD/TT: 09/07/24 1403 Java User Interface Developer: us Carla Hart MD IMG BI PROCEDURES Final Resul t * MR Knee w/o Contrast Right (08/30/2024 1:36 PM EST) Anatomical Region Laterality Modality Magnetic Resonan ce 08/30/2024 1:36 PM EST Narrative 08/30/2024 1:37 PM EST ? [facility] ?[address] ?[place] [address] ? Magnetic Resonance Report ? Signed ? Patient: Keaton,Celeste ?MR#: [id number] ? : 1955 ?Acct:[id number] ? Age/Sex: 69 / F ?ADM Date: 08/30/24 ? Loc: HO.MRI ? Attending Dr: Jeremiah Eldridge MD ? Ordering Physician: Jeremiah Eldridge MD ?? Date of Service: 08/30/24 ?? Procedure(s): MR knee RT wo con ?? Accession Number(s): [id number] ? cc: Carla Hart MD; Jeremiah Eldridge MD ? CLINICAL HISTORY: S83.241A - Other tear of medial meniscus, current [...] 08/30/24 1337 ? DD/ 1336 ? TD/TT: 08/30/24 1336 ? Java User Interface Developer: ? Procedure Note Varinder, Image - 08/30/2024 [place] [address] Magnetic Resonance Report Signed Patient: Kash Pugh#: [id number] : 5Acct:[id number] Age/Sex: 69 / FADM Date: 08/30/24 Loc: HO.MRI Attending Dr: Jeremiah Eldridge MD Ordering Physician: Jeremiah Eldridge MD Date of Service: 08/30/24 Procedure(s): MR knee RT wo con Accession Number(s): [id number] cc: Carla Hart MD; Jeremiah Eldridge MD [...] 08/30/24 1337 DD/ 1336 TD/TT: 08/30/24 1336 Java User Interface Developer: [facility] External Provider IMG MRI PROCEDURES Final Result * (ABNORMAL) Lipid Panel, Standard (05/13/2024 7:57 AM EST) Triglycerides 202(H) <150 mg/dL [facility] Comment:Desirable Triglyceri de: less than 150 mg/dLBorderline High Triglyceride 150-199 mg/dLHigh Triglyceride: 200-499 mg/dLVery High Triglyceride: greater than or equal to 5OO mg/dL Cholesterol 211(H) <200 mg/dL [facility] Comment:Desirable Cholestero l: less than 200 mg/dLBorderline High Cholesterol: 200-239 mg/dLHigh Cholesterol: greater than 239 mg/dL LDL Cholesterol Calculated 133(H) <100 mg/dL [facility] Comment:Desirable LDL: less than 100 mg/dLNear Optimal/Above Optimal LDL: 110- 129 mg/dLBorderline High LDL: 130-159 mg/dLHigh LDL: 160-189 mg/dLVery High LDL: greater than or equal to 190 mg/dL HDL Cholesterol 38(L) >40 mg/dL [facility] Comment:Desirable HDL: great er than 40 mg/dL Note: This HDL assay may give artificially low results in patients with liver disease. Blood Venous blood specimen / Unknown 05/13/2024 7:57 AM EST 05/13/2024 8:02 AM EST Carla Hart MD LAB BLOOD ORDERABLES Final Re sult [facility] [address] [place] [address] [phone] * Colonoscopy (06/04/2022) Anatomical Region Laterality Modality Endoscopy Carla Hart MD ENDOSCOPY PROCEDURE ORDERABLE S Final Result from Last 3 Months or Most Recently Relevant to Health Maintenance Insurance [facility] - NDO DENTAL - [facility] Care Teams Attendant Honor Bar Relationship Specialty Start Date End Date Carla Hart MD [address] [place] [address] [place] [address] PCP - General Family Medicine 07/06/18
--- OUTSIDE RECORDS SUMMARY | 2024-10-06 12:33 | XMS_ITS | Encounter Summary ---
Author Organization [employer] Address [address] [facility] 7t [place] [address] Care Team Providers Care Space Scheduler Name Role Phone Carla Hart MD Primary Care Provider [phone] Encounter Details Date Type Department Care Team (Latest Contact Info) Description 08/13/2022 Orders Only [facility] [address] [place], [place] [phone] Carla Hart MD [address] [place], [place] [phone] Benign essential hypertension (Primary Dx); Pain of [...] Upcoming Encounters Date Type Department Care Team ( st Contact Info) Description 10/25/2024 1:00 PM EDT Clinical Support [facility] MED & PEDS [address] [place] [address] Scheduled Orders Name Type Priority Associated Diagnoses [...] documented as of this encounter Care Teams Space Scheduler Relationship Specialty Start Date End Date Carla Hart MD [address] [place] [address] PCP - General Family Medicine 07/06/18 documented as of this encounter
--- OUTSIDE RECORDS SUMMARY | 2024-10-06 12:33 | XMS_ITS | Encounter Summary ---
Author Organization [employer] Address [address] [facility] 7t [place] [address] Care Team Providers Care Rn L And D Name Role Phone Carla Hart MD Primary Care Provider [phone] Reason for Visit * Reason Onset Date Comments Pre op 04/28/2024 Encounter Details Date Type Department Care Team ([facility] Contact Info) Description 04/28/2024 Telephone [facility] MED & PEDS [address] [place], [place] [phone] Carla Hart MD [address] [place] [address] Pre op Social History Tobacco Use Types [...] needed: No EKG: No Surgeon's name: Paulo Garces Facility name: [facility] Surgeon's office number: [phone] Surgeon's office fax number: [phone] Contact name (person you spoke with): Noelle Last office note from surgeon requested: No Send Message to Vivian Coronel and Isaak Blanton documented in this encounter Plan of Treatment Upcoming Encounters Date Type Department Care Team ([facility] st Contact Info) Description 10/25/2024 1:00 PM EDT Clinical Support [facility] [address] [place] [address] documented as of this encounter Visit Diagnoses Not on filedocumented in this encounter Additional Health Concerns Assessment Noted Time PHQ-9 Depression Total Score: 2 09/11/19 10:02 AM EST documented as of this encounter Care Teams Rn L And D Relationship Specialty Start Date End Date Begolli, Carla, MD [address] [place] [address] PCP - General Family Medicine 07/06/18 documented as of this encounter
== END 2024-10-06 11:55 | disposition home or self-care (01) ==
LOC: HO.HOS 11:12
PROVIDERS: PCP Pediatrics; Visit Provider Orthopaedic Surgery
DX: S83.241A Other tear of medial meniscus, current injury, right knee, initial encounter (principal)
CPT/HCPCS: 99214; G2211

== ENCOUNTER → 2024-10-06 11:11 | Outpatient (BNVA) | payer OTHER, SELFPAY | PROVIDERS: PCP Pediatrics; Visit Provider Orthopaedic Surgery | DX: S83.241A Other tear of medial meniscus, current injury, right knee, initial encounter (principal); X58.XXXA Exposure to other specified factors, initial encounter; Y93.9 Activity, unspecified; Y92.9 Unspecified place or not applicable; Y99.9 Unspecified external cause status | CPT/HCPCS: 99212 ==

== ENCOUNTER 2025-01-04 07:48 | Outpatient (AMB) | payer OTHER, SELFPAY ==
--- NOTE | 2025-01-04 07:57 | MHC.OFFVIS ---
Vital Signs 01/04/25 08:02 Height 5 ft Weight 168 lb BMI 32.8 BP 120/58 L Blood Pressure Location Lt brachial Position Sitting Pulse 75 Pulse Oximetry (%) 96 Oxygen Delivery Method Room Air Intake Visit Reasons: chronic abdominal pain/Benson pt Intake Note: Patient complex follow up for abdominal pain./Benson pt santos was 2023. Patient cc: abdominal pain/right middle quadrant with bloating, and acid reflux with burning sensation at night time. Patient have an Endoscopy in 07/2024 at [facility]. Quality Audit Representative Required: Yes Quality Audit Representative Name: [facility] [place] Interpeter Accompanied by: Self / Same As Patient Allergies No Known Allergies Allergy (Verified 01/04/25 07:55) Medication List - Last Reconciled 01/04/25 by Magdalene North CNP atorvastatin 40 mg PO BEDTIME bisoprolol fumarate 5 mg PO DAILY calcium carbonate 600 mg PO BID cholecalciferol (vitamin D3) 50 mcg PO Q12H gabapentin 300 mg PO BID PRN 30 days lidocaine 5% 1 patch topical DAILY lidocaine 5% (Lidoderm) 1 patch topical DAILY multivitamin with folic acid 400 mcg (Daily-Mitch (with folic acid)) tabs PO sucralfate (Carafate) 10 mL PO QIDACHS PRN 14 days HPI HPI chronic abdominal pain/Kelley pt: Details: Patient is a [place]-speaking 69-year-old female with PMH of hyperlipidemia and GERD . Last visit with Dr. Benson 04/08/2024 for follow up on GERD. Celeste presents for follow-up after an upper endoscopy performed in the [facility] due to severe abdominal pain. She reports ongoing daily symptoms of acid reflux, primarily a burning sensation in the left side of her abdomen that worsens at night and disturbs her sleep. She experienced a severe abdominal pain episode on July 06, which prompted her to seek care in the [facility]. She underwent an upper endoscopy there, which reportedly showed the presence of H. pylori bacteria. She completed treatment for H. pylori in July or early August, but has not yet had follow-up testing to confirm eradication. Celeste describes her current symptoms as a constant, bothersome feeling in her left abdomen that intensifies at night. She reports avoiding coffee due to symptom exacerbation. She denies any regurgitation, trouble swallowing, nausea, or vomiting. Her weight has remained stable. She reports normal bowel movements without blood in her stools and normal urination. The patient admits to inconsistent use of her prescribed pantoprazole. She has been using xpyx-ham-ekgamje remedies such as Tums and a liquid antacid suspension. She also drinks anise tea at night for relaxation. Social hx: - Recently retired; previously worked in [employer] business for about 10 years - Drinks coffee; trying to minimize coffee intake - Drinks tea, including anise tea at night - family hx as below -tolerated anesthesia in the past without difficulty. [facility] Medical History (Updated 01/04/25 @ 21:56 by Magdalene North CNP) Chronic GERD Elevated cholesterol History of COVID-19 GERD (gastroesophageal reflux disease) Sacroiliac joint dysfunction Lumbar spondylosis Lumbar radiculopathy Surgical History (Updated 01/04/25 @ 08:20 by Alina Lewis) History of esophagogastroduodenoscopy (EGD) H/O colonoscopy History of surgery on arm Social History Household Members: Spouse Alcohol intake: current Alcohol intake frequency: does not drink Patient Tobacco Use Status: Never used Tobacco Review of Systems Const Reports as per HPI ENT Reports as per HPI Card Reports as per HPI Resp Reports as per HPI GI Reports as per HPI Reports as per HPI Physical Exam Vital Signs: Last Vital Signs Pulse 75 01/04/25 08:02 BP 120/58 L 01/04/25 08:02 Pulse Ox 96 01/04/25 08:02 Oxygen Delivery Method Room Air 01/04/25 08:02 BMI result Body Mass Index 32.8 Const General: healthy appearing, no acute distress and well developed Nutritional Appearance: well nourished Orientation/consciousness: patient oriented x3 HEENT Head: Yes normal to inspection, Yes normocephalic and Yes atraumatic Face and sinus: Yes normal facial exam Eyes General: appearance normal, both eyes and all related structures Neck Neck: Yes normal visual inspection Resp Effort & Inspection: normal respiratory effort, able to speak in complete sentences, no tracheal deviation and symmetric chest movement Auscultation: clear to auscultation bilaterally Cardio Jugular venous distension: no JVD Rate: regular rate Rhythm: regular rhythm Heart sounds: S1 normal heart sound present, S2 normal heart sound present, no gallops and no murmurs GI Inspection: Yes normal to inspection, No distended, Yes obesity and Yes striae Palpation (GI): Soft to palpation, not firm, nontender and No hepatosplenomegaly present Auscultation: normoactive bowel sounds Neuro General: patient oriented x3 Gait exam (Neuro): Normal gait present Psych Appearance: grossly normal Mental Status: mental status grossly normal Speech and movement: Normal speech and movement present Affect: normal affect Attitude: cooperative Thought process: Normal thought process present Thought content: Normal thought content present Insight: Good insight present (Psych) Judgement: Good judgement present (Psych) Results Reviewed Results Reviewed: Operative Note Date of Service: 06/04/22 Narrative: Operative Information Procedure Description: Colonoscopy Indication: screening COLONOSCOPY Colonoscopy Procedure: The patient was placed in the left lateral decubitis position and pre-procedure medications were administered. After a digital rectal examination of the ano-rectum, the video colonoscope was inserted into the rectum and advanced through the colon to the cecum/TI. The colonoscope was slowly withdrawn in a retrograde panoramic fashion and the colon mucosa was carefully examined including a retroflexed view of the rectum. Findings and interventions are described below. Procedure Difficulty: easy Findings: Terminal Ileum-normal Cecum:normal Ascending Colon: 5-7 mm sessile polyp removed with cold forceps Transverse Colon -normal Descending Colon:normal Sigmoid Colon: mild diverticulosis Rectum: Retroflexion with small internal hemorrhoids, grade I Anorectum - normal Colon preparation: [place] Bowel Preparation Scale Right colon; 2 Transverse colon: 2 Left colon; 2 Impression and Post Procedure Diagnosis: polyp internal hemorrhoids diverticular disease Plan: High fiber diet leaflet Avoid straining at stool, epsom salts and sitz bath, anusol supps or cream Repeat Colonoscopy in 5 years if adenomatous polyp, 10 yrs if benign or earlier if clinically indicated PATHOLOGY: Collected: 06/04/22 Location: [facility] Received: 06/04/22 Diagnosis Colon, ascending, polypectomy: Colonic mucosa with mild surface hyperplastic changes; multiple additional levels examined. 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 Code(s): K21.9 - Gastro-esophageal reflux disease without esophagitis Category: Medical Plan: GERD - Ongoing burning sensation in left epigastric region despite pantoprazole. Recent endoscopy showed esophagitis and erosive gastropathy. H. pylori treated but follow-up testing incomplete. - Discontinue pantoprazole for 2 weeks in preparation for H. pylori testing. - Start sucralfate suspension: first dose morning on empty stomach, wait 2 hours before other medications, second dose at bedtime 2 hours after nighttime medications. - Order fasting comprehensive metabolic panel, complete blood count, and H. pylori stool test. - Lifestyle modifications: avoid coffee, spicy foods, acidic foods, and fatty foods. Minimize tea consumption, especially at night. Stay hydrated with water. Plan follow up in 4 weeks or sooner as needed Time: I spent a total of 50 minutes on the date of encounter which includes: Preparing to see the patient (reviewed previous documentation, test results and medical history) Performing a medically appropriate exam and/or evaluation Ordering medications, tests, and procedures Documenting clinical information in the health record Orders: Orders Complete Blood Count Auto Diff Today K21.9 - Gastro-esophageal reflux disease without esophagitis Comprehensive [place]. Panel Fast Today K21.9 - Gastro-esophageal reflux disease without esophagitis Lipase Today K21.9 - Gastro-esophageal reflux disease without esophagitis H Pylori Breath Test Today Medications: Changed From sucralfate (Carafate) 10 mL PO QIDACHS 14 days PRN 400 mL 0RF dyspepsia To sucralfate (Carafate) 10 mL PO BID 400 mL 0RF dyspepsia 14 days Coding Level of Care Code Established Pt Est Pt Level 5 (22053) Patient Type Established Diagnoses Chronic GERD K21.9
[2025-01-04 08:02] VITALS: BP 120/58; PULSE 75; O2SAT 96; BMI 32.8
== END 2025-01-04 08:54 | disposition home or self-care (01) ==
LOC: HO.HGI 07:49
PROVIDERS: PCP Pediatrics; Visit Provider Nurse Practitioner Family
DX: K21.9 Gastro-esophageal reflux disease without esophagitis (principal)
CPT/HCPCS: 99215

== ENCOUNTER 2025-01-04 07:48 | Outpatient (REF) | payer OTHER, SELFPAY ==
[2025-01-04 09:23] LABS: MANUAL DIFF FLAG NO
[2025-01-04 09:42] LABS: Hematocrit 40.6 % (37.0-47.0); Hemoglobin 13.6 g/dl (12.0-16.0); Imm Gran Abs Auto 0.01 X10*3/uL (0.00-0.03); Imm Gran Pct Auto 0.2 % (0.0-0.4); Lymphocytes Absolute Auto 2.5 X10*3/uL (1.2-4.9); Mean Corpuscular HGB Conc 33.5 g/dl (31.0-35.0); Mean Corpuscular Hemoglobin 30.2 pg (27.0-33.0); Mean Corpuscular Volume 90.0 fL (80.0-98.0); NRBC Abs Auto 0.000 X10*3/uL (0.0-0.012); NRBC Pct Auto 0.0 /100WBC (0.0-0.2); Platelet Count 237 X10*3/uL (160-400); Red Blood Count 4.51 X10*6/uL (4.20-5.50); White Blood Count 5.9 X10*3/uL (4.8-10.8)
[2025-01-04 10:03] LABS: Alanine Aminotransferase 26 U/L (0-31); Albumin Level 4.3 g/dL (3.5-5.0); Alkaline Phosphatase 77 U/L (39-117); Anion Gap 11 (12-20); Aspartate Amino Transferase 28 U/L (5-31); Blood Urea Nitrogen 7 mg/dL (9-16); Calcium 9.4 mg/dL (8.4-10.2); Carbon Dioxide 30 mmol/L (22-29); Chloride 107 mmol/L (96-108); Estimated Glomerular Filt Rate > 60; Lipase 34 U/L (8-78); Potassium 4.5 mmol/L (3.3-5.1); Sodium 143 mmol/L (135-145); Total Protein 7.2 g/dL (6.5-8.0)
== END 2025-01-04 07:49 | disposition home or self-care (01) ==
LOC: HO.LAB 07:48
PROVIDERS: PCP Pediatrics; Visit Provider Nurse Practitioner Family
DX: K21.9 Gastro-esophageal reflux disease without esophagitis (principal); R10.9 Unspecified abdominal pain; G89.29 Other chronic pain
CPT/HCPCS: 36415; 80053; 83690; 85025; 99212

== ENCOUNTER 2025-01-19 08:28 | Outpatient (REF) | payer OTHER, SELFPAY | END 2025-01-19 08:29 | disposition home or self-care (01) | LOC: HO.LNP 08:28 | PROVIDERS: PCP Pediatrics; Visit Provider Nurse Practitioner Family | DX: Z11.2 Encounter for screening for other bacterial diseases (principal) | CPT/HCPCS: 83013 ==

== ENCOUNTER 2025-02-28 15:11 | Outpatient (REF) | payer OTHER, SELFPAY ==
--- OUTSIDE RECORDS SUMMARY | 2025-02-28 14:15 | XMS_ITS | Encounter Summary ---
Author Organization [employer] Address [address] [place] [address] Care Team Providers Care Spinneret Person Name Role Phone Carla Hart MD Primary Care Provider [phone] Encounter Details Date Type Department Care Team ([facility] st Contact Info) Description 02/28/2025 2:15 PM EDT Office Visit [facility] [address], [place] [phone] Flower Gabriel MD [address] [place], [place] [phone] Pre-op evaluation (Primary Dx) Social History Tobacco Use Types Packs/Day Years [...] Answer Date Recorded Patient Health Questionnaire-9 Score 1 02/28/2025 Patient Health Questionnaire-9 Score 1 02/28/2025 Last PHQ-9: Questionnaire Data Not on file 0 02/28/2025 Housing Stability Answer Date Recorded What is your housing situation today? I have kayla levine 02/28/[address] you li ve. Do you have problems with any of the following? None of the above 02/28/2025 Food Insecurity Answer Date Recorded Within the past 12 months, y ou worried that your food would run out before you got money to buy more: Never True 02/28/2025 Within the past 12 months,th e food you bought just didn't last and you didn't have enough money to get more: Never True Transportation Answer Date Recorded In the past 12 months, has l ack of transportation kept you from medical appts, meetings, work or from getting things needed for daily living? No 02/28/2025 Utilities Answer Date Recorded In the past 12 months, has t he electric, gas, oil or water company threatened to shut off services in your home? No 02/28/2025 Depression Answer Date Recorded Patient Health Questionnaire-2 Score 0 02/28/2025 Internet Access Answer Date Recorded Internet Access Q1 Yes 02/28/2025 Internet Access Q2 Not on file 02/28/2025 Comments Unknown Sex and Gender Information Value Date Recorded Sex Assigned at Female 05/05/2022 10:15 AM EDT Legal Sex Female 10:15 AM EDT Gender Identity Female 05/05/2022 10:15 AM EDT Sexual Orientation Straight 05/05/2022 10 :15 AM EDT documented as of this encounter Last Filed Vital Signs Vital Sign Reading Time Taken Comments Blood Pressure 121/68 02/28/2025 2:34 PM EDT Pulse 62 02/28/2025 2:34 PM EDT Temperature 36.8 C (98.2 F) 02/28/2025 2:34 PM EDT Respiratory Rate 20 02/28/2025 2:34 PM EDT Oxygen Saturation 98% 02/28/2025 2:34 PM EDT Inhaled Oxygen Concentration - - Weight 76.7 kg (169 lb) 02/28/2025 2:34 PM EDT Height 149.2 cm (4' 10.75 ) 02/28/2025 2:34 PM E DT Body Mass Index 34.42 02/28/2025 2:34 PM EDT documented in this encounter Functional Status * Over the past 2 weeks, how often have you been bothered by any of the following problems? Question Answer Date of Assessment Author Patient Health Questionnaire-2 Score 0 02/04 2:36 PM EDT Joselyn Valenzuela MA * Little interest or pleasure in doing things Answer Date of Assessment Author Not at all 02/28/2025 2:36 PM EDT Mane Valenzuela MA * Feeling down, depressed, or hopeless Answer Date of Assessment Author Not at all 02/28/2025 2:36 PM EDT Mane Valenzuela MA * Trouble falling or staying asleep, or sleeping too much Answer Date of Assessment Author Not at all 02/28/2025 2:36 PM EDT Mane Valenzuela MA * Feeling tired or having little energy Answer Date of Assessment Author Not at all 02/28/2025 2:36 PM EDT Mane Valenzuela MA * Poor appetite or overeating Answer Date of Assessment Author Several days 02/28/2025 2:36 PM EDT Mane Valenzuela MA * Feeling bad about yourself - or that you are a failure or have let yourself or your family down Answer Date of Assessment Author Not at all 02/28/2025 2:36 PM EDT Mane Valenzuela MA * Trouble concentrating on things, such as reading the newspaper or watching television Answer Date of Assessment Author Not at all 02/28/2025 2:36 PM EDT Mane Valenzuela MA * Moving or speaking so slowly that other people could have noticed? Or the opposite - being so fidgety or restless that you have been moving around a lot more than usual. Answer Date of Assessment Author Not at all 02/28/2025 2:36 PM EDT Mane Valenzuela MA * Thoughts that you would be better off or hurting yourself in some way Answer Date of Assessment Author Not at all 02/28/2025 2:36 PM EDT Mane Valenzuela MA * Patient Health Questionnaire-9 Score Answer Date of Assessment Author 1 02/28/2025 2:36 PM EDT Mane Valenzuela MA * How difficult have these problems made it for you to do your work, take care of things at home, or get along with other people? Answer Date of Assessment Author Not difficult at all 02/28/2025 2:36 PM EDT Joselyn Holloway MA documented as of this encounter Plan of Treatment Scheduled Orders Name Type Priority Associated Diagnoses Orde r Schedule CBC auto differential Lab Routine Pre-op evaluation Expected: 02/28/2025 (Approximate), Expires: 02/28/2026 Comprehensive Metabolic Panel Lab Routine Pre-op evaluation Expected: 02/28/2025 (Approximate), Expires: 02/28/2026 Lipid Panel, Standard Lab Routine Pre-op evaluation Expected: 02/28/2025 (Approximate), Expires: 02/28/2026 TSH with Reflex to Free T4 Lab Routine Pre-op evaluation Expected: 02/28/2025 (Approximate), Expires: 02/28/2026 documented as of this encounter Procedures Procedure Name Priority Date/Time Associated Diagnosis Comments POCT RAPID COVID ANTIGEN Routine 02/28/2025 3:12 PM EDT Pre-op evaluation POCT INFLUENZA A Routine 02/28/2025 3:10 PM EDT Pre-op evaluation POCT INFLUENZA B Routine 02/28/2025 3:09 PM EDT Pre-op evaluation ECG 12-LEAD Routine 02/28/2025 3:03 PM EDT Pre-op evaluation documented in this encounter Results * POCT Rapid Covid-19 BinaxNOW (02/28/2025 3:12 PM EDT) Rapid COVID Ag Negative QC Media Lot # [id number] Lot# Expiration Date [id number] Comment:controls passed Swab 02/28/2025 3:12 PM EDT Flower Gabriel MD POINT OF CARE TEST ENTER/ED IT ORDERABLES Final Result * POCT Rapid Influenza A OSOM (02/28/2025 3:10 PM EDT) Rapid Influenza A Ag Negative Negative, Indeterminate QC Media Lot # [id number] Comment:controls passed Lot# Expiration Date [id number] Swab Nasopharyngeal structure / Unknown 02/28/2025 3:10 PM EDT Flower Gabriel MD POINT OF CARE TEST ENTER/ED IT ORDERABLES Final Result * POCT Rapid Influenza B OSOM (02/28/2025 3:09 PM EDT) Rapid Influenza B Ag Negative Negative, Indeterminate QC Media Lot # [id number] Lot# Expiration Date [id number] Comment:controls passed Swab 02/28/2025 3:09 PM EDT Flower Gabriel MD POINT OF CARE TEST ENTER/ED IT ORDERABLES Final Result * ECG 12 lead (02/28/2025 3:03 PM EDT) Narrative Flower Gabriel MD - 02/28/2025 3:03 PM EDT HR 59 bpm. [place] : 37 degrees. Sinus rhythm. No Sign of EDSON/LAE. No sign of hypertrophy. Intra-atrial conduction delay. No ST elevation or ST depression. Borderline EKG. No significant findings on the EKG> Flower Gabriel MD ECG ORDERABLES Final Resul t documented in this encounter Visit Diagnoses Diagnosis Pre-op evaluation- Primary documented in this encounter Additional Health Concerns Assessment Noted Time PHQ-9 Depression Total Score: 1 02/29/20 25 2:36 PM EDT documented as of this encounter Care Teams Spinneret Person Relationship Specialty Start Date End Date Carla Hart MD [address] [place] [id number] PCP - General Family Medicine 07/06/18 documented as of this encounter
--- OUTSIDE RECORDS SUMMARY | 2025-02-28 16:08 | XMS_ITS | Encounter Summary ---
Author Organization [employer] Address [address] [place] [address] Care Team Providers Care Technical Sales Support Specialist Name Role Phone Carla Hart MD Primary Care Provider [phone] Reason for Visit * Reason Onset Date Comments Med Refill 11/10/2024 Encounter Details Date Type Department Care Team ([facility] st Contact Info) Description 11/10/2024 Telephone [facility] MEDICINE [address] [place] [address] Carla Hart MD [address] [place] [address] [phone] Med Refill Social History Tobacco Use Types Packs/Day Years [...] encounter Miscellaneous Notes * Telephone Encounter - Luz Chadwick LPN - 11/10/2024 10:23 AM EDT Medication was sent to [facility][id number] on 11/09/24 #180 with 3 refills. * Telephone Encounter - Ambrocio Chi - 11/10/2024 10:21 AM EDT TC from pt requesting medication refill. Medications needing refill : calcium carbonate 1500 (600 Ca) MG tablet To be sent to: [facility]/pharmacy #[id number] - [address] documented in this encounter Plan of Treatment Not on file documented as of this encounter Visit Diagnoses Not on filedocumented in this encounter Additional Health Concerns Assessment Noted Time PHQ-9 Depression Total Score: 2 09/11/19 24 10:02 AM EST documented as of this encounter Care Teams Technical Sales Support Specialist Relationship Specialty Start Date End Date Carla Hart MD [address] [place] [phone] PCP - General Family Medicine 07/06/18 documented as of this encounter
--- OUTSIDE RECORDS SUMMARY | 2025-02-28 16:08 | XMS_ITS | Encounter Summary ---
Author Organization [employer] Address [address] [facility] [address] [place] [address] Care Team Providers Care Environmental Services Technician Name Role Phone Carla Hart MD Primary Care Provider [phone] Encounter Details Date Type Department Care Team ([facility] st Contact Info) Description 08/13/[address] [facility] MEDICINE [address] [place] [address] Carla Hart MD [address] [place], [place] [phone] Social History Tobacco Use Types Packs/Day Years [...] documented as of this encounter Care Teams Environmental Services Technician Relationship Specialty Start Date End Date Carla Hart MD [address] [place] [phone] PCP - General Family Medicine 07/06/18 documented as of this encounter
--- OUTSIDE RECORDS SUMMARY | 2025-02-28 16:08 | XMS_ITS | Encounter Summary ---
Author Organization [employer] Address [address] [facility] [address] [place] [address] Care Team Providers Care On Site Property Manager Name Role Phone Carla Hart MD Primary Care Provider Encounter Details Date Type Department Care Team (Latest Contact Info) Description 02/28/2025 Travel Social History Tobacco Use Types Packs/Day Years [...] your housing situation today? I have kayla sing 02/28/[address] you li [...] AM EDT documented as of this encounter Functional Status * Over the [...] Not at all 02/28/2025 2:36 PM EDT Yamil Valenzuela [place] * Moving or speaking so [...] documented as of this encounter Care Teams On Site Property Manager Relationship Specialty Start Date End Date Carla Hart MD [address] [place] [phone] PCP - General Family Medicine 07/06/18 documented as of this encounter
--- OUTSIDE RECORDS SUMMARY | 2025-02-28 16:08 | XMS_ITS | Clinical Summary ---
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 30 capsule 11 4 Active acetaminophen (Tylenol) 500 MG tablet Take 1 tab orally every 6 hours prn pain 30 tablet 4 Active gabapentin (Neurontin) 300 MG capsule TAKE 1 CAPSULE BY MOUTH 2 TIMES A DAY NEEDED FOR PAIN 4 Active ketorolac (Acular) 0.5 % ophthalmic solution 4 Active Diclofenac Sodium 1 % gelIndications :Postmenopausa l osteoporosis,P ain in joint of right shoulder APPLY TO AFFECTED AREA TOPICALLY 3 TIMES A DAY NEEDED FOR PAIN 100 g 3 5 Active pantoprazole (ProtoNix) 40 MG EC tablet TAKE 1 TABLET BY MOUTH EVERY DAY IN THE MORNING 90 tablet 1 5 Active Multiple Vitamin (Daily-Mitch Multivitamin) tablet TAKE 1 TABLET BY MOUTH EVERY DAY ONE DOSE 90 tablet 3 5 Active bisoprolol (Zebeta) 5 MG tablet Take 1 tablet (5 mg) by mouth Once per day. 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 180 tablet 3 5 Active atorvastatin (Lipitor) 40 MG tablet Take 1 tab orally qhs 90 tablet 1 5 Active polyethylene glycol, PEG, 3350 (Glycolax) 17 GM/SCOOP powder PLEASE SEE ATTACHED FOR DETAILED DIRECTIONS 2 02/29/20 25 Discontinu ed(Therapy completed) Active Problems Problem Noted Date Diagnosed Date [...] Encounters Date Type Department Care Team Description 02/28/2025 2:15 PM EDT Office Visit [facility] [address] [place] [address] Flower Gabriel MD Pre-op evaluation (Primary Dx) 02/28/2025 Travel 02/22/2025 Telephone [facility] [address] [place] [address] Carla Hart MD pre op 02/15/2025 3:30 PM EDT Office Visit [facility] [address] [place] [address] Carla Hart MD Atypical chest pain (Primary Dx); Benign essential hypertension; Pure hypercholesterolemia ; Family history of early CAD 02/15/2025 Travel 02/15/2025 Telephone [facility] [address] [place] [address] Carla Hart MD Transition Of Care (Tcm) 02/13/2025 Telephone [facility] [address] [place] [address] Carla Hart MD Appointment Request 01/20/2025 Results Follow-Up [facility] [address] [place] [address] Carla Hart MD Helicobacter pylori, Urea Breath Test 01/19/2025 Orders Only GENERIC EXTERNAL DATA DEPARTMENT Provider, Generic External Data 01/04/2025 Orders Only GENERIC EXTERNAL DATA DEPARTMENT Provider, Generic External Data from Last 3 Months Immunizations Immunization Administration Dates Next Due Influenza High-dose Quadrivalent [...] Mass Index 34.42 02/28/2025 2:34 PM EDT Plan of Treatment Health Maintenance Due Date Last Done Comments CT Colonography 1955 Dental X-Ray: Bitewings 1955 FIT DNA/Cologuard 1955 FIT 1955 FOBT 1955 Sigmoidoscopy 1955 Hepatitis C Screening 1973 Zoster Vaccines (3 of 3) 11/19/2021 09/24/2021, 03/2016 Pneumococcal Vaccine: 50+ Years (2 of 2 - PPSV23) 09/24/2022 09/24/2021 Dental Oral Exam 05/28/2023 11/24/2022 Dental Prophylaxis 06/01/2023 11/28/2022 COVID-19 Vaccine ( - season) 2024 04/23/2021, 10/15/2020, 09/17/2020 Influenza Vaccine (#1) 2025 , 04/18/2021, 06/11/2017, Additional history exists Mammogram 09/07/2025 09/07/2024, 02/2024, 08/07/2022, Additional history exists Dental X-Ray: Full Mouth 11/25/2025 11/24/2022 Tobacco Screening 02/15/2026 02/15/2025 Alcohol/Substance Use Screening 02/28/2026 02/28/2025 Depression Screening 02/28/2026 02/28/2025, 02/29/20 SDOH Screening 02/28/2026 02/28/2025 Lipid Panel 05/13/2029 05/13/2024, 08/07, 08/13/2022, Additional history exists RSV Patients and Patients Aged 60 years or older (1 - 1-dose 75+ series) 2030 DTaP/Tdap/Td Vaccines (2 - Td or Tdap) 09/25/2031 09/24/2021, 03/13/2009 Colonoscopy 06/04/2032 06/04/2022 Colorectal Cancer Screening 06/04/2032 HIB Vaccines Aged Out No longer eligi [...] patient's age to complete this topic Meningococcal B Vaccine Aged Out No l onger eligible based on patient's age to complete [...] Routine 02/28/2025 3:03 PM EDT Pre-op evaluation ECG 12-LEAD Routine 02/15/2025 4:57 PM EDT Atypical chest pain HELICOBACTER PYLORI, UREA BREATH TEST Routine 01/19/2025 8:55 AM EDT LIPASE Routine 01/04/2025 9:21 AM EDT COMPREHENSIVE METABOLIC PANEL, FASTING Routine 01/04/2025 9:21 AM EDT CBC WITH AUTO DIFFERENTIAL Routine 01/04/2025 9:21 AM EDT BI MAMMOGRAM SCREENING TOMOSYNTHESIS BILATERAL Routine 09/07/2024 1:45 PM EST LIPID PANEL, STANDARD Routine 05/13/2024 [...] Recently Relevant to Health Maintenance Results * POCT Rapid Covid-19 BinaxNOW (02/28/2025 3:12 PM EDT) [facility] Rapid COVID Ag Negative QC Media Lot # [id number] Lot# Expiration Date 7,026 Comment:controls passed Swab 02/28/2025 3:12 PM EDT Flower Gabriel MD POINT OF CARE TEST ENTER/ED IT ORDERABLES Final Result * POCT Rapid Influenza A OSOM (02/28/2025 3:10 PM EDT) [facility] Rapid Influenza A Ag Negative Negative, Indeterminate QC Media Lot # [id number] Comment:controls passed Lot# Expiration Date ,025 Swab Nasopharyngeal structure / Unknown 02/28/2025 3:10 PM EDT Flower Gabriel MD POINT OF CARE TEST ENTER/ED IT ORDERABLES Final Result * POCT Rapid Influenza B OSOM (02/28/2025 3:09 PM EDT) [facility] Rapid Influenza B Ag Negative Negative, Indeterminate QC Media Lot # [id number] Lot# Expiration Date ,025 Comment:controls passed Swab 02/28/2025 3:09 PM EDT Flower Gabriel MD POINT OF CARE TEST ENTER/ED IT ORDERABLES Final Result * ECG 12 lead (02/28/2025 3:03 PM EDT) Only the most recent of2 resultswithin the time period is included. Narrative Flower Gabriel MD - 02/28/2025 3:03 PM EDT HR 59 bpm. Disputanta : 37 degrees. Sinus rhythm. No Sign of EDSON/LAE. No sign of hypertrophy. Intra-atrial conduction delay. No ST elevation or ST depression. Borderline EKG. No significant findings on the EKG> us Flower Gabriel MD ECG ORDERABLES Final Resul t * Helicobacter pylori, Urea Breath Test (01/19/2025 8:55 AM EDT) H. pylori Breath Test Negative Negative [facility] Comment:Antimicrobials, prot on pump inhibitors and bismuthpreparations are known to suppress H. pylori. Ingestingthese medications within two weeks prior to performing thebreath test may produce negative test results. A positiveresult is still clinically valid. 01/19/2025 8:55 AM EDT 01/19/2025 1:16 PM EDT us Generic External Data Provider LAB BODY FLUIDS A ND STOOLS ORDERABLES Final Result [facility] [address] [place] [phone] * (ABNORMAL) Comprehensive Metabolic Panel, Fasting (01/04/2025 9:21 AM EDT) Sodium 143 135 - 145 mmol/L [facility] Potassium 4.5 3.3 - 5.1 mmol/L [facility] Chloride 107 96 - 108 mmol/L [facility] Carbon Dioxide 30(H) 22 - 29 mmol/L [facility] Anion Gap 11(L) 12 - 20 [facility] Urea Nitrogen (BUN) 7(L) 9 - 16 mg/dL [facility] Creatinine, Serum 0.65 0.5 - 1.4 mg/dL [facility] Estimated Glomerular Filt Rate >60 [facility] Comment:Chronic Kidney Disea se: Estimated GFR < 60 mL/min/1.11x8Lrygnn Kidney Disease: Estimated GFR < 15 mL/min/1.73m2 Glucose Fasting 98 60 - 99 mg/dL [facility] Calcium 9.4 8.4 - 10.2 mg/dL [facility] Bilirubin, Total 0.4 0.0 - 1.0 mg/dL [facility] Aspartate Amino Transferase 28 5 - 31 U/L [facility] Alanine Aminotransferase 26 0 - 31 U/L [facility] Total Protein 7.2 6.5 - 8.0 g/dL [facility] Albumin Level 4.3 3.5 - 5.0 g/dL [facility] Alkaline Phosphatase 77 39 - 117 U/L [facility] 01/04/2025 9:21 AM EDT 01/04/2025 9:21 AM EDT us Generic External Data Provider LAB BLOOD ORDERAB LES Final Result [facility] [address] [place] [phone] * (ABNORMAL) CBC auto differential (01/04/2025 9:21 AM EDT) White Blood Count 5.9 4.8 - 10.8 X10*3/uL [facility] Red Blood Count 4.51 4.20 - 5.50 X10*6/uL [facility] Hemoglobin 13.6 12.0 - 16.0 g/dl [facility] Hematocrit 40.6 37.0 - 47.0 % [facility] Mean Corpuscular Volume 90.0 80.0 - 98.0 fL [facility] Mean Corpuscular Hemoglobin 30.2 27.0 - 33.0 pg [facility] Mean Corpuscular HGB Conc 33.5 31.0 - 35.0 g/dl [facility] Red Cell Distribution Width 13.1 11.0 - 16.0 % [facility] Platelet Count 237 160 - 400 X10*3/uL [facility] Mean Platelet Volume 9.3(L) 9.4 - 12.3 fL [facility] Neutrophils Percent Auto 43.2(L) 45 - 73 % [facility] Imm Gran Pct Auto 0.2 0.0 - 0.4 % [facility] Lymphocytes Percent Auto 42.1(H) 20 - 40 % [facility] Monocytes Percent Auto 9.7 2 - 11 % [facility] Eosinophils Percent Auto 4.1(H) 0 - 4 % [facility] Basophils Percent Auto 0.7 0 - 2 % [facility] NRBC Pct Auto 0.0 0.0 - 0.2 /100WBC [facility] Neutrophils Absolute Auto 2.5 2.0 - 8.3 x10*3/uL [facility] Imm Gran Abs Auto 0.01 0.00 - 0.03 X10*3/uL [facility] Lymphocytes Absolute Auto 2.5 1.2 - 4.9 X10*3/uL [facility] Monocytes Absolute Auto 0.6 0.1 - 1.2 X10*3/uL [facility] Eosinophils Absolute Auto 0.2 0.0 - 0.4 X10*3/uL [facility] Basophils Absolute Auto 0.0 0.0 - 0.2 X10*3/uL [facility] NRBC Abs Auto 0.000 0.0 - 0.012 X10*3/uL [facility] 01/04/2025 9:21 AM EDT 01/04/2025 9:21 AM EDT us Generic External Data Provider LAB BLOOD ORDERAB LES Final Result Performing Organization Address City/[facility]/ZIP Co de Phone Number [facility] [address] [place] [phone] * Lipase (01/04/2025 9:21 AM EDT) Lipase 34 8 - 78 U/L [facility] 01/04/2025 9:21 AM EDT 01/04/2025 9:21 AM EDT us Generic External Data Provider LAB BLOOD ORDERAB LES Final Result Performing Organization Address City/[facility]/ZIP Co de Phone Number [facility] [address] [place] [phone] * BI Mammogram Screening Tomosynthesis Bilateral (09/07/2024 1:45 PM EST) Anatomical Region Laterality Modality Breast Bilateral Mammography 09/07/2024 1:45 PM EST Narrative 09/16/2024 5:07 PM EDT [facility]'[address] [place] [address] Mammography Report Signed Patient: Celeste Pugh MR#: [id number] : 1955 Acct:[id number] Age/Sex: 69 / F ADM Date: 09/07/24 Loc: HO.MAMMO Attending Dr: Carla Hart MD Ordering Physician: Carla Hart MD Results: 1Ne gative Date of Service: 09/07/24 Follow Up: 1 Year From Orig ina Mammogram Procedure(s): MM tomosynthesis screening BI Accession Number(s): [id number] cc: Carla Hart MD EXAMINATION: MM SCREENING [...] Noelle Gonzales DO 09/16/2024 05:04 PM EDT Dictated By: Noelle Gonzales DO Signed By: <Electronically signed by Noelle Gonzales DO in OV> 09/16/24 1704 DD/ 1345 TD/TT: 09/07/24 1403 Tractor Mechanic Apprentice: Procedure Note Donotuseinterpreter, Image - 09/16/2024 [facility] [address] [place], [place] [address] Mammography Report Signed Patient: Kash Pugh#: [id number] : 5Acct:[id number] Age/Sex: 69 / FADM Date: 09/07/24 Loc: HO.MAMMO Attending Dr: Carla Hart MD Ordering Physician: Carla Hart MDResults: 1Ne gative Date of Service: 09/07/24Follow Up: 1 Year From Orig ina Mammogram Procedure(s): MM tomosynthesis screening BI Accession Number(s): [id number] cc: Carla Hart MD EXAMINATION: MM SCREENING [...] Noelle Gonzales DO 09/16/2024 05:04 PM EDT Dictated By: Noelle Gonzales DO Signed By: <Electronically signed by Noelle Gonzales DO in OV> 09/16/24 1704 DD/ 1345 TD/TT: 09/07/24 1403 Tractor Mechanic Apprentice: Carla Hart MD IMG BI PROCEDURES Final Resul t * (ABNORMAL) Lipid Panel, Standard (05/13/2024 7:57 AM EST) Triglycerides 202(H) <150 mg/dL [facility] Comment:Desirable Triglyceri de: less than 150 mg/dLBorderline High Triglyceride 150-199 mg/dLHigh Triglyceride: 200-499 mg/dLVery High Triglyceride: greater than or equal to 5OO mg/dL Cholesterol 211(H) <200 mg/dL [facility] Comment:Desirable Cholestero l: less than 200 mg/dLBorderline High Cholesterol: 200-239 mg/dLHigh Cholesterol: greater than 239 mg/dL LDL Cholesterol Calculated 133(H) <100 mg/dL [facility] Comment:Desirable LDL: less than 100 mg/dLNear Optimal/Above Optimal LDL: 110- 129 mg/dLBorderline High LDL: 130-159 mg/dLHigh LDL: 160-189 mg/dLVery High LDL: greater than or equal to 190 mg/dL HDL Cholesterol 38(L) >40 mg/dL [facility] Comment:Desirable HDL: great er than 40 mg/dL Note: This HDL assay may give artificially low results in patients with liver disease. Blood Venous blood specimen / Unknown 05/13/2024 7:57 AM EST 05/13/2024 8:02 AM EST us Carla Hart MD LAB BLOOD ORDERABLES Final Re sult [facility] [address] [place], [place] [phone] * Colonoscopy (06/04/2022) Anatomical Region Laterality Modality Endoscopy us Carla Hart MD ENDOSCOPY PROCEDURE ORDERABLE S Final Result from Last 3 Months or Most Recently Relevant to Health Maintenance Insurance [employer] (O D-SNP) DENTAL [facility] Care Teams Tank Carpenter Relationship Specialty Start Date End Date Carla Hart MD [address] [place] [address] [place] [address] PCP - General Family Medicine 07/06/18
--- OUTSIDE RECORDS SUMMARY | 2025-02-28 16:08 | XMS_ITS | Encounter Summary ---
Author Organization [employer] Address [address] [address] Care Team Providers Care Freight Loading Supervisor Name Role Phone Carla Hart MD Primary Care Provider [phone] Reason for Visit * Reason Onset Date Comments pre op 02/22/2025 Encounter Details Date Type Department Care Team ([facility] st Contact Info) Description 02/22/2025 Telephone [facility] [address] [place], [place] [phone] Carla Hart MD [address] [place] [address] pre op Social History Tobacco Use Types Packs/Day [...] encounter Miscellaneous Notes * Telephone Encounter - Isaak Blanton - 02/23/2025 11:14 AM EDT Tc placed to edytagleason . Agreed to pre-op on 02/[address] Gabriel . Detailed vm left to pt /. * Telephone Encounter - Nneka Pisano - 02/22/2025 2:33 PM EDT Date of Surgery: 03/16 Surgical procedure being done: Upper eyelid surgery Type of anesthesia: MAC Lab needed: Yes EKG: Yes Surgeon's name: Vinnie Facility name: [facility] Surgeon's office number: [phone] ext [phone] Surgeon's office fax number: [phone] Contact name (person you spoke with): Aleisha Last office note from surgeon requested: No Send Message to Vivian Blanton documented in this encounter Plan of Treatment Not on file documented as of this encounter Visit Diagnoses Not on filedocumented in this encounter Additional Health Concerns Assessment Noted Time PHQ-9 Depression Total Score: 2 09/11/19 24 10:02 AM EST documented as of this encounter Care Teams Freight Loading Supervisor Relationship Specialty Start Date End Date Carla Hart MD [address] [place] [address] PCP - General Family Medicine 07/06/18 documented as of this encounter
--- OUTSIDE RECORDS SUMMARY | 2025-02-28 16:08 | XMS_ITS | Encounter Summary ---
Author Organization [employer] Address 75 [facility] [address] [place] [address] Care Team Providers Care Yarder Boss Name Role Phone Carla Hart MD Primary Care Provider [phone] Encounter Details Date Type Department Care Team (Latest Contact Info) Description 08/13/2022 Orders Only [facility] [address] [place] [address] Carla Hart MD [address] [place], [place] [phone] Benign essential hypertension (Primary Dx); Pain of [...] documented as of this encounter Care Teams Yarder Boss Relationship Specialty Start Date End Date Carla Hart MD [address] [place] [address] PCP - General Family Medicine 07/06/18 documented as of this encounter
--- OUTSIDE RECORDS SUMMARY | 2025-02-28 16:08 | XMS_ITS | Encounter Summary ---
Author Organization [employer] Address [address] [place] [address] Care Team Providers Care Computational Physicist Name Role Phone Carla Hart MD Primary Care Provider [phone] Reason for Visit * Reason Onset Date Comments Appointment Request 02/13/2025 Encounter Details Date Type Department Care Team ([facility] st Contact Info) Description 02/13/[address] [facility] [address] [place] [address] Carla Hart MD [address] [place] [phone] Appointment Request Social History Tobacco Use Types Packs/Day Years [...] encounter Miscellaneous Notes * Telephone Encounter - Gena Mills - 02/13/2025 12:28 PM EDT TC from patient requesting a follow-up appointment regarding heart palpitations. Patient declined triage. Patient has previously been evaluated by PCP for this condition. Contact pt at [phone] Need sheather documented in this encounter Plan of Treatment Not on file documented as of this encounter Visit Diagnoses Not on filedocumented in this encounter Additional Health Concerns Assessment Noted Time PHQ-9 Depression Total Score: 2 09/11/19 24 10:02 AM EST documented as of this encounter Care Teams Computational Physicist Relationship Specialty Start Date End Date Carla Hart MD [address] [place] [address] PCP - General Family Medicine 07/06/18 documented as of this encounter
--- OUTSIDE RECORDS SUMMARY | 2025-02-28 16:08 | XMS_ITS | Encounter Summary ---
Author Organization [employer] Address 75 [facility] 7t [place] [address] Care Team Providers Care Gas Tender Name Role Phone Carla Hart MD Primary Care Provider [phone] Encounter Details Date Type Department Care Team (Latest Contact Info) Description 01/20/2025 Results Follow-Up [facility] [address] [place], [place] [phone] Carla Hart MD [address] [place] [address] Helicobacter pylori, Urea Breath Test Social History Tobacco Use Types Packs/Day Years [...] documented as of this encounter Care Teams Gas Tender Relationship Specialty Start Date End Date Carla Hart MD [address] [place] [address] PCP - General Family Medicine 07/06/18 documented as of this encounter
--- OUTSIDE RECORDS SUMMARY | 2025-02-28 16:08 | XMS_ITS | Encounter Summary ---
Author Organization [employer] Address [address] [place] [address] Care Team Providers Care Rolling Chair Pusher Name Role Phone Carla Hart MD Primary Care Provider [phone] Reason for Visit * Reason Onset Date Comments callback requested 06/06/2024 Encounter Details Date Type Department Care Team ([facility] st Contact Info) Description 06/06/2024 Telephone [facility] [address] [place] [address] Carla Hart MD [address] [place] [address] [phone] callback requested Social History Tobacco Use Types [...] due to knee pain constantly. Callback number [phone] documented in this encounter Plan of Treatment Not on file documented as of this encounter Visit Diagnoses Not on filedocumented in this encounter Additional Health Concerns Assessment Noted Time PHQ-9 Depression Total Score: 2 09/11/19 24 10:02 AM EST documented as of this encounter Care Teams Rolling Chair Pusher Relationship Specialty Start Date End Date Carla Hart MD [address] [place] [phone] PCP - General Family Medicine 07/06/18 documented as of this encounter
--- OUTSIDE RECORDS SUMMARY | 2025-02-28 16:08 | XMS_ITS | Encounter Summary ---
Author Organization [employer] Address [address] [place] [address] Care Team Providers Care Compliance Lead Name Role Phone Carla Hart MD Primary Care Provider Reason for Visit * Reason Onset Date Comments Pre op 04/28/2024 Encounter Details Date Type Department Care Team ([facility] st Contact Info) Description 04/28/2024 Telephone [facility] [address] [place], [place] [phone] Carla Hart MD [address] [place] [address] Pre op Social History Tobacco Use Types [...] name: [facility] Surgeon's office number: [phone] Surgeon's office fax number: [phone] Contact name (person you spoke with): Noelle [...] documented as of this encounter Care Teams Compliance Lead Relationship Specialty Start Date End Date Carla Hart MD [address] [place] [address] PCP - General Family Medicine 07/06/18 documented as of this encounter
--- OUTSIDE RECORDS SUMMARY | 2025-02-28 16:08 | XMS_ITS | Encounter Summary ---
Author Organization [employer] Address [address] [place] [address] Care Team Providers Care Cloth Grader Name Role Phone Carla Hart MD Primary Care Provider [phone] Reason for Visit * Reason Onset Date Comments Nurse Triage 09/06/2024 Encounter Details Date Type Department Care Team ([facility] st Contact Info) Description 09/06/2024 Telephone C [facility] [address] [place], [place] [phone] Carla Hart MD [address] [place] [address] Nurse Triage Social History Tobacco Use Types [...] Triage call returned to patient with BLS [phone]. Patient reports concerns of fatigue and lethargy.Patient reports she went to her country [facility] and was identified to have issues [...] documented as of this encounter Care Teams Cloth Grader Relationship Specialty Start Date End Date Carla Hart MD [address] [place] [phone] PCP - General Family Medicine 07/06/18 documented as of this encounter
[2025-02-28 17:54] LABS: MANUAL DIFF FLAG NO
[2025-02-28 18:21] LABS: Hematocrit 39.6 % (37.0-47.0); Hemoglobin 13.2 g/dl (12.0-16.0); Imm Gran Abs Auto 0.01 X10*3/uL (0.00-0.03); Imm Gran Pct Auto 0.2 % (0.0-0.4); Lymphocytes Absolute Auto 2.8 X10*3/uL (1.2-4.9); Mean Corpuscular HGB Conc 33.3 g/dl (31.0-35.0); Mean Corpuscular Hemoglobin 29.9 pg (27.0-33.0); Mean Corpuscular Volume 89.8 fL (80.0-98.0); NRBC Abs Auto 0.000 X10*3/uL (0.0-0.012); NRBC Pct Auto 0.0 /100WBC (0.0-0.2); Platelet Count 218 X10*3/uL (160-400); Red Blood Count 4.41 X10*6/uL (4.20-5.50); White Blood Count 6.4 X10*3/uL (4.8-10.8)
[2025-02-28 18:40] LABS: Alanine Aminotransferase 22 U/L (0-31); Albumin Level 4.0 g/dL (3.5-5.0); Alkaline Phosphatase 77 U/L (39-117); Anion Gap 11 (12-20); Aspartate Amino Transferase 38 U/L (5-31); Blood Urea Nitrogen 11 mg/dL (9-16); Calcium 9.3 mg/dL (8.4-10.2); Carbon Dioxide 28 mmol/L (22-29); Chloride 107 mmol/L (96-108); Cholesterol 171 mg/dL (<200); Estimated Glomerular Filt Rate > 60; HDL Cholesterol 32 mg/dL (>40); Potassium 3.9 mmol/L (3.3-5.1); Sodium 142 mmol/L (135-145); Total Protein 7.1 g/dL (6.5-8.0); Triglycerides 133 mg/dL (<150)
== END 2025-02-28 15:12 | disposition home or self-care (01) ==
LOC: HO.CHCLDS 15:11
PROVIDERS: Visit Provider Internal Medicine
DX: Z01.818 Encounter for other preprocedural examination (principal); Z13.6 Encounter for screening for cardiovascular disorders
CPT/HCPCS: 36415; 80053; 80061; 84443; 85025

== ENCOUNTER 2025-03-02 09:31 | Outpatient (AMB) | payer OTHER, SELFPAY ==
--- OUTSIDE RECORDS SUMMARY | 2025-02-28 14:15 | XMS_ITS | Encounter Summary ---
Author Organization [employer] Address [address] [place] [address] Care Team Providers Care Portfolio Administrator Name Role Phone Carla Hart MD Primary Care Provider [phone] Reason for Referral * Imaging (Routine) - Authorized Specialty Diagnoses / Procedures Referred By Ernie john Referred To Contact Radiology Diagnoses Transaminitis Procedures US Abdomen Comp w elastography Flower Gabriel MD [address] [place] [address] Phone: tel: fax: [address] Phone: tel: fax: Referral ID Status Reason Start Date Expiration Date V isits Requested Visits Authorized [id number] Authorized 03/01/2025 03/01/2026 1 1 Encounter Details Date Type Department Care Team (Late st Contact Info) Description 02/28/2025 2:15 PM EDT Office Visit [facility] [address], [place] [phone] Flower Gabriel MD [address], [place] [phone] Pre-op evaluation (Primary Dx); Transaminitis Social History Tobacco Use Types Packs/Day Years [...] Type Priority Associated Diagnoses Orde r Schedule Hepatitis Panel, General Lab Routine Transaminitis Expected: 03/01/2025, Expires: 03/01/2026 Hepatitis B Surface Antibody, Qualitative Lab Routine Transaminitis Expected: 03/01/2025 (Approximate), Expires: 03/01/2026 US Abdomen Comp w elastography Imaging Routine Transaminitis Expected: 03/01/2025, Expires: 03/01/2026 Smooth Muscle Antibody with Reflex to Titer Lab Routine Transaminitis Expected: 03/01/2025 (Approximate), Expires: 03/01/2026 Immunoglobulins, Quantitative, IgA, IgG, IgM Lab Routine Transaminitis Expected: 03/01/2025 (Approximate), Expires: 03/01/2026 Prothrombin Time-INR Lab Routine Transaminitis Expected: 03/01/2025, Expires: 03/01/2026 Ferritin Lab Routine Transaminitis Expected: 03/01/2025, Expires: 03/01/2026 Iron And Total Iron Binding Capacity Lab Routine Transaminitis Expected: 03/01/2025, Expires: 03/01/2026 Alpha 1 Antitrypsin Lab Routine Transaminitis Expected: 03/01/2025 (Approximate), Expires: 03/01/2026 documented as of this encounter Procedures Procedure Name Priority Date/Time Associated Diagnosis Comments POCT RAPID COVID ANTIGEN Routine 02/28/2025 3:12 PM EDT Pre-op evaluation TSH W/REFLEX TO FT4 Routine 02/28/2025 3:12 PM EDT Pre-op evaluation CBC WITH AUTO DIFFERENTIAL Routine 02/28/2025 3:12 PM EDT Pre-op evaluation LIPID PANEL, STANDARD Routine 02/28/2025 3:12 PM EDT Pre-op evaluation COMPREHENSIVE METABOLIC PANEL Routine 02/28/2025 3:12 PM EDT Pre-op evaluation POCT INFLUENZA A Routine 02/28/2025 3:10 PM EDT Pre-op evaluation POCT INFLUENZA B Routine 02/28/2025 3:09 PM EDT Pre-op evaluation ECG 12-LEAD Routine 02/28/2025 3:03 PM EDT Pre-op evaluation documented in this encounter Results * TSH with Reflex to Free T4 (02/28/2025 3:12 PM EDT) TSH reflex Free T4 0.53 0.32 - 4.0 uIU/mL [facility] Blood Venous blood specimen / Unknown 02/28/2025 3:12 PM EDT 02/28/2025 5:39 PM EDT us Flower Gabriel MD LAB BLOOD ORDERABLES Final Result [facility] [address] [place] [address] [phone] * (ABNORMAL) Lipid Panel, Standard (02/28/2025 3:12 PM EDT) Triglycerides 133 <150 mg/dL [facility] Comment:Slight Lipemia.Jorge Luis able Triglyceride: less than 150 mg/dLBorderline High Triglyceride 150-199 mg/dLHigh Triglyceride: 200-499 mg/dLVery High Triglyceride: greater than or equal to 5OO mg/dL Cholesterol 171 <200 mg/dL [facility] Comment:Desirable Cholestero l: less than 200 mg/dLBorderline High Cholesterol: 200-239 mg/dLHigh Cholesterol: greater than 239 mg/dL LDL Cholesterol Calculated 113(H) <100 mg/dL [facility] Comment:Desirable LDL: less than 100 mg/dLNear Optimal/Above Optimal LDL: 110- 129 mg/dLBorderline High LDL: 130-159 mg/dLHigh LDL: 160-189 mg/dLVery High LDL: greater than or equal to 190 mg/dL HDL Cholesterol 32(L) >40 mg/dL [facility] Comment:Desirable HDL: great er than 40 mg/dL Note: This HDL assay may give artificially low results in patients with liver disease. Blood Venous blood specimen / Unknown 02/28/2025 3:12 PM EDT 02/28/2025 5:39 PM EDT us Flower Gabriel MD LAB BLOOD ORDERABLES Final Result [facility] [address] [place] [phone] * (ABNORMAL) Comprehensive Metabolic Panel (02/28/2025 3:12 PM EDT) Sodium 142 135 - 145 mmol/L [facility] Potassium 3.9 3.3 - 5.1 mmol/L [facility] Comment:Slight Hemolysis.Int erpret result with caution. Chloride 107 96 - 108 mmol/L [facility] Carbon Dioxide 28 22 - 29 mmol/L [facility] Anion Gap 11(L) 12 - 20 [facility] Urea Nitrogen (BUN) 11 9 - 16 mg/dL [facility] Creatinine, Serum 0.66 0.5 - 1.4 mg/dL [facility] Estimated Glomerular Filt Rate >60 [facility] Comment:Chronic Kidney Disea se: Estimated GFR < 60 mL/min/[id number] Kidney Disease: Estimated GFR < 15 mL/min/1.73m2 Glucose 90 60 - 115 mg/dL [facility] Calcium 9.3 8.4 - 10.2 mg/dL [facility] Bilirubin, Total 0.2 0.0 - 1.0 mg/dL [facility] Aspartate Amino Transferase 38(H) 5 - 31 U/L [facility] Comment:Slight Hemolysis.Int erpret result with caution. Alanine Aminotransferase 22 0 - 31 U/L [facility] Total Protein 7.1 6.5 - 8.0 g/dL [facility] Albumin Level 4.0 3.5 - 5.0 g/dL [facility] Alkaline Phosphatase 77 39 - 117 U/L [facility] Blood Venous blood specimen / Unknown 02/28/2025 3:12 PM EDT 02/28/2025 5:39 PM EDT us Flower Gabriel MD LAB BLOOD ORDERABLES Final Result [facility] [address] [place] [phone] * (ABNORMAL) CBC auto differential (02/28/2025 3:12 PM EDT) White Blood Count 6.4 4.8 - 10.8 X10*3/uL [facility] Red Blood Count 4.41 4.20 - 5.50 X10*6/uL [facility] Hemoglobin 13.2 12.0 - 16.0 g/dl [facility] Hematocrit 39.6 37.0 - 47.0 % [facility] Mean Corpuscular Volume 89.8 80.0 - 98.0 fL [facility] Mean Corpuscular Hemoglobin 29.9 27.0 - 33.0 pg [facility] Mean Corpuscular HGB Conc 33.3 31.0 - 35.0 g/dl [facility] Red Cell Distribution Width 12.8 11.0 - 16.0 % [facility] Platelet Count 218 160 - 400 X10*3/uL [facility] Mean Platelet Volume 10.6 9.4 - 12.3 fL [facility] Neutrophils Percent Auto 39.8(L) 45 - 73 % [facility] Imm Gran Pct Auto 0.2 0.0 - 0.4 % [facility] Lymphocytes Percent Auto 43.8(H) 20 - 40 % [facility] Monocytes Percent Auto 11.5(H) 2 - 11 % [facility] Eosinophils Percent Auto 3.9 0 - 4 % [facility] Basophils Percent Auto 0.8 0 - 2 % [facility] NRBC Pct Auto 0.0 0.0 - 0.2 /100WBC [facility] Neutrophils Absolute Auto 2.5 2.0 - 8.3 x10*3/uL [facility] Imm Gran Abs Auto 0.01 0.00 - 0.03 X10*3/uL [facility] Lymphocytes Absolute Auto 2.8 1.2 - 4.9 X10*3/uL [facility] Monocytes Absolute Auto 0.7 0.1 - 1.2 X10*3/uL [facility] Eosinophils Absolute Auto 0.3 0.0 - 0.4 X10*3/uL [facility] Basophils Absolute Auto 0.1 0.0 - 0.2 X10*3/uL [facility] NRBC Abs Auto 0.000 0.0 - 0.012 X10*3/uL [facility] Blood Venous blood specimen / Unknown 02/28/2025 3:12 PM EDT 02/28/2025 5:39 PM EDT us Flower Gabriel MD LAB BLOOD ORDERABLES Final Result [facility] [address] [place] [phone] * POCT Rapid Covid-19 BinaxNOW (02/28/2025 3:12 PM EDT) [facility] Rapid COVID Ag Negative QC Media Lot # [id number] Lot# Expiration Date [id number] Comment:controls passed Swab 02/28/2025 3:12 PM EDT Flower Gabriel MD POINT OF CARE TEST ENTER/ED IT ORDERABLES Final Result * POCT Rapid Influenza A OSOM (02/28/2025 3:10 PM EDT) Rapid Influenza A Ag Negative Negative, Indeterminate QC Media Lot # [id number] Comment:controls passed Lot# Expiration Date , Swab Nasopharyngeal structure / Unknown 02/28/2025 3:10 PM EDT Flower Gabriel MD POINT OF CARE TEST ENTER/ED IT ORDERABLES Final Result * POCT Rapid Influenza B OSOM (02/28/2025 3:09 PM EDT) Pathologist [facility] Rapid Influenza B Ag Negative Negative, Indeterminate QC Media Lot # [id number] Lot# Expiration Date , Comment:controls passed Swab 02/28/2025 3:09 PM EDT Flower Gabriel MD POINT OF CARE TEST ENTER/ED IT ORDERABLES Final Result * ECG 12 lead (02/28/2025 3:03 PM EDT) Narrative Flower Gabriel MD - 02/28/2025 3:03 PM EDT HR 59 bpm. [place] : 37 degrees. Sinus rhythm. No Sign of EDSON/LAE. No sign of hypertrophy. Intra-atrial conduction delay. No ST elevation or ST depression. Borderline EKG. No significant findings on the EKG> Flower Gabriel MD ECG ORDERABLES Final Resul t documented in this encounter Visit Diagnoses Diagnosis Pre-op evaluation- Primary Transaminitis Nonspecific elevation of levels of transaminase or lactic acid dehydrogenase (LDH) documented in this encounter Additional Health Concerns Assessment Noted Time PHQ-9 Depression Total Score: 1 02/29/20 25 2:36 PM EDT documented as of this encounter Care Teams Portfolio Administrator Relationship Specialty Start Date End Date Carla Hart MD [address] [place] [address] PCP - General Family Medicine 07/06/18 documented as of this encounter
--- NOTE | 2025-03-02 09:39 | MHC.OFFVIS ---
Vital Signs 03/02/25 09:43 Height 5 ft Weight 162 lb BMI 31.6 BP 100/54 L Blood Pressure Location Lt brachial Position Sitting Pulse 74 Pulse Oximetry (%) 96 Oxygen Delivery Method Room Air Intake Visit Reasons: h pylori f/u Intake Note: Patient follow up for Chronic GERD, lab and h-pylori results. Patient cc: abdominal pain and acid reflux on and off, Denies any other GI issues. Endless Belt Finisher Required: Yes Endless Belt Finisher [place]: [facility] [place] Accompanied by: Self / Same As Patient Allergies No Known Allergies Allergy (Verified 03/02/25 09:38) Medication List - Last Reconciled 03/02/25 by Magdalene North CNP atorvastatin 40 mg PO BEDTIME bisoprolol fumarate 5 mg PO DAILY calcium carbonate 600 mg PO BID cholecalciferol (vitamin D3) 50 mcg PO Q12H gabapentin 300 mg PO BID PRN 30 days lidocaine 5% 1 patch topical DAILY lidocaine 5% (Lidoderm) 1 patch topical DAILY multivitamin with folic acid 400 mcg (Daily-Mitch (with folic acid)) tabs PO pantoprazole 20 mg PO DAILY HPI HPI h pylori f/u: Details: Patient is a Romansh-speaking 69-year-old female with PMH of hyperlipidemia and GERD. Presenting with gastroesophageal reflux disease (GERD). She was treated for an H. pylori infection earlier this year, confirmed to be eradicated through recent retesting. The patient reports improvement in acid reflux symptoms, experiencing pain less frequently, though intermittent discomfort persists, especially at night and in the epigastric region. Episodes may be associated with dietary triggers or stress factors. Compliance with Pantoprazole is intermittent; patient acknowledges missing doses several times a month. Prior upper endoscopy revealed esophageal inflammation. Patient denies nausea, vomiting, or trouble swallowing and has discontinued use of sucralfate per recommendation. Stress exacerbates symptoms, and patient emphasizes the importance of maintaining calm to manage discomfort. [facility] Medical History (Updated 03/02/25 @ 10:31 by Magdalene North CNP) Elevated LFTs H. pylori infection Chronic GERD Elevated cholesterol History of COVID-19 GERD (gastroesophageal reflux disease) Sacroiliac joint dysfunction Lumbar spondylosis Lumbar radiculopathy Surgical History History of esophagogastroduodenoscopy (EGD) H/O colonoscopy History of surgery on arm Social History Household Members: Spouse Alcohol intake: current Alcohol intake frequency: does not drink Patient Tobacco Use Status: Never used Tobacco Review of Systems Const Reports as per HPI ENT Reports as per HPI Card Reports as per HPI Resp Reports as per HPI GI Reports as per HPI Reports as per HPI Physical Exam Vital Signs: Last Vital Signs Pulse 74 03/02/25 09:43 BP 100/54 L 03/02/25 09:43 Pulse Ox 96 03/02/25 09:43 Oxygen Delivery Method Room Air 03/02/25 09:43 BMI result Body Mass Index 31.6 Const General: healthy appearing, no acute distress and well developed Nutritional Appearance: average body habitus Orientation/consciousness: patient oriented x3 HEENT Head: Yes normal to inspection, Yes normocephalic and Yes atraumatic Face and sinus: Yes normal facial exam Eyes General: appearance normal, both eyes and all related structures Neck Neck: Yes normal visual inspection Resp Effort & Inspection: normal respiratory effort, able to speak in complete sentences, no tracheal deviation and symmetric chest movement GI Inspection: Yes normal to inspection, No distended and Yes obesity Palpation (GI): Soft to palpation, not firm, nontender and No hepatosplenomegaly present Auscultation: normoactive bowel sounds Neuro General: patient oriented x3 Gait exam (Neuro): Normal gait present Psych Appearance: grossly normal Mental Status: mental status grossly normal Speech and movement: Normal speech and movement present Affect: normal affect Attitude: cooperative Thought process: Normal thought process present Thought content: Normal thought content present Insight: Good insight present (Psych) Judgement: Good judgement present (Psych) Results Reviewed Results Reviewed: Laboratory Tests 02/28/25 15:12 Random Glucose 90 Calcium 9.3 Total Bilirubin 0.2 AST 38 H ALT 22 Alkaline Phosphatase 77 Total Protein 7.1 Albumin 4.0 Triglycerides 133 Cholesterol 171 LDL Cholesterol, Calc 113 H HDL Cholesterol 32 L TSH 0.53 Assessment & Plan Assessment & Plan (1) Chronic GERD: Comment: Findings of upper endoscopy in July 2024 in the [place] ( with interpreters certified medical assistant)- Esophagitis grade B erosive, erosive gastropathy, atrophic gastropathy, chronic gastropathy, gastric biopsies taken. Pathology not available. Code(s): K21.9 - Gastro-esophageal reflux disease without esophagitis Category: Medical Plan: Improving but intermittent recurrence of symptoms. Continued inflammation requires consistent daily dosing of Pantoprazole. Dietary and lifestyle modifications emphasized given strong role of triggers and stress in symptom exacerbation. Medications:Pantoprazole 20 mg daily (need to confirm dose), declined need for refills. Reinforced importance of compliance. Lifestyle Recommendations: -Avoid known triggers, including caffeine, acidic foods, and fried/fatty foods. -Maintain adequate hydration. -Stress management strategies discussed. Follow-Up Plan:3-month follow-up to reassess symptoms and response to therapy. (2) H. pylori infection: Code(s): A04.8 - Other specified bacterial intestinal infections Category: Medical Plan: No further action required as infection is cleared. (3) Elevated LFTs: Code(s): R79.89 - Other specified abnormal findings of blood chemistry Category: Medical Plan: Repeat liver panel with fasting sample to verify normalization of mildly elevated levels seen in non-fasting state. Reviewed orders placed by PCP, including abdominal ultrasound and additional lab work. Radiology team will contact patient to schedule. Results to be reviewed for coordination. Plan Follow-up in 3 months or sooner as needed Time: I spent a total of 30 minutes on the date of encounter which includes: Preparing to see the patient (reviewed previous documentation, test results and medical history) Performing a medically appropriate exam and/or evaluation Ordering medications, tests, and procedures Documenting clinical information in the health record Orders: Orders Liver Panel Today R10.13 - Epigastric pain Coding Level of Care Code Established Pt Est Pt Level 3 (17356) Patient Type Established Diagnoses Chronic GERD K21.9 H. pylori infection A04.8 Elevated LFTs R79.89
[2025-03-02 09:43] VITALS: BP 100/54; PULSE 74; O2SAT 96; BMI 31.6
--- OUTSIDE RECORDS SUMMARY | 2025-03-02 10:34 | XMS_ITS | Encounter Summary ---
Author Organization [employer] Address [address] [place] [address] Care Team Providers Care Underwater Roboticist Name Role Phone Carla Hart MD Primary Care Provider [phone] Reason for Visit * Reason Onset Date Comments Appointment Request 02/13/2025 Encounter Details Date Type Department Care Team ([facility] st Contact Info) Description 02/13/2025 Telephone [facility] MEDICINE [address] [place] [address] Carla Hart MD [address] [place] [address] [phone] Appointment Request Social History Tobacco Use Types [...] PCP for this condition. Contact pt at [phone] Need tool crib lead documented in this encounter Plan of Treatment Not on file documented as of this encounter Visit Diagnoses Not on filedocumented in this encounter Additional Health Concerns Assessment Noted Time PHQ-9 Depression Total Score: 2 09/11/19 24 10:02 AM EST documented as of this encounter Care Teams Underwater Roboticist Relationship Specialty Start Date End Date Carla Hart MD [address] [place] [address] PCP - General Family Medicine 07/06/18 documented as of this encounter
--- OUTSIDE RECORDS SUMMARY | 2025-03-02 10:35 | XMS_ITS | Encounter Summary ---
Author Organization [employer] Address 75 [facility] [address] [place] [address] Care Team Providers Care C++ Professor Name Role Phone Carla Hart MD Primary Care Provider [phone] Encounter Details Date Type Department Care Team ([facility] st Contact Info) Description 08/13/2022 Telephone [facility] MEDICINE [address] [place] [address] Carla Hart MD [address] [place], [place] [phone] Social History Tobacco Use Types Packs/Day Years [...] documented as of this encounter Care Teams C++ Professor Relationship Specialty Start Date End Date Carla Hart MD [address] [place] [phone] PCP - General Family Medicine 07/06/18 documented as of this encounter
--- OUTSIDE RECORDS SUMMARY | 2025-03-02 10:35 | XMS_ITS | Encounter Summary ---
Author Organization [employer] Address 75 [facility] [address] [place] [address] Care Team Providers Care Development Engineer Name Role Phone Carla Hart MD Primary Care Provider [phone] Encounter Details Date Type Department Care Team (Latest Contact Info) Description 01/20/2025 Results Follow-Up [facility] MED & PEDS [address] [place], [place] [phone] Carla Hart MD [address] [place] [address] Helicobacter pylori, Urea Breath Test Social History [...] is your housing situation today? I have kyala levine 09/11/[address] you [...] documented as of this encounter Care Teams Development Engineer Relationship Specialty Start Date End Date Carla Hart MD [address] [place] [phone] PCP - General Family Medicine 07/06/18 documented as of this encounter
--- OUTSIDE RECORDS SUMMARY | 2025-03-02 10:35 | XMS_ITS | Encounter Summary ---
Author Organization [employer] Address 75 [facility] 7 [place] [address] Care Team Providers Care Inspector Water Pollution Control Name Role Phone Carla Hart MD Primary Care Provider [phone] Reason for Visit * Reason Onset Date Comments callback requested 06/06/2024 Encounter Details Date Type Department Care Team ([facility] st Contact Info) Description 06/06/2024 Telephone [facility] [address] [place] [address] Carla Hart MD [address] [place] [address] [phone] callback requested Social History Tobacco Use Types [...] due to knee pain constantly. Callback number [phone] documented in this encounter Plan of Treatment Not on file documented as of this encounter Visit Diagnoses Not on filedocumented in this encounter Additional Health Concerns Assessment Noted Time PHQ-9 Depression Total Score: 2 09/11/19 24 10:02 AM EST documented as of this encounter Care Teams Inspector Water Pollution Control Relationship Specialty Start Date End Date Carla aHrt MD [address] [place] [address] PCP - General Family Medicine 07/06/18 documented as of this encounter
--- OUTSIDE RECORDS SUMMARY | 2025-03-02 10:35 | XMS_ITS | Encounter Summary ---
Author Organization [employer] Address 75 [facility] [address] [place] [address] Care Team Providers Care Environmental Laboratory Technician Name Role Phone Carla Hart MD Primary Care Provider [phone] Reason for Visit * Reason Onset Date Comments Results 03/02/2025 Encounter Details Date Type Department Care Team ([facility] st Contact Info) Description 03/02/2025 Results Follow-Up [facility] CHC MED & PEDS [address] [place], [place] [phone] Kaylyn Nino RN POCT Rapid Covid-19 BinaxNOW, POCT Rapid Influenza A OSOM, POCT Rapid Influenza B OSOM, Additional followed-up results: 4 Social History Tobacco Use Types Packs/Day Years [...] encounter Miscellaneous Notes * Telephone Encounter - Kaylyn Nino RN - 03/02/2025 10:15 AM EDT TC to pt x2. supervising chef used. No answer. VM left * Telephone Encounter - Kaylyn Nino RN - 03/02/2025 10:14 AM EDT ----- Message from Flower Gabriel MD sent at 03/01/2025 1:07 PM EDT ----- Please call. Mrs. Celeste Pugh was evaluated for preop evaluation yesterday. Blood work is acceptable for the surgery. It shows mild elevation of a liver enzyme. I will order a workup in an attempt to find the cause. Patient is to follow-up with PCP. ----- Message ----- From: Joselyn Valenzuela [place] Sent: 02/28/2025 3:10 PM EDT To: Flower Gabriel MD documented in this encounter Plan of Treatment Not on file documented as of this encounter Visit Diagnoses Not on filedocumented in this encounter Additional Health Concerns Assessment Noted Time PHQ-9 Depression Total Score: 1 02/29/20 25 2:36 PM EDT documented as of this encounter Care Teams Environmental Laboratory Technician Relationship Specialty Start Date End Date Carla Hart MD [address] [place] [id number] PCP - General Family Medicine 07/06/18 documented as of this encounter
--- OUTSIDE RECORDS SUMMARY | 2025-03-02 10:35 | XMS_ITS | Encounter Summary ---
Author Organization [employer] Address [address] [place] [address] Care Team Providers Care City Library Director Name Role Phone Carla Hart MD Primary Care Provider [phone] Reason for Visit * Reason Onset Date Comments Pre op 04/28/2024 Encounter Details Date Type Department Care Team ([facility] st Contact Info) Description 04/28/2024 Telephone [facility] CHC MED & PEDS [address] [place], [place] [phone] Carla Hart MD [address] [place] [address] Pre op Social History Tobacco Use Types [...] name: [facility] Las[facility] Surgeon's office number: [phone] Surgeon's office fax number: [phone] Contact name (person you spoke with): Noelle [...] documented as of this encounter Care Teams City Library Director Relationship Specialty Start Date End Date Carla Hart MD [address] [place] [address] PCP - General Family Medicine 07/06/18 documented as of this encounter
--- OUTSIDE RECORDS SUMMARY | 2025-03-02 10:35 | XMS_ITS | Encounter Summary ---
Author Organization [employer] Address [address] [place] [address] Care Team Providers Care Title Manager Name Role Phone Carla Hart MD Primary Care Provider [phone] Reason for Visit * Reason Onset Date Comments Med Refill 11/10/2024 Encounter Details Date Type Department Care Team ([facility] st Contact Info) Description 11/10/2024 Telephone [facility] MEDICINE [address] [place] [address] Carla Hart MD [address] [place] [address] [phone] Med Refill Social History Tobacco Use Types [...] 10:23 AM EDT Med[facility] was [id number] 11/09/24 #180 with 3 refills. * Telephone Encounter - Ambrocio Chi - 11/10/2024 10:21 AM EDT TC from pt requesting medication refill. Medications needing refill : calcium carbonate 1500 (600 Ca) MG tablet To be sent to: [id number] - [address] documented in this encounter Plan of Treatment Not on file documented as of this encounter Visit Diagnoses Not on filedocumented in this encounter Additional Health Concerns Assessment Noted Time PHQ-9 Depression Total Score: 2 09/11/19 24 10:02 AM EST documented as of this encounter Care Teams Title Manager Relationship Specialty Start Date End Date Carla Hart MD [address] [place] [phone] PCP - General Family Medicine 07/06/18 documented as of this encounter
--- OUTSIDE RECORDS SUMMARY | 2025-03-02 10:35 | XMS_ITS | Encounter Summary ---
Author Organization [employer] Address 75 [facility] [address] [place] [address] Care Team Providers Care Hog Cooler Name Role Phone Carla Hart MD Primary Care Provider [phone] Encounter Details Date Type Department Care Team (Latest Contact Info) Description 08/13/2022 Orders Only [facility] MEDICINE [address] [place] [address] Carla Hart MD [address] [place], [place] [phone] Benign essential hypertension (Primary Dx); Pain of [...] documented as of this encounter Care Teams Hog Cooler Relationship Specialty Start Date End Date Carla Hart MD [address] [place] [address] PCP - General Family Medicine 07/06/18 documented as of this encounter
--- OUTSIDE RECORDS SUMMARY | 2025-03-02 10:35 | XMS_ITS | Encounter Summary ---
Author Organization [employer] Address [address] [place] [address] Care Team Providers Care Towel Hemmer Name Role Phone Carla Hart MD Primary Care Provider [phone] Reason for Visit * Reason Onset Date Comments Nurse Triage 09/06/2024 Encounter Details Date Type Department Care Team ([facility] st Contact Info) Description 09/06/2024 Telephone C [facility] MED [facility] PEDS [address] [place], [place] [phone] Carla Hart MD [address] [place] [address] Nurse Triage Social History Tobacco Use Types [...] Triage call returned to patient with BLS [phone]. Patient reports concerns of fatigue and lethargy.Patient reports she went to her country [facility] and was identified to have [...] documented as of this encounter Care Teams Towel Hemmer Relationship Specialty Start Date End Date Carla Hart MD [address] [place] [id number] PCP - General Family Medicine 07/06/18 documented as of this encounter
--- OUTSIDE RECORDS SUMMARY | 2025-03-02 10:35 | XMS_ITS | Clinical Summary ---
Author Organization [employer] Address [address] [facility] 7[address] [place] [address] Care Team Providers Care Hogshead Dumper Name Role Phone Carla Hart MD Primary Care Provider [phone] Allergies No known active allergies Medications naproxen [...] Encounters Date Type Department Care Team Description 03/02/2025 Results Follow-Up [facility] [address] [place] [address] Kaylyn Nino RN POCT Rapid Covid-19 BinaxNOW, POCT Rapid Influenza A OSOM, POCT Rapid Influenza B OSOM, Additional followed-up results: 4 02/28/2025 2:15 PM EDT Office Visit [facility] [address] [place] [address] Flower Gabriel MD Pre-op evaluation (Primary Dx); Transaminitis 02/28/2025 Travel 02/22/2025 Telephone [facility] [address] [place] [address] Carla Hart MD pre op 02/15/2025 3:30 PM EDT Office Visit [facility] [address] [place] [address] Carla Hart MD Atypical chest pain (Primary Dx); Benign essential hypertension; Pure hypercholesterolemia ; Family history of early CAD 02/15/2025 Travel 02/15/2025 Telephone [facility] [address] [place] [address] Carla Hart MD Transition Of Care (Tcm) 02/13/2025 Telephone [facility] [address] [place] [phone] Carla Hart MD Appointment Request 01/20/2025 Results Follow-Up [facility] [address] [place] [address] Carla Hart MD Helicobacter pylori, Urea Breath [...] Vaccine ( season) 2024 04/23/2021, 10/15/2020, 09/17/2020 Influenza Vaccine (#1) 2025 , 04/18/2021, 06/11/2017, Additional history exists Mammogram 09/07/2025 09/07/2024, 02/2024, 08/07/2022, Additional history exists Dental X-Ray: Full Mouth 11/25/2025 11/24/2022 Tobacco Screening 02/15/2026 02/15/2025 Alcohol/Substance Use Screening 02/28/2026 02/28/2025 Depression Screening 02/28/2026 02/28/2025, 02/29/20 25 SDOH Screening 02/28/2026 02/28/2025 Lipid Panel 02/28/2030 02/28/2025, 02/2024, 08/27/2023, Additional history exists RSV Patients and Patients [...] evaluation TSH W/REFLEX TO FT4 Routine 02/28/2025 3 :12 PM EDT Pre-op evaluation LIPID PANEL, STANDARD [...] TOMOSYNTHESIS BILATERAL Routine 09/07/2024 1:45 PM EST PROPHYLAXIS - ADULT Routine 11/28/2022 9 [...] Media Lot # [id number] Lot# Expiration Date 498 Comment:controls passed Swab 02/28/2025 3:12 PM EDT Flower Gabriel MD POINT OF CARE TEST ENTER/ED IT ORDERABLES Final Result * TSH with Reflex to Free T4 (02/28/2025 3:12 PM EDT) TSH reflex Free T4 0.53 0.32 - 4.0 uIU/mL [facility] Blood Venous blood specimen / Unknown 02/28/2025 3:12 PM EDT 02/28/2025 5:39 PM EDT Flower Gabriel MD LAB BLOOD ORDERABLES Final Result [facility] [address] [place] [phone] * (ABNORMAL) CBC auto differential (02/28/2025 3:12 PM EDT) Only the most recent of2 resultswithin the time period is included. White Blood Count 6.4 4.8 - 10.8 X10*3/uL [facility] Red Blood Count 4.41 4.20 - 5.50 X10*6/uL [facility] Hemoglobin 13.2 12.0 - 16.0 g/dl [facility] Hematocrit 39.6 37.0 - 47.0 % [facility] Mean Corpuscular Volume 89.8 80.0 - 98.0 fL [facility] Mean Corpuscular Hemoglobin 29.9 27.0 - 33.0 pg [facility] Mean Corpuscular HGB Conc 33.3 31.0 - 35.0 g/dl [facility] Red Cell Distribution Width 12.8 11.0 - 16.0 % [facility] Platelet Count 218 160 - 400 X10*3/uL [facility] Mean Platelet Volume 10.6 9.4 - 12.3 fL [facility] Neutrophils Percent Auto 39.8(L) 45 - 73 % [facility] Imm Gran Pct Auto 0.2 0.0 - 0.4 % [facility] Lymphocytes Percent Auto 43.8(H) 20 - 40 % [facility] Monocytes Percent Auto 11.5(H) 2 - 11 % [facility] Eosinophils Percent Auto 3.9 0 - 4 % [facility] Basophils Percent Auto 0.8 0 - 2 % [facility] NRBC Pct Auto 0.0 0.0 - 0.2 /100WBC [facility] Neutrophils Absolute Auto 2.5 2.0 - 8.3 x10*3/uL [facility] Imm Gran Abs Auto 0.01 0.00 - 0.03 X10*3/uL [facility] Lymphocytes Absolute Auto 2.8 1.2 - 4.9 X10*3/uL [facility] Monocytes Absolute Auto 0.7 0.1 - 1.2 X10*3/uL [facility] Eosinophils Absolute Auto 0.3 0.0 - 0.4 X10*3/uL [facility] Basophils Absolute Auto 0.1 0.0 - 0.2 X10*3/uL [facility] NRBC Abs Auto 0.000 0.0 - 0.012 X10*3/uL [facility] Blood Venous blood specimen / Unknown 02/28/2025 3:12 PM EDT 02/28/2025 5:39 PM EDT us Flower Gabriel MD LAB BLOOD ORDERABLES Final Result [facility] [address] [place] [phone] * (ABNORMAL) Lipid Panel, Standard (02/28/2025 3:12 PM EDT) Triglycerides 133 <150 mg/dL [facility] Comment:Slight Lipemia.Jorge Luis able Triglyceride: less than 150 mg/dLBorderline High Triglyceride 150-199 mg/dLHigh Triglyceride: 200-499 mg/dLVery High Triglyceride: greater than or equal to 5OO mg/dL Cholesterol 171 <200 mg/dL [facility] Comment:Desirable Cholestero l: less than 200 mg/dLBorderline High Cholesterol: 200-239 mg/dLHigh Cholesterol: greater than 239 mg/dL LDL Cholesterol Calculated 113(H) <100 mg/dL [facility] Comment:Desirable LDL: less than 100 mg/dLNear Optimal/Above Optimal LDL: 110- 129 mg/dLBorderline High LDL: 130-159 mg/dLHigh LDL: 160-189 mg/dLVery High LDL: greater than or equal to 190 mg/dL HDL Cholesterol 32(L) >40 mg/dL [facility] Comment:Desirable HDL: great er than 40 mg/dL Note: This HDL assay may give artificially low results in patients with liver disease. Blood Venous blood specimen / Unknown 02/28/2025 3:12 PM EDT 02/28/2025 5:39 PM EDT us Flower Gabriel MD LAB BLOOD ORDERABLES Final Result [facility] [address] [place] [phone] * (ABNORMAL) Comprehensive Metabolic Panel (02/28/2025 3:12 PM EDT) Sodium 142 135 - 145 mmol/L [facility] Potassium 3.9 3.3 - 5.1 mmol/L [facility] Comment:Slight Hemolysis.Int erpret result with caution. Chloride 107 96 - 108 mmol/L [facility] Carbon Dioxide 28 22 - 29 mmol/L [facility] Anion Gap 11(L) 12 - 20 [facility] Urea Nitrogen (BUN) 11 9 - 16 mg/dL [facility] Creatinine, Serum 0.66 0.5 - 1.4 mg/dL [facility] Estimated Glomerular Filt Rate >60 [facility] Comment:Chronic Kidney Disea se: Estimated GFR < 60 mL/min/1.76e5Pnagvq Kidney Disease: Estimated GFR < 15 mL/min/1.73m2 Glucose 90 60 - 115 mg/dL [facility] Calcium 9.3 8.4 - 10.2 mg/dL [facility] Bilirubin, Total 0.2 0.0 - 1.0 mg/dL [facility] Aspartate Amino Transferase 38(H) 5 - 31 U/L [facility] Comment:Slight Hemolysis.Int erpret result with caution. Alanine Aminotransferase 22 0 - 31 U/L [facility] Total Protein 7.1 6.5 - 8.0 g/dL [facility] Albumin Level 4.0 3.5 - 5.0 g/dL [facility] Alkaline Phosphatase 77 39 - 117 U/L [facility] Blood Venous blood specimen / Unknown 02/28/2025 3:12 PM EDT 02/28/2025 5:39 PM EDT us Flower Gabriel MD LAB BLOOD ORDERABLES Final Result [facility] [address] [place] [phone] * POCT Rapid Influenza A OSOM (02/28/2025 3:10 PM EDT) Rapid Influenza A Ag Negative Negative, Indeterminate QC Media Lot # [id number] Comment:controls passed Lot# Expiration Date Swab Nasopharyngeal structure / Unknown 02/28/2025 3:10 PM EDT Flower Gabriel MD POINT OF CARE TEST ENTER/ED IT ORDERABLES Final Result * POCT Rapid Influenza B OSOM (02/28/2025 3:09 PM EDT) Rapid Influenza B Ag Negative Negative, Indeterminate QC Media Lot # [id number] Lot# Expiration Date Comment:controls passed Swab 02/28/2025 3:09 PM EDT Flower Gabriel MD POINT OF CARE TEST ENTER/ED IT ORDERABLES Final Result * ECG 12 lead (02/28/2025 3:03 PM EDT) Only the most recent of2 resultswithin the time period is included. Narrative Flower Gabriel MD - 02/28/2025 3:03 PM EDT HR 59 bpm. [place] : 37 degrees. Sinus rhythm. No Sign of EDSON/LAE. No sign of hypertrophy. Intra-atrial conduction delay. No ST elevation or ST depression. Borderline EKG. No significant findings on the EKG> Flower Gabriel MD ECG ORDERABLES Final Resul t * Helicobacter pylori, Urea Breath Test (01/19/2025 8:55 AM EDT) H. pylori Breath Test Negative Negative [facility] Comment:Antimicrobials, prot on pump inhibitors and bismuthpreparations are known to suppress H. pylori. Ingestingthese medications within two weeks prior to performing thebreath test may produce negative test results. A positiveresult is still clinically valid. 01/19/2025 8:55 AM EDT 01/19/2025 1:16 PM EDT us Generic External Data Provider LAB BODY FLUIDS A ND STOOLS ORDERABLES Final Result [facility] [address] [place] [phone] * (ABNORMAL) Comprehensive Metabolic Panel, Fasting (01/04/2025 9:21 AM EDT) Sodium 143 135 - 145 mmol/L [facility] Potassium 4.5 3.3 - 5.1 mmol/L [facility] Chloride 107 96 - 108 mmol/L [facility] Carbon Dioxide 30(H) 22 - 29 mmol/L [facility] Anion Gap 11(L) 12 - 20 [facility] Urea Nitrogen (BUN) 7(L) 9 - 16 mg/dL [facility] Creatinine, Serum 0.65 0.5 - 1.4 mg/dL [facility] Estimated Glomerular Filt Rate >60 [facility] Comment:Chronic Kidney Disea se: Estimated GFR < 60 mL/min/1.13t0Xenbqk Kidney Disease: Estimated GFR < 15 mL/min/1.73m2 Glucose Fasting 98 60 - 99 mg/dL [facility] Calcium 9.4 8.4 - 10.2 mg/dL [facility] Bilirubin, Total 0.4 0.0 - 1.0 mg/dL [facility] Aspartate Amino Transferase 28 5 - 31 U/L [facility] Alanine Aminotransferase 26 0 - 31 U/L [facility] Total Protein 7.2 6.5 - 8.0 g/dL [facility] Albumin Level 4.3 3.5 - 5.0 g/dL [facility] Alkaline Phosphatase 77 39 - 117 U/L [facility] 01/04/2025 9:21 AM EDT 01/04/2025 9:21 AM EDT us Generic External Data Provider LAB BLOOD ORDERAB LES Final Result Performing Organization Address [facility] Co de Phone Number [facility] [address] [place] [phone] * Lipase (01/04/2025 9:21 AM EDT) Lipase 34 8 - 78 U/L [facility] 01/04/2025 9:21 AM EDT 01/04/2025 9:21 AM EDT Generic External Data Provider LAB BLOOD ORDERAB LES Final Result Performing Organization Address [facility] Co de Phone Number [facility] [address] [place] [phone] * BI Mammogram Screening Tomosynthesis Bilateral (09/07/2024 1:45 PM EST) Anatomical Region Laterality Modality Breast Bilateral Mammography 09/07/2024 1:45 PM EST Narrative 09/16/2024 5:07 PM EDT [address] [place] [address] Mammography Report Signed Patient: Celeste Pugh MR#: [id number] : 1955 Acct:[id number] Age/Sex: 69 / F ADM Date: 09/07/24 Loc: HO.MAMMO Attending Dr: Carla Hart MD Ordering Physician: Carla Hart MD Results: 1Ne gative Date of Service: 09/07/24 Follow Up: 1 Year From Orig inal Mammogram Procedure(s): MM tomosynthesis screening BI Accession Number(s): [id number] cc: Carla Hart MD EXAMINATION: MM SCREENING [...] 09/16/24 1704 DD/ 1345 TD/TT: 09/07/24 1403 Payroll Services Analyst: Procedure Note Donotuseinterpreter, Image - 09/16/2024 [facility] [address] [place] [address] Mammography Report Signed Patient: Kash Pugh#: [id number] : 5Acct:[id number] Age/Sex: 69 / FADM Date: 09/07/24 Loc: HO.MAMMO Attending Dr: Carla Hart MD Ordering Physician: Carla Hart MDResults: 1Ne gative Date of Service: 09/07/24Follow Up: 1 Year From Orig inal Mammogram Procedure(s): MM tomosynthesis screening BI Accession Number(s): [id number] cc: Carla Hart MD EXAMINATION: MM SCREENING [...] by Noelle Gonzales DO in OV> 09/16/24 1708 DD/ 1345 TD/TT: 09/07/24 1403 Payroll Services Analyst: Carla Hart MD IMG BI PROCEDURES Final Resul t * Colonoscopy (06/04/2022) Anatomical Region Laterality Modality Endoscopy Carla Hart MD ENDOSCOPY PROCEDURE ORDERABLE S Final Result from Last 3 Months or Most Recently Relevant to Health Maintenance Insurance [facility] [employer] (O D-SNP) [place] [id number] [facility] - [facility] Care Teams Hogshead Dumper Relationship Specialty Start Date End Date Carla Hart MD [address] [place] [address] [place] [address] PCP - General Family Medicine 07/06/18
--- OUTSIDE RECORDS SUMMARY | 2025-03-02 10:35 | XMS_ITS | Encounter Summary ---
Author Organization [employer] Address [address] [facility] [address] [place] [address] Care Team Providers Care Breakfast Bar Attendant Name Role Phone Carla Hart MD Primary Care Provider [phone] Encounter Details Date Type Department Care Team [...] documented as of this encounter Care Teams Breakfast Bar Attendant Relationship Specialty Start Date End Date Carla Hart MD [address] [place] [phone] PCP - General Family Medicine 07/06/18 documented as of this encounter
== END 2025-03-02 10:12 | disposition home or self-care (01) ==
LOC: HO.HGI 09:32
PROVIDERS: PCP Pediatrics; Visit Provider Nurse Practitioner Family
DX: K21.9 Gastro-esophageal reflux disease without esophagitis (principal); A04.8 Other specified bacterial intestinal infections; R79.89 Other specified abnormal findings of blood chemistry
CPT/HCPCS: 99213

== ENCOUNTER → 2025-03-02 09:31 | Outpatient (BNVA) | payer OTHER, SELFPAY | PROVIDERS: PCP Pediatrics; Visit Provider Nurse Practitioner Family | DX: K21.9 Gastro-esophageal reflux disease without esophagitis (principal); R10.13 Epigastric pain; A04.8 Other specified bacterial intestinal infections; R79.89 Other specified abnormal findings of blood chemistry | CPT/HCPCS: 99212 ==

== ENCOUNTER 2025-03-08 09:55 | Outpatient (REF) | payer OTHER, SELFPAY ==
[2025-03-08 10:36] LABS: INTERNATIONAL NORM RATIO 0.9 (0.9-1.1); Prothrombin Time 10.7 SEC (10.9-12.4)
[2025-03-08 11:11] LABS: Alanine Aminotransferase 24 U/L (0-31); Albumin Level 4.2 g/dL (3.5-5.0); Alkaline Phosphatase 70 U/L (39-117); Aspartate Amino Transferase 28 U/L (5-31); Iron 70 mcg/dL (30-160); Percent Iron Saturation 24 % (15-50); Total Iron Binding Capacity 288 mcg/dL (228-428); Total Protein 7.3 g/dL (6.5-8.0); Unsaturated Iron Binding 218 ug/dL
--- OUTSIDE RECORDS SUMMARY | 2025-03-08 11:12 | XMS_ITS | Encounter Summary ---
Author Organization [employer] Address [address] [place] [address] Care Team Providers Care Defective Cigarette Slitter Name Role Phone Carla Hart MD Primary Care Provider [phone] Reason for Visit * Reason Onset Date Comments callback requested 06/06/2024 Encounter Details Date Type Department Care Team ([facility] st Contact Info) Description 06/06/2024 Telephone [facility] [address] [place] [address] Carla Hart MD [address] [place] [address] [phone] callback requested Social History Tobacco Use Types [...] due to knee pain constantly. Callback number [phone] documented in this encounter Plan of Treatment Not on file documented as of this encounter Visit Diagnoses Not on filedocumented in this encounter Additional Health Concerns Assessment Noted Time PHQ-9 Depression Total Score: 2 09/11/19 24 10:02 AM EST documented as of this encounter Care Teams Defective Cigarette Slitter Relationship Specialty Start Date End Date Carla Hart MD [address] [place] [phone] PCP - General Family Medicine 07/06/18 documented as of this encounter
--- OUTSIDE RECORDS SUMMARY | 2025-03-08 11:12 | XMS_ITS | Encounter Summary ---
Author Organization [employer] Address [address] [address] Care Team Providers Care Cementer Machine Name Role Phone Carla Hart MD Primary Care Provider [phone] Reason for Visit * Reason Onset Date Comments Med Refill 11/10/2024 Encounter Details Date Type Department Care Team ([facility] st Contact Info) Description 11/10/2024 Telephone [facility] [address] [place] [address] Carla Hart MD [address] [place] [address] [phone] Med Refill Social History Tobacco Use Types [...] 10:23 AM EDT Medication was sent to [facility][id number] on 11/09/24 #180 with 3 refills. * Telephone Encounter - Ambrocio Chi - 11/10/2024 10:21 AM EDT TC from pt requesting medication refill. Medications needing refill : calcium carbonate 1500 (600 Ca) MG tablet To be sent to: [facility]/pharmacy #[id number] - [address] documented in this encounter Plan of Treatment Not on file documented as of this encounter Visit Diagnoses Not on filedocumented in this encounter Additional Health Concerns Assessment Noted Time PHQ-9 Depression Total Score: 2 09/11/19 24 10:02 AM EST documented as of this encounter Care Teams Cementer Machine Relationship Specialty Start Date End Date Carla Hart MD [address] [place] [phone] PCP - General Family Medicine 07/06/18 documented as of this encounter
--- OUTSIDE RECORDS SUMMARY | 2025-03-08 11:12 | XMS_ITS | Clinical Summary ---
Author Organization [employer] Address [address] [facility] 7t [place] [address] Care Team Providers Care Blacksmith Hammer Operator Name Role Phone Carla Hart MD Primary Care Provider [phone] Allergies No known active allergies Medications naproxen [...] SEE ATTACHED FOR DETAILED DIRECTIONS 2 02/29/20 Discontinu ed(Therapy completed) Active Problems Problem Noted [...] Encounters Date Type Department Care Team Description 03/08/2025 Orders Only GENERIC EXTERNAL DATA DEPARTMENT Provider, Generic External Data 03/02/2025 Telephone [facility] [address] [place] [address] Carla Hart MD pre op notes 03/02/2025 Results Follow-Up [facility] [address] [place] [address] Kaylyn Nino RN POCT Rapid Covid-19 BinaxNOW, POCT Rapid Influenza A OSOM, POCT Rapid Influenza B OSOM, Additional followed-up results: 4 02/28/2025 2:15 PM EDT Office Visit [facility] [address] [place] [address] Flower Gabriel MD Pre-op evaluation (Primary Dx); Transaminitis 02/28/2025 Travel 02/22/2025 Telephone [facility] [address] [place] [address] Carla Hart MD pre op 02/15/2025 3:30 PM EDT Office Visit [facility] [address] [place] [address] Carla Hart MD Atypical chest pain (Primary Dx); Benign essential hypertension; Pure hypercholesterolemia ; Family history of early CAD 02/15/2025 Travel 02/15/2025 Telephone [facility] [address] [place] [address] Carla Hart MD Transition Of Care (Tcm) 02/13/2025 Telephone [facility] [address] [place] [address] Carla Hart MD Appointment Request 01/20/2025 Results Follow-Up [facility] [address] [place] [address] Carla Hart MD Helicobacter pylori, Urea Breath [...] Prophylaxis 06/01/2023 11/28/2022 COVID-19 Vaccine ( season) 2025 04/23/2021, 10/15/2020, 09/17/2020 Influenza Vaccine (#1) 2025 , 04/18/2021, 06/11/2017, Additional history exists Mammogram 09/07/2025 09/07/2024, 02/2024, 08/07/2022, Additional history exists Dental X-Ray: Full Mouth 11/25/2025 11/24/2022 Tobacco Screening 02/15/2026 02/15/2025 Alcohol/Substance Use Screening 02/28/2026 02/28/2025 Depression Screening 02/28/2026 02/28/2025, 02/29/20 25 SDOH Screening 02/28/2026 02/28/2025 Lipid Panel 02/28/2030 02/28/2025, 1102/2024, 08/27/2023, Additional history exists RSV Patients and [...] Procedure Name Priority Date/Time Associated Diagnosis Comments HEPATIC FUNCTION PANEL Routine 10:07 AM EDT IRON AND TOTAL IRON BINDING CAPACITY Routine 03/08/2025 10:07 AM EDT Transaminitis PROTHROMBIN TIME-INR Routine 03/08/2025 10:07 AM EDT Transaminitis POCT RAPID COVID ANTIGEN Routine 02/28/2025 3:12 [...] Relevant to Health Maintenance Results * (ABNORMAL) Prothrombin Time-INR (03/08/2025 10:07 AM EDT) Prothrombin Time 10.7(L) 10.9 - 12.4 SEC [facility] INTERNATIONAL NORM RATIO 0.9 0.9 - 1.1 [facility] Comment:INTERNATIONAL NORMAL IZED RATIO (INR) REFERENCE RANGES Reference RangeFor patients not on anticoagulant therapy: 0.9 - 1.1INR ranges for oral anticoagulanttherapy:For prevention and treatment of venous thrombosis and pulmonary embolism: 2.0 - 3.0For acute myocardial infarction with aspirin therapy: 2.0 - 3.0For acute myocardial infarction without aspirin therapy: 3.0 - 4.0For patients with mechanical prosthetic heart valves: 2.5 - 3.5 Blood Venous blood specimen / Unknown 03/08/2025 10:07 AM EDT 03/08/2025 10:07 AM EDT Flower Gabriel MD LAB BLOOD ORDERABLES Final Result Performing Organization Address City/[facility]/ZIP Co de Phone Number [facility] [address] [place] [address] [phone] * POCT Rapid Covid-19 BinaxNOW (02/28/2025 3:12 PM EDT) [facility] Rapid COVID Ag Negative QC Media Lot # [id number] Lot# Expiration Date 513 Comment:controls passed Swab 02/28/2025 3:12 PM EDT Flower Gabriel MD POINT OF CARE TEST ENTER/ED IT ORDERABLES Final Result * TSH with Reflex to Free T4 (02/28/2025 3:12 PM EDT) [facility] TSH reflex Free T4 0.53 0.32 - 4.0 uIU/mL [facility] Blood Venous blood specimen / Unknown 02/28/2025 3:12 PM EDT 02/28/2025 5:39 PM EDT Flower Gabriel MD LAB BLOOD ORDERABLES Final Result Performing Organization Address City/[facility]/ZIP Co de Phone Number [facility] [address] [place] [address] [phone] * (ABNORMAL) CBC auto differential (02/28/2025 3:12 PM EDT) Only the most recent of2 resultswithin the time period is included. [facility] White Blood Count 6.4 4.8 - 10.8 X10*3/uL [facility] Red Blood Count 4.41 4.20 - 5.50 X10*6/uL [facility] Hemoglobin 13.2 12.0 - 16.0 g/dl [facility] Hematocrit 39.6 37.0 - 47.0 % [facility] Mean Corpuscular Volume 89.8 80.0 - 98.0 fL [facility] Mean Corpuscular Hemoglobin 29.9 27.0 - 33.0 pg [facility] Mean Corpuscular HGB Conc 33.3 31.0 - 35.0 g/dl [facility] Red Cell Distribution Width 12.8 11.0 - 16.0 % [facility] Platelet Count 218 160 - 400 X10*3/uL [facility] Mean Platelet Volume 10.6 9.4 - 12.3 fL [facility] Neutrophils Percent Auto 39.8(L) 45 - 73 % [facility] Imm Gran Pct Auto 0.2 0.0 - 0.4 % [facility] Lymphocytes Percent Auto 43.8(H) 20 - 40 % [facility] Monocytes Percent Auto 11.5(H) 2 - 11 % [facility] Eosinophils Percent Auto 3.9 0 - 4 % [facility] Basophils Percent Auto 0.8 0 - 2 % [facility] NRBC Pct Auto 0.0 0.0 - 0.2 /100WBC [facility] Neutrophils Absolute Auto 2.5 2.0 - 8.3 x10*3/uL [facility] Imm Gran Abs Auto 0.01 0.00 - 0.03 X10*3/uL [facility] Lymphocytes Absolute Auto 2.8 1.2 - 4.9 X10*3/uL [facility] Monocytes Absolute Auto 0.7 0.1 - 1.2 X10*3/uL [facility] Eosinophils Absolute Auto 0.3 0.0 - 0.4 X10*3/uL [facility] Basophils Absolute Auto 0.1 0.0 - 0.2 X10*3/uL [facility] NRBC Abs Auto 0.000 0.0 - 0.012 X10*3/uL [facility] Blood Venous blood specimen / Unknown 02/28/2025 3:12 PM EDT 02/28/2025 5:39 PM EDT us Flower Gabriel MD LAB BLOOD ORDERABLES Final Result Performing Organization Address [facility] Co de Phone Number [facility] [address] [place] [address] [phone] * (ABNORMAL) Lipid Panel, Standard (02/28/2025 3:12 PM EDT) Triglycerides 133 <150 mg/dL [facility] Comment:Slight Lipemia.Jorge Luis able Triglyceride: less than 150 mg/dLBorderline High Triglyceride 150-199 mg/dLHigh Triglyceride: 200-499 mg/dLVery High Triglyceride: greater than or equal to 5OO mg/dL Cholesterol 171 <200 mg/dL [facility] Comment:Desirable Cholestero l: less than 200 mg/dLBorderline High Cholesterol: 200-239 mg/dLHigh Cholesterol: greater than 239 mg/dL LDL Cholesterol Calculated 113(H) <100 mg/dL [facility] Comment:Desirable LDL: less than 100 mg/dLNear Optimal/Above Optimal LDL: 110- 129 mg/dLBorderline High LDL: 130-159 mg/dLHigh LDL: 160-189 mg/dLVery High LDL: greater than or equal to 190 mg/dL HDL Cholesterol 32(L) >40 mg/dL [facility] Comment:Desirable HDL: great er than 40 mg/dL Note: This HDL assay may give artificially low results in patients with liver disease. Blood Venous blood specimen / Unknown 02/28/2025 3:12 PM EDT 02/28/2025 5:39 PM EDT us Flower Gabriel MD LAB BLOOD ORDERABLES Final Result Performing Organization Address [facility]/ZIP Co de Phone Number [facility] [address] [place] [address] [phone] * (ABNORMAL) Comprehensive Metabolic Panel (02/28/2025 3:12 PM EDT) Pathologist [facility] Sodium 142 135 - 145 mmol/L [facility] Potassium 3.9 3.3 - 5.1 mmol/L [facility] Comment:Slight Hemolysis.Int erpret result with caution. Chloride 107 96 - 108 mmol/L [facility] Carbon Dioxide 28 22 - 29 mmol/L [facility] Anion Gap 11(L) 12 - 20 [facility] Urea Nitrogen (BUN) 11 9 - 16 mg/dL [facility] Creatinine, Serum 0.66 0.5 - 1.4 mg/dL [facility] Estimated Glomerular Filt Rate >60 [facility] Comment:Chronic Kidney Disea se: Estimated GFR < 60 mL/min/1.10b4Lyivgm Kidney Disease: Estimated GFR < 15 mL/min/1.73m2 Glucose 90 60 - 115 mg/dL [facility] Calcium 9.3 8.4 - 10.2 mg/dL [facility] Bilirubin, Total 0.2 0.0 - 1.0 mg/dL [facility] Aspartate Amino Transferase 38(H) 5 - 31 U/L [facility] Comment:Slight Hemolysis.Int erpret result with caution. Alanine Aminotransferase 22 0 - 31 U/L [facility] Total Protein 7.1 6.5 - 8.0 g/dL [facility] Albumin Level 4.0 3.5 - 5.0 g/dL [facility] Alkaline Phosphatase 77 39 - 117 U/L [facility] Blood Venous blood specimen / Unknown 02/28/2025 3:12 PM EDT 02/28/2025 5:39 PM EDT us Flower Gabriel MD LAB BLOOD ORDERABLES Final Result [facility] [address] [place] [phone] * POCT Rapid Influenza A OSOM [...] 02/28/2025 3:03 PM EDT HR 59 bpm. [place] : 37 degrees. Sinus rhythm. No Sign of EDSON/LAE. No sign of hypertrophy. Intra-atrial conduction delay. No ST elevation or ST depression. Borderline EKG. No significant findings on the EKG> Flower Gabriel MD ECG ORDERABLES Final Resul t * Helicobacter pylori, Urea Breath Test (01/19/2025 8:55 AM EDT) H. pylori Breath Test Negative Negative [facility] Comment:Antimicrobials, prot on pump inhibitors and bismuthpreparations are known to suppress H. pylori. Ingestingthese medications within two weeks prior to performing thebreath test may produce negative test results. A positiveresult is still clinically valid. 01/19/2025 8:55 AM EDT 01/19/2025 1:16 PM EDT us Generic External Data Provider LAB BODY FLUIDS A ND STOOLS ORDERABLES Final Result [facility] [address] [place] [address] [phone] * (ABNORMAL) Comprehensive Metabolic Panel, Fasting (01/04/2025 9:21 AM EDT) Sodium 143 135 - 145 mmol/L [facility] Potassium 4.5 3.3 - 5.1 mmol/L [facility] Chloride 107 96 - 108 mmol/L [facility] Carbon Dioxide 30(H) 22 - 29 mmol/L [facility] Anion Gap 11(L) 12 - 20 [facility] Urea Nitrogen (BUN) 7(L) 9 - 16 mg/dL [facility] Creatinine, Serum 0.65 0.5 - 1.4 mg/dL [facility] Estimated Glomerular Filt Rate >60 [facility] Comment:Chronic Kidney Disea se: Estimated GFR < 60 mL/min/1.20n6Jwfguu Kidney Disease: Estimated GFR < 15 mL/min/1.73m2 Glucose Fasting 98 60 - 99 mg/dL [facility] Calcium 9.4 8.4 - 10.2 mg/dL [facility] Bilirubin, Total 0.4 0.0 - 1.0 mg/dL [facility] Aspartate Amino Transferase 28 5 - 31 U/L [facility] Alanine Aminotransferase 26 0 - 31 U/L [facility] Total Protein 7.2 6.5 - 8.0 g/dL [facility] Albumin Level 4.3 3.5 - 5.0 g/dL [facility] Alkaline Phosphatase 77 39 - 117 U/L [facility] 01/04/2025 9:21 AM EDT 01/04/2025 9:21 AM EDT us Generic External Data Provider LAB BLOOD ORDERAB LES Final Result Performing Organization Address City/[facility]/ZIP Co de Phone Number [facility] [address] [place] [address] [phone] * Lipase (01/04/2025 9:21 AM EDT) Lipase 34 8 - 78 U/L [facility] 01/04/2025 9:21 AM EDT 01/04/2025 9:21 AM EDT us Generic External Data Provider LAB BLOOD ORDERAB LES Final Result [facility] [address] [place] [address] [phone] * BI Mammogram Screening Tomosynthesis Bilateral (09/07/2024 1:45 PM EST) Anatomical Region Laterality Modality Breast Bilateral Mammography 09/07/2024 1:45 PM EST Narrative 09/16/2024 5:07 PM EDT [address] [place] [address] Mammography Report Signed Patient: Celeste Pugh MR#: [id number] : 1955 Acct:[id number] Age/Sex: 69 / F ADM Date: 09/07/24 Loc: HO.MAMMO Attending Dr: Carla Hart MD Ordering Physician: Carla Hart MD Results: 1Ne gative Date of Service: 09/07/24 Follow Up: 1 Year From Orig inal Mammogram Procedure(s): MM tomosynthesis screening BI Accession Number(s): [id number] cc: Carla Hart MD EXAMINATION: MM SCREENING [...] 09/16/24 1704 DD/ 1345 TD/TT: 09/07/24 1403 Tariff Supervisor: Procedure Note Donotuseinterpreter, Image - 09/16/2024 [facility] [address] [place] [address] Mammography Report Signed Patient: Kash Pugh#: [id number] : 5Acct:[id number] Age/Sex: 69 / FADM Date: 09/07/24 Loc: HO.MAMMO Attending Dr: Carla Hart MD Ordering Physician: Carla Hart MDResults: 1Ne gative Date of Service: 09/07/24Follow Up: 1 Year From Orig ina Mammogram Procedure(s): MM tomosynthesis screening BI Accession Number(s): [id number] cc: Carla Hart MD EXAMINATION: MM SCREENING [...] 09/16/24 1704 DD/ 1345 TD/TT: 09/07/24 1403 Tariff Supervisor: us Carla Hart MD IMG BI PROCEDURES Final Resul t * Colonoscopy (06/04/2022) Anatomical Region Laterality Modality Endoscopy us Carla Hart MD ENDOSCOPY PROCEDURE ORDERABLE S Final Result from Last 3 Months or Most Recently Relevant to Health Maintenance Insurance [facility] OPTIONS (O D-SNP) [facility] [place] [address] Care Teams Blacksmith Hammer Operator Relationship Specialty Start Date End Date Carla Hart MD [address] [place] [phone] PCP - General Family Medicine 07/06/18
--- OUTSIDE RECORDS SUMMARY | 2025-03-08 11:12 | XMS_ITS | Encounter Summary ---
Author Organization [employer] Address [address] [address] Care Team Providers Care Durability Technician Name Role Phone Carla Hart MD Primary Care Provider [phone] Reason for Visit * Reason Onset Date Comments Appointment Request 02/13/2025 Encounter Details Date Type Department Care Team ([facility] st Contact Info) Description 02/13/2025 Telephone [facility] [address] [place] [address] Carla Hart MD [address] [place] [address] [phone] Appointment Request Social History Tobacco Use Types [...] PCP for this condition. Contact pt at [phone] Need billing representative documented in this encounter Plan of Treatment Not on file documented as of this encounter Visit Diagnoses Not on filedocumented in this encounter Additional Health Concerns Assessment Noted Time PHQ-9 Depression Total Score: 2 09/11/19 24 10:02 AM EST documented as of this encounter Care Teams Durability Technician Relationship Specialty Start Date End Date Carla Hart MD [address] [place] [address] PCP - General Family Medicine 07/06/18 documented as of this encounter
--- OUTSIDE RECORDS SUMMARY | 2025-03-08 11:12 | XMS_ITS | Encounter Summary ---
Author Organization [employer] Address [address] [facility] 7t [place] [address] Care Team Providers Care Systems Admin Name Role Phone Carla Hart MD Primary Care Provider Encounter Details Date Type Department Care Team (Latest Contact Info) Description 01/20/2025 Results Follow-Up [facility] [address] [place], [place] [phone] Carla Hart MD [address] [place] [address] Helicobacter pylori, Urea Breath Test Social History [...] as of this encounter Care Teams Systems Admin Relationship Specialty Start Date End Date Carla Hart MD [address] [place] [address] PCP - General Family Medicine 07/06/18 documented as of this encounter
--- OUTSIDE RECORDS SUMMARY | 2025-03-08 11:12 | XMS_ITS | Encounter Summary ---
Author Organization [employer] Address [address] [facility] [address] [place] [address] Care Team Providers Care Real Estate Officer Name Role Phone Carla Hart MD Primary Care Provider [phone] Encounter Details Date Type Department Care Team (Latest Contact Info) Description 08/13/[address] [facility] [address] [place] [address] Carla Hart MD [address] [place], [place] [phone] Benign essential hypertension (Primary Dx); Pain of [...] documented as of this encounter Care Teams Real Estate Officer Relationship Specialty Start Date End Date Carla Hart MD [address] [place] [address] PCP - General Family Medicine 07/06/18 documented as of this encounter
--- OUTSIDE RECORDS SUMMARY | 2025-03-08 11:12 | XMS_ITS | Encounter Summary ---
Author Organization [employer] Address [address] [address] Care Team Providers Care Finished Yarn Examiner Name Role Phone Carla Hart MD Primary Care Provider [phone] Reason for Visit * Reason Onset Date Comments Pre op 04/28/2024 Encounter Details Date Type Department Care Team ([facility] st Contact Info) Description 04/28/2024 Telephone [facility] [address] [place], [place] [phone] Carla Hart MD [address] [place] [address] Pre op Social History Tobacco Use Types [...] name: Cataract and Lasik Surgeon's office number: [phone] ext [phone] Surgeon's office fax number: [phone] Contact name (person you spoke with): Noelle Last office note from surgeon requested: No Send Message to iVvian Coronel and Isaak Blanton documented in this encounter Plan of Treatment Not on file documented as of this encounter Visit Diagnoses Not on filedocumented in this encounter Additional Health Concerns Assessment Noted Time PHQ-9 Depression Total Score: 2 09/11/19 10:02 AM EST documented as of this encounter Care Teams Finished Yarn Examiner Relationship Specialty Start Date End Date Carla Hart MD [address] [place] [address] PCP - General Family Medicine 07/06/18 documented as of this encounter
--- OUTSIDE RECORDS SUMMARY | 2025-03-08 11:12 | XMS_ITS | Encounter Summary ---
Author Organization [employer] Address [address] [place] [address] Care Team Providers Care Park Ranger Name Role Phone Carla Hart MD Primary Care Provider [phone] Reason for Visit * Reason Onset Date Comments Nurse Triage 09/06/2024 Encounter Details Date Type Department Care Team ([facility] st Contact Info) Description 09/06/2024 Telephone [facility] [address] [place], [place] [phone] Carla Hart MD [address] [place] [address] Nurse Triage Social History Tobacco Use Types [...] Triage call returned to patient with BLS [id number]. Patient reports concerns of fatigue and lethargy.Patient reports she went to her country [facility] and was identified to have [...] documented as of this encounter Care Teams Park Ranger Relationship Specialty Start Date End Date Carla Hart MD [address] [place] [address] PCP - General Family Medicine 07/06/18 documented as of this encounter
--- OUTSIDE RECORDS SUMMARY | 2025-03-08 11:12 | XMS_ITS | Encounter Summary ---
Author Organization [employer] Address [address] [place] [address] Care Team Providers Care Tool Turret Lathe Set Up Operator Name Role Phone Carla Hart MD Primary Care Provider [phone] Encounter Details Date Type Department Care Team ([facility] st Contact Info) Description 08/13/2022 Telephone [facility] [address] [place] [address] Carla Hart MD [address] [place], [place] [phone] Social History Tobacco Use Types Packs/Day Years [...] documented as of this encounter Care Teams Tool Turret Lathe Set Up Operator Relationship Specialty Start Date End Date Carla Hart MD [address] [place] [address] PCP - General Family Medicine 07/06/18 documented as of this encounter
--- OUTSIDE RECORDS SUMMARY | 2025-03-08 11:12 | XMS_ITS | Encounter Summary ---
Author Organization [employer] Address [address] [place] [address] Care Team Providers Care Test Preparer Name Role Phone Carla Hart MD Primary Care Provider [phone] Reason for Visit * Reason Onset Date Comments pre op notes 03/02/2025 Encounter Details Date Type Department Care Team ([facility] st Contact Info) Description 03/02/2025 Telephone [facility] [address] [place] [address] Carla Hart MD [address] [place] [address] pre op notes Social History Tobacco Use Types Packs/Day Years [...] encounter Miscellaneous Notes * Telephone Encounter - Lolly Britton RN - 03/07/2025 10:56 AM EDT Pre op notes faxed. * Telephone Encounter - Nneka Pisano - 03/02/2025 2:30 PM EDT Tc from Monica at [facility] requesting for pre op notes to be faxed over Contact Monica at [phone] documented in this encounter Plan of Treatment Not on file documented as of this encounter Visit Diagnoses Not on filedocumented in this encounter Additional Health Concerns Assessment Noted Time PHQ-9 Depression Total Score: 1 02/29/20 25 2:36 PM EDT documented as of this encounter Care Teams Test Preparer Relationship Specialty Start Date End Date Carla Hart MD [address] [place] [address] PCP - General Family Medicine 07/06/18 documented as of this encounter
[2025-03-08 11:20] LABS: Ferritin 47 ng/mL (10-250)
[2025-03-08 11:22] LABS: HBS Num1 1.57 mIU/mL (0-7.99); HBc Num1 0.05 S/CO (0.00-0.79); HBsAGNum1 0.46 S/CO (0.00-0.99); Hepatitis A Antibody IgM 0.17 Index (0-0.79); Hepatitis B Surface Antigen Negative (Negative); ~HepC Num1 0.09 S/CO (0.00-0.79); ~Hepatitis A Antibody IgM Nonreactive (Nonreactive); ~Hepatitis B Surface Antibody NONREACTIVE (Nonreactive); ~Hepatitis C Antibody Nonreactive (Nonreactive)
== END 2025-03-08 09:56 | disposition home or self-care (01) ==
LOC: HO.LAB 09:55
PROVIDERS: Internal Medicine; PCP Pediatrics; Visit Provider Nurse Practitioner Family
DX: R74.01 Elevation of levels of liver transaminase levels (principal); R10.13 Epigastric pain; Z11.59 Encounter for screening for other viral diseases; Z01.84 Encounter for antibody response examination
CPT/HCPCS: 36415; 80076; 82728; 82784; 83540; 85610; 86704; 86706; 86709; 86803; 87340

== ENCOUNTER 2025-04-27 07:51 | Outpatient (REF) | payer OTHER, SELFPAY ==
--- NOTE | ~2025-04-27 | US_ITS ---
EXAMINATION: US ABDOMEN COMPLETE WITH LIVER ELASTOGRAPHY HISTORY: Transaminitis TECHNIQUE: Real-time grayscale ultrasound imaging of the abdomen was performed and images were reviewed. COMPARISON: Comparison is made with the prior examination dated 10/31/2020. FINDINGS: Liver: The right lobe of the liver measures 14.0 cm in size. The left lobe of the liver measures 7.9 cm in size. The liver demonstrates increased echotexture, consistent with steatosis. No focal mass or intrahepatic biliary ductal dilatation is identified. There is normal hepatopedal flow in the portal vein. Ultrasound elastography of the liver was performed with 10 separate measurements of the liver parenchyma with the patient in the supine position. Measurements were obtained approximately 2 cm below Nicole's capsule and perpendicular to the capsule. The median shear wave velocity is 1.63 m/s. The interquartile range/median (IQR/median) is 0.13. Gallbladder and biliary tree: The gallbladder is unremarkable, without evidence of calculi, wall thickening, or pericholecystic fluid. There is no sonographic Mccarthy sign. The common bile duct is normal in caliber measuring 5 mm. Kidneys: The right kidney measures 11.1 cm in length. The left kidney measures 11.5 cm in length. The kidneys are unremarkable, without evidence of masses, hydronephrosis, or calculi. Pancreas: The pancreatic head, neck, and body are unremarkable. The pancreatic tail is obscured by bowel gas. Spleen: The spleen is normal in size and contour, measuring 10.5 cm in length. Abdominal aorta and inferior vena cava: The visualized portions of the abdominal aorta and inferior vena cava are normal in caliber. There is no free fluid in the abdomen. US/US abdomen comp w elastography IMPRESSION: Hepatic steatosis. The median shear wave velocity in the liver is 1.63 m/s, corresponding to a median liver stiffness of 8.09 kPa. The IQR/median value is 0.13. This is indicative of a quality data set. Findings are indicative of a low elastography value which rules out advanced chronic liver disease in asymptomatic patients. REFERENCE: Society of Radiologists in Ultrasound Liver Stiffness Thresholds (2020): LIVER STIFFNESS THRESHOLDS: *Shear wave velocity less than 1.3 m/s (Liver Stiffness equal or less than 5 kPa): High probability of being normal. *Shear wave velocity less than 1.7 m/s (Liver Stiffness less than 9 kPa): In the absence of other known clinical signs, rules out compensated advanced chronic liver disease. *Shear wave velocity between 1.7-2.1 m/s (Liver Stiffness 9-13 kPa): Suggestive of compensated advanced chronic liver disease but need further test for confirmation. *Shear wave velocity between 2.1-2.4 m/s (Liver Stiffness 13-17 kPa): Rules in compensated advanced chronic liver disease. *Shear wave velocity greater than 2.4 m/s (Liver Stiffness over 17 kPa): Suggestive of clinically significant portal hypertension. QUALITY OF DATA SET: *IQR/Median value equal or less than 0.15 implies a quality data set. *IQR/Median value over 0.15 implies a poor quality data set. SIGNIFICANT CHANGE FROM PRIOR EXAM: Significant change if liver stiffness measurement is 10% or greater from prior exam. OTHER CONSIDERATIONS: The stage of liver fibrosis may be overestimated in the setting of acute hepatitis, liver inflammation, elevated liver function tests, hepatic vascular congestion, obstructive cholestasis, non-fasting state, and infiltrative diseases such as amyloidosis and lymphoma. In some patients with NAFLD, the liver stiffness thresholds for compensated advanced chronic liver disease may be lower. In causes other than viral hepatitis and NAFLD, liver stiffness thresholds are not well established. Electronically signed by: Bunny Alarcon MD 04/27/2025 08:33 AM EDT
--- OUTSIDE RECORDS SUMMARY | 2025-04-27 07:53 | XMS_ITS | Encounter Summary ---
Author Organization [employer] Address [address] [place] [address] Care Team Providers Care Insulator Cutter And Former Name Role Phone Carla Hart MD Primary Care Provider [phone] Encounter Details Date Type Department Care Team ([facility] st Contact Info) Description 08/13/2022 Telephone [facility] [address] [place] [address] Carla Hart MD [address] [place], [place] [phone] Social History Tobacco Use Types Packs/Day Years [...] documented as of this encounter Care Teams Insulator Cutter And Former Relationship Specialty Start Date End Date Carla Hart MD [address] [place] [address] PCP - General Family Medicine 07/06/18 documented as of this encounter
--- OUTSIDE RECORDS SUMMARY | 2025-04-27 07:53 | XMS_ITS | Clinical Summary ---
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 180 tablet 3 5 Active atorvastatin (Lipitor) 40 MG tablet Take 1 tab orally qhs 90 tablet 1 5 Active Active Problems Problem Noted Date Diagnosed Date [...] DEPARTMENT Provider, Generic External Data 03/02/2025 Telephone [facility] [address] [place] [address] Carla Hart MD pre op notes 03/02/2025 Results Follow-Up [facility] [address] [place] [address] Kaylyn Nino RN POCT Rapid Covid-19 BinaxNOW, POCT Rapid Influenza A OSOM, POCT Rapid Influenza B OSOM, Additional followed-up results: 4 02/28/2025 2:15 PM EDT Office Visit [facility] [address] [place] [address] Flower Gabriel MD Pre-op evaluation (Primary Dx); Transaminitis 02/28/2025 Travel 02/22/2025 Telephone [facility] [address] [place] [address] Carla Hart MD pre op 02/15/2025 3:30 PM EDT Office Visit [facility] [address] [place] [address] Carla Hart MD Atypical chest pain (Primary Dx); Benign essential hypertension; Pure hypercholesterolemi a; Family history of early CAD 02/15/2025 Travel 02/15/2025 Telephone [facility] [address] [place] [address] Carla Hart MD Transition Of Care (Tcm) 02/13/2025 Telephone [facility] [address] [place], [place] [phone] Carla Hart MD Appointment Request from Last 3 Months Immunizations Immunization Administration [...] 1955 FIT 1955 FOBT 1955 Sigmoidoscopy 1955 Zoster Vaccines (3 of 3) 11/19/2021 09/24/2021, 03/2016 Pneumococcal Vaccine: 50+ Years (2 of 2 - PPSV23) 09/24/2022 09/24/2021 Dental Oral Exam 05/28/2023 11/24/2022 Dental Prophylaxis 06/01/2023 11/28/2022 COVID-19 Vaccine ( - season) 2025 04/23/2021, 10/15/2020, 09/17/2020 Influenza Vaccine [...] Colonoscopy 06/04/2032 06/04/2022 Colorectal Cancer Screening 06/04/2032 Hepatitis C Screening Completed 03/08/2025 HIB Vaccines Aged Out No longer eligi [...] CAPACITY Routine 03/08/2025 10:07 AM EDT Transaminitis FERRITIN Routine 03/08/2025 10:07 AM EDT Transaminitis PROTHROMBIN TIME-INR Routine 03/08/2025 10:07 AM EDT Transaminitis IMMUNOGLOBULINS, QUANTITATIVE, IGA, IGG, IGM Routine 03/08/2025 10:07 AM EDT Transaminitis HEPATITIS PANEL, GENERAL Routine 03/08/2025 10:07 AM EDT Transaminitis POCT [...] 02/15/2025 4:57 PM EDT Atypical chest pain BI MAMMOGRAM SCREENING TOMOSYNTHESIS BILATERAL Routine 09/07/2024 [...] Recently Relevant to Health Maintenance Results * Hepatitis Panel, General (03/08/2025 10:07 AM EDT) Hepatitis A IgM Nonreactive Nonreactive [facility] Comment:IgM antibodies to BUTT V not detected; does not exclude earlyacute or recovered HAV infection. ~Hepatitis B Surface Antibody NONREACTIVE Nonreactive [facility] Comment:Nonreactive: < 8.00 mIU/mL Hepatitis B Core Antibody Nonreactive Nonreactive [facility] Hepatitis C Antibody Nonreactive Nonreactive [facility] Comment:Antibodies to HCV no t detected; does not exclude early acuteHCV infection. Hepatitis B Surface Ag Negative Negative [facility] Blood Venous blood specimen / Unknown 03/08/2025 10:07 AM EDT 03/08/2025 10:07 AM EDT us Flower Gabriel MD LAB BLOOD ORDERABLES Final Result [facility] [address] [place] [address] [phone] * Iron And Total Iron Binding Capacity (03/08/2025 10:07 AM EDT) Iron 70 30 - 160 mcg/dL [facility] Total Iron Binding Capacity 288 228 - 428 mcg/dL [facility] Percent Iron Saturation 24 15 - 50 % [facility] Unsaturated Iron Binding 218 ug/dL [facility] Blood Venous blood specimen / Unknown 03/08/2025 10:07 AM EDT 03/08/2025 10:07 AM EDT us Flower Gabriel MD LAB BLOOD ORDERABLES Final Result Performing Organization Address [facility]/ZIP Co de Phone Number [facility] [address] [place] [phone] * (ABNORMAL) Prothrombin Time-INR (03/08/2025 10:07 AM EDT) Pathologist [facility] Prothrombin Time 10.7(L) 10.9 - 12.4 SEC [facility] INTERNATIONAL NORM RATIO 0.9 0.9 - 1.1 [facility] Comment:INTERNATIONAL NORMAL IZED RATIO (INR) REFERENCE [...] 10:07 AM EDT 03/08/2025 10:07 AM EDT us Flower Gabriel MD LAB BLOOD ORDERABLES Final Result Performing Organization Address [facility]/ZIP Co de Phone Number [facility] [address] [place] [phone] * Immunoglobulins, Quantitative, IgA, IgG, IgM (03/08/2025 10:07 AM EDT) Pathologist [facility] IMMUNOGLOBULIN G 1430 600 - 1540 mg/dL [facility] IMMUNOGLOBULIN A 320 70 - 320 mg/dL [facility] Immunoglobulin M 60 50 - 300 mg/dL [facility] Comment:THIS TEST WAS PERFOR MED AT:[employer] [place] [id number] REYES MD Blood Venous blood specimen / Unknown 03/08/2025 10:07 AM EDT 03/08/2025 10:07 AM EDT us Flower Gabriel MD LAB BLOOD ORDERABLES Final Result Performing Organization Address [facility]/ZIP Co de Phone Number [facility] [address] [place] [phone] * Ferritin (03/08/2025 10:07 AM EDT) Pathologist [facility] Ferritin 47 10 - 250 ng/mL [facility] Blood Venous blood specimen / Unknown 03/08/2025 10:07 AM EDT 03/08/2025 10:07 AM EDT Flower Gabriel MD LAB BLOOD ORDERABLES Final Result Performing Organization Address [facility] Co de Phone Number [facility] [address] [place] [phone] * Hepatic Function Panel (03/08/2025 10:07 AM EDT) Pathologist [facility] Bilirubin, Total 0.3 0.0 - 1.0 mg/dL [facility] Bilirubin, Direct 0.1 0.0 - 0.5 mg/dL [facility] Aspartate Amino Transferase 28 5 - 31 U/L [facility] Alanine Aminotransferase 24 0 - 31 U/L [facility] Total Protein 7.3 6.5 - 8.0 g/dL [facility] Albumin Level 4.2 3.5 - 5.0 g/dL [facility] Alkaline Phosphatase 70 39 - 117 U/L [facility] 03/08/2025 10:0 7 AM EDT 03/08/2025 10:07 AM EDT us Generic External Data Provider LAB BLOOD ORDERAB LES Final Result Performing Organization Address [facility] Co de Phone Number [facility] [address] [place] [phone] [phone] * POCT Rapid Covid-19 BinaxNOW (02/28/2025 3:12 PM EDT) [facility] Rapid COVID Ag Negative QC Media Lot # [id number] Lot# Expiration Date Comment:controls passed Swab 02/28/2025 3:12 PM EDT Flower Gabriel MD POINT OF CARE TEST ENTER/ED IT ORDERABLES Final Result * TSH with Reflex to Free T4 (02/28/2025 3:12 PM EDT) Pathologist [facility] TSH reflex Free T4 0.53 0.32 - 4.0 uIU/mL [facility] Blood Venous blood specimen / Unknown 02/28/2025 3:12 PM EDT 02/28/2025 5:39 PM EDT Flower Gabriel MD LAB BLOOD ORDERABLES Final Result Performing Organization Address [facility] Co de Phone Number [facility] [address] [place] [phone] * (ABNORMAL) CBC auto differential (02/28/2025 3:12 PM EDT) Pathologist [facility] White Blood Count 6.4 4.8 - 10.8 X10*3/uL [facility] Red Blood Count 4.41 4.20 - 5.50 X10*6/uL [facility] Hemoglobin 13.2 12.0 - 16.0 g/dl [facility] Hematocrit 39.6 37.0 - 47.0 % [facility] Mean Corpuscular Volume 89.8 80.0 - 98.0 fL [facility] Mean Corpuscular Hemoglobin 29.9 27.0 - 33.0 pg [facility] Mean Corpuscular HGB Conc 33.3 31.0 - 35.0 g/dl [facility] Red Cell Distribution Width 12.8 11.0 - 16.0 % [facility] Platelet Count 218 160 - 400 X10*3/uL [facility] Mean Platelet Volume 10.6 9.4 - 12.3 fL [facility] Neutrophils Percent Auto 39.8(L) 45 - 73 % [facility] Imm Gran Pct Auto 0.2 0.0 - 0.4 % [facility] Lymphocytes Percent Auto 43.8(H) 20 - 40 % [facility] Monocytes Percent Auto 11.5(H) 2 - 11 % [facility] Eosinophils Percent Auto 3.9 0 - 4 % [facility] Basophils Percent Auto 0.8 0 - 2 % [facility] NRBC Pct Auto 0.0 0.0 - 0.2 /100WBC [facility] Neutrophils Absolute Auto 2.5 2.0 - 8.3 x10*3/uL [facility] Imm Gran Abs Auto 0.01 0.00 - 0.03 X10*3/uL [facility] Lymphocytes Absolute Auto 2.8 1.2 - 4.9 X10*3/uL [facility] Monocytes Absolute Auto 0.7 0.1 - 1.2 X10*3/uL [facility] Eosinophils Absolute Auto 0.3 0.0 - 0.4 X10*3/uL [facility] Basophils Absolute Auto 0.1 0.0 - 0.2 X10*3/uL [facility] NRBC Abs Auto 0.000 0.0 - 0.012 X10*3/uL [facility] Blood Venous blood specimen / Unknown 02/28/2025 3:12 PM EDT 02/28/2025 5:39 PM EDT us Flower Gabriel MD LAB BLOOD ORDERABLES Final Result [facility] [address] [place] [address] [phone] * (ABNORMAL) Lipid Panel, Standard (02/28/2025 3:12 PM EDT) Triglycerides 133 <150 mg/dL [facility] Comment:Slight Lipemia.Jorge Luis able Triglyceride: less than 150 mg/dLBorderline High Triglyceride 150-199 mg/dLHigh Triglyceride: 200-499 mg/dLVery High Triglyceride: greater than or equal to 5OO mg/dL Cholesterol 171 <200 mg/dL [facility] Comment:Desirable Cholestero l: less than 200 mg/dLBorderline High Cholesterol: 200-239 mg/dLHigh Cholesterol: greater than 239 mg/dL LDL Cholesterol Calculated 113(H) <100 mg/dL [facility] Comment:Desirable LDL: less than 100 mg/dLNear Optimal/Above Optimal LDL: 110- 129 mg/dLBorderline High LDL: 130-159 mg/dLHigh LDL: 160-189 mg/dLVery High LDL: greater than or equal to 190 mg/dL HDL Cholesterol 32(L) >40 mg/dL [facility] Comment:Desirable HDL: great er than 40 mg/dL Note: This HDL assay may give artificially low results in patients with liver disease. Blood Venous blood specimen / Unknown 02/28/2025 3:12 PM EDT 02/28/2025 5:39 PM EDT us Flower Gabriel MD LAB BLOOD ORDERABLES Final Result [facility] [address] [place] [address] [phone] * (ABNORMAL) Comprehensive Metabolic Panel (02/28/2025 3:12 PM EDT) Sodium 142 135 - 145 mmol/L [facility] Potassium 3.9 3.3 - 5.1 mmol/L [facility] Comment:Slight Hemolysis.Int erpret result with caution. Chloride 107 96 - 108 mmol/L [facility] Carbon Dioxide 28 22 - 29 mmol/L [facility] Anion Gap 11(L) 12 - 20 [facility] Urea Nitrogen (BUN) 11 9 - 16 mg/dL [facility] Creatinine, Serum 0.66 0.5 - 1.4 mg/dL [facility] Estimated Glomerular Filt Rate >60 [facility] Comment:Chronic Kidney Disea se: Estimated GFR < 60 mL/min/1.30b3Jdakts Kidney Disease: Estimated GFR < 15 mL/min/1.73m2 Glucose 90 60 - 115 mg/dL [facility] Calcium 9.3 8.4 - 10.2 mg/dL [facility] Bilirubin, Total 0.2 0.0 - 1.0 mg/dL [facility] Aspartate Amino Transferase 38(H) 5 - 31 U/L [facility] Comment:Slight Hemolysis.Int erpret result with caution. Alanine Aminotransferase 22 0 - 31 U/L [facility] Total Protein 7.1 6.5 - 8.0 g/dL [facility] Albumin Level 4.0 3.5 - 5.0 g/dL [facility] Alkaline Phosphatase 77 39 - 117 U/L [facility] Blood Venous blood specimen / Unknown 02/28/2025 3:12 PM EDT 02/28/2025 5:39 PM EDT us Flower Gabriel MD LAB BLOOD ORDERABLES Final Result [facility] [address] [place] [address] [phone] * POCT Rapid Influenza A OSOM (02/28/2025 3:10 PM EDT) Rapid Influenza A Ag Negative Negative, Indeterminate QC Media Lot # [id number] Comment:controls passed Lot# Expiration Date [id number] Swab Nasopharyngeal structure / Unknown 02/28/2025 3:10 PM EDT us Flower Gabriel MD POINT OF CARE TEST ENTER/ED IT ORDERABLES Final Result * POCT Rapid Influenza B OSOM (02/28/2025 3:09 PM EDT) Rapid Influenza B Ag Negative Negative, Indeterminate QC Media Lot # [id number] Lot# Expiration Date [id number] Comment:controls passed Swab 02/28/2025 3:09 PM EDT us Flower Gabriel MD POINT OF CARE TEST ENTER/ED IT ORDERABLES Final Result * ECG 12 lead (02/28/2025 3:03 PM EDT) Only the most recent of2 resultswithin the time period is included. Narrative Flower Gabriel MD - 02/28/2025 3:03 PM EDT HR 59 bpm. [place] : 37 degrees. Sinus rhythm. No Sign of EDSON/LAE. No sign of hypertrophy. Intra-atrial conduction delay. No ST elevation or ST depression. Borderline EKG. No significant findings on the EKG> us Flower Gabriel MD ECG ORDERABLES Final Resul t * BI Mammogram Screening Tomosynthesis Bilateral (09/07/2024 1:45 PM EST) Anatomical Region Laterality Modality Breast Bilateral Mammography 09/07/2024 1:45 PM EST Narrative 09/16/2024 5:07 PM EDT [facility] [address] [place], [place] [address] Mammography Report Signed Patient: Celeste Pugh MR#: [id number] : 1955 Acct:[id number] Age/Sex: 69 / F ADM Date: 09/07/24 Loc: HO.MAMMO Attending Dr: Carla Hart MD Ordering Physician: Carla Hart MD Results: 1Ne gative Date of Service: 09/07/24 Follow Up: 1 Year From Orig inal Mammogram Procedure(s): MM tomosynthesis screening BI Accession Number(s): [id number] cc: Carla Hart MD EXAMINATION: MM SCREENING [...] 09/16/24 1704 DD/ 1345 TD/TT: 09/07/24 1403 Locomotive Repairer Diesel: Procedure Note Donotuseinterpreter, Image - 09/16/2024 [facility] [address] [place] [address] Mammography Report Signed Patient: Kash Pugh#: [id number] : 5Acct:[id number] Age/Sex: 69 / FADM Date: 09/07/24 Loc: MAMMO Attending Dr: Carla Hart MD Ordering Physician: Carla Hart MDResults: 1Ne gative Date of Service: 09/07/24Follow Up: 1 Year From Orig inal Mammogram Procedure(s): MM tomosynthesis screening BI Accession Number(s): [id number] cc: Carla Hart MD EXAMINATION: MM SCREENING [...] 09/16/24 1704 DD/ 1345 TD/TT: 09/07/24 1403 Locomotive Repairer Diesel: Carla Hart MD IMG BI PROCEDURES Final Resul t * Colonoscopy (06/04/2022) Anatomical Region Laterality Modality Endoscopy us Carla Hart MD ENDOSCOPY PROCEDURE ORDERABLE S Final Result from Last 3 Months or Most Recently Relevant to Health Maintenance Insurance [facility] [employer] OPTIONS (HMO D-SNP) DENTAL - [facility] Care Teams Insurance Adjuster Relationship Specialty Start Date End Date Carla Hart MD [address] [place] [address] [place] [address] PCP - General Family Medicine 07/06/18
--- OUTSIDE RECORDS SUMMARY | 2025-04-27 07:53 | XMS_ITS | Encounter Summary ---
Author Organization [employer] Address [address] [address] Care Team Providers Care Linking Machine Operator Name Role Phone Carla Hart MD Primary Care Provider [phone] Reason for Visit * Reason Onset Date Comments Pre op 04/28/2024 Encounter Details Date Type Department Care Team ([facility] st Contact Info) Description 04/28/2024 Telephone [facility] [address] [place], [place] [phone] Carla aHrt MD [address] [place] [address] Pre op Social History Tobacco Use Types [...] name: Cataract and Lasik Surgeon's office number: [phone] Surgeon's office fax number: [phone] Contact name (person you spoke with): Noelle [...] documented as of this encounter Care Teams Linking Machine Operator Relationship Specialty Start Date End Date Carla Hart MD [address] [place] [address] PCP - General Family Medicine 07/06/18 documented as of this encounter
--- OUTSIDE RECORDS SUMMARY | 2025-04-27 07:53 | XMS_ITS | Encounter Summary ---
Author Organization [employer] Address 75 [facility] [address] [place] [address] Care Team Providers Care Hardness Tester Name Role Phone Carla Hart MD Primary Care Provider [phone] Encounter Details Date Type Department Care Team (Latest Contact Info) Description 08/13/2022 Orders Only [facility] [address] [place] [address] Carla Hart MD [address] [place], [place] [phone] Benign essential hypertension (Primary Dx); Pain of [...] documented as of this encounter Care Teams Hardness Tester Relationship Specialty Start Date End Date Carla Hart MD [address] [place] [address] PCP - General Family Medicine 07/06/18 documented as of this encounter
--- OUTSIDE RECORDS SUMMARY | 2025-04-27 07:53 | XMS_ITS | Encounter Summary ---
Author Organization [employer] Address [address] [place] [address] Care Team Providers Care Injection Molding Machine Offbearer Name Role Phone Carla Hart MD Primary Care Provider [phone] Reason for Visit * Reason Onset Date Comments callback requested 06/06/2024 Encounter Details Date Type Department Care Team ([facility] st Contact Info) Description 06/06/2024 Telephone [facility] [address] [place] [address] Carla Hart MD [address] [place] [phone] callback requested Social History Tobacco Use Types [...] due to knee pain constantly. Callback number [phone] documented in this encounter Plan of Treatment Not on file documented as of this encounter Visit Diagnoses Not on filedocumented in this encounter Additional Health Concerns Assessment Noted Time PHQ-9 Depression Total Score: 2 09/11/19 24 10:02 AM EST documented as of this encounter Care Teams Injection Molding Machine Offbearer Relationship Specialty Start Date End Date Carla Hart MD [address] [place] [phone] PCP - General Family Medicine 07/06/18 documented as of this encounter
--- OUTSIDE RECORDS SUMMARY | 2025-04-27 07:53 | XMS_ITS | Encounter Summary ---
Author Organization [employer] Address [address] [place] [address] Care Team Providers Care Gas Torch Brazier Name Role Phone Carla Hart MD Primary Care Provider [phone] Reason for Visit * Reason Onset Date Comments Nurse Triage 09/06/2024 Encounter Details Date Type Department Care Team ([facility] st Contact Info) Description 09/06/2024 Telephone [facility] [address] [place], [place] [phone] Carla Hart MD [address] [place] [address] Nurse Triage Social History Tobacco Use Types [...] Triage call returned to patient with BLS [phone]. Patient reports concerns of fatigue and lethargy.Patient reports she went to her [facility] and was identified to have [...] as of this encounter Care Teams Gas Torch Brazier Relationship Specialty Start Date End Date Carla Hart MD [address] [place] [phone] PCP - General Family Medicine 07/06/18 documented as of this encounter
--- OUTSIDE RECORDS SUMMARY | 2025-04-27 07:53 | XMS_ITS | Encounter Summary ---
Author Organization [employer] Address [address] [place] [address] Care Team Providers Care Hotel Services Sales Representative Name Role Phone Carla Hart MD Primary Care Provider [phone] Reason for Visit * Reason Onset Date Comments Med Refill 11/10/2024 Encounter Details Date Type Department Care Team ([facility] st Contact Info) Description 11/10/2024 Telephone [facility] [address] [place] [address] Carla Hart MD [address] [place] [phone] Med Refill Social History Tobacco Use Types [...] 10:23 AM EDT Medication was sent to [facility] #[id number] on 11/09/24 #180 with 3 refills. * Telephone Encounter - Ambrocio Chi - 11/10/2024 10:21 AM EDT TC from pt requesting medication refill. Medications needing refill : calcium carbonate 1500 (600 Ca) MG tablet To be sent to: [facility]/pharmacy #[id number] - [address] documented in this encounter Plan of Treatment Not on file documented as of this encounter Visit Diagnoses Not on filedocumented in this encounter Additional Health Concerns Assessment Noted Time PHQ-9 Depression Total Score: 2 09/11/19 24 10:02 AM EST documented as of this encounter Care Teams Hotel Services Sales Representative Relationship Specialty Start Date End Date Carla Hart MD [address] [place] [phone] PCP - General Family Medicine 07/06/18 documented as of this encounter
== END 2025-04-27 07:52 | disposition home or self-care (01) ==
LOC: HO.US 07:51
PROVIDERS: PCP Pediatrics; Visit Provider Internal Medicine
DX: R74.01 Elevation of levels of liver transaminase levels (principal)
CPT/HCPCS: 76700; 76981

== ENCOUNTER → 2025-04-27 07:52 | Outpatient (BNV) | payer OTHER, SELFPAY | PROVIDERS: PCP Pediatrics; Visit Provider Radiology Diagnostic Radiology | DX: K76.0 Fatty (change of) liver, not elsewhere classified (principal) | CPT/HCPCS: 76700 ==

== ENCOUNTER 2025-05-30 09:18 | Outpatient (AMB) | payer OTHER, SELFPAY ==
--- NOTE | 2025-05-30 09:21 | MHC.OFFVIS ---
Vital Signs 05/30/25 09:22 Height 5 ft Weight 168 lb BMI 32.8 BP 98/57 L Blood Pressure Location Lt brachial Position Sitting Pulse 62 Intake Visit Reasons: 3 month follow Gerd Intake Note: Patient follow up for Chronic GERD and lab results. Patient cc: abdominal pain at night time, and GERD. Melter Supervisor Required: Yes Melter Supervisor Name: [facility] [place] [facility] Accompanied by: Self / Same As Patient Allergies No Known Allergies Allergy (Verified 03/02/25 09:38) HPI HPI 3 month follow Gerd: Details: Patient is a Icelandic-speaking 69-year-old female with PMH of hyperlipidemia and GERD. She is accompanied by dishcloth folder. F/u for GERD sx and elevated liver enzymes. Since last visit in Feb, pt?s weight has remained stable (160s); no significant wt loss. Reports ongoing GERD sx?burning epigastric pain, especially when stomach empty and at night; partially relieved by eating. Sx recurrence described as worse with fasting, improved (temporarily) postprandially. Previously on pantoprazole without significant relief. [place] (07[place], [place] showed gastritis and esophagitis. Pt adherent to meds and reports dietary efforts but seeks further guidance. No hx HTN or DM, cholesterol remains elevated, fasting glucose normal (01/2025). No constipation, reports BM up to 2x/daily with complete evacuation. No new sx except for chronic extremity/joint concerns (non-GI). No hospitalizations, acute flares, or urgent care visits. [facility] Medical History (Updated 05/30/25 @ 10:10 by Magdalene North CNP) NAFLD (nonalcoholic fatty liver disease) Elevated LFTs H. pylori infection Chronic GERD Elevated cholesterol History of COVID-19 GERD (gastroesophageal reflux disease) Sacroiliac joint dysfunction Lumbar spondylosis Lumbar radiculopathy Surgical History (Updated 05/30/25 @ 09:26 by Alina Lewis) Hx of eye surgery History of esophagogastroduodenoscopy (EGD) H/O colonoscopy History of surgery on arm Social History Household Members: Spouse Alcohol intake: current Alcohol intake frequency: does not drink Patient Tobacco Use Status: Never used Tobacco Review of Systems Const Reports as per HPI ENT Reports as per HPI Card Reports as per HPI Resp Reports as per HPI GI Reports as per HPI Reports as per HPI Physical Exam Vital Signs: Last Vital Signs Pulse 62 05/30/25 09:22 BP 98/57 L 05/30/25 09:22 BMI result Body Mass Index 32.8 Const General: healthy appearing, no acute distress and well developed Nutritional Appearance: average body habitus Orientation/consciousness: patient oriented x3 HEENT Head: Yes normal to inspection, Yes normocephalic and Yes atraumatic Face and sinus: Yes normal facial exam Eyes General: appearance normal, both eyes and all related structures Neck Neck: Yes normal visual inspection Resp Effort & Inspection: normal respiratory effort, able to speak in complete sentences, no tracheal deviation and symmetric chest movement Cardio Jugular venous distension: no JVD GI Inspection: Yes normal to inspection, No distended and Yes obesity Palpation (GI): Soft to palpation, not firm, nontender and No hepatosplenomegaly present Auscultation: normal bowel sounds Neuro General: patient oriented x3 Gait exam (Neuro): Normal gait present Psych Appearance: grossly normal Mental Status: mental status grossly normal Speech and movement: Normal speech and movement present Affect: normal affect Attitude: cooperative Thought process: Normal thought process present Thought content: Normal thought content present Insight: Good insight present (Psych) Judgement: Good judgement present (Psych) Results Reviewed Results Reviewed: Date of Service: 04/27/25 Procedure(s): US abdomen comp w elastography Accession Number(s): [id number] cc: Flower Gabriel MD; Carla Hart MD~ Reason for Exam: Transaminitis EXAMINATION: US ABDOMEN COMPLETE WITH LIVER ELASTOGRAPHY HISTORY: Transaminitis TECHNIQUE: Real-time grayscale ultrasound imaging of the abdomen was performed and images were reviewed. COMPARISON: Comparison is made with the prior examination dated 10/31/2020. FINDINGS: Liver: The right lobe of the liver measures 14.0 cm in size. The left lobe of the liver measures 7.9 cm in size. The liver demonstrates increased echotexture, consistent with steatosis. No focal mass or intrahepatic biliary ductal dilatation is identified. There is normal hepatopedal flow in the portal vein. Ultrasound elastography of the liver was performed with 10 separate measurements of the liver parenchyma with the patient in the supine position. Measurements were obtained approximately 2 cm below Nicole's capsule and perpendicular to the capsule. The median shear wave velocity is 1.63 m/s. The interquartile range/median (IQR/median) is 0.13. Gallbladder and biliary tree: The gallbladder is unremarkable, without evidence of calculi, wall thickening, or pericholecystic fluid. There is no sonographic Mccarthy sign. The common bile duct is normal in caliber measuring 5 mm. Kidneys: The right kidney measures 11.1 cm in length. The left kidney measures 11.5 cm in length. The kidneys are unremarkable, without evidence of masses, hydronephrosis, or calculi. Pancreas: The pancreatic head, neck, and body are unremarkable. The pancreatic tail is obscured by bowel gas. Spleen: The spleen is normal in size and contour, measuring 10.5 cm in length. Abdominal aorta and inferior vena cava: The visualized portions of the abdominal aorta and inferior vena cava are normal in caliber. There is no free fluid in the abdomen. US/US abdomen comp w elastography IMPRESSION: Hepatic steatosis. The median shear wave velocity in the liver is 1.63 m/s, corresponding to a median liver stiffness of 8.09 kPa. The IQR/median value is 0.13. This is indicative of a quality data set. Findings are indicative of a low elastography value which rules out advanced chronic liver disease in asymptomatic patients. Assessment & Plan Assessment & Plan (1) Chronic GERD: Comment: Findings of upper endoscopy in July 2024 in the [place] ( with interpreters financial sales assistant)- Esophagitis grade B erosive, erosive gastropathy, atrophic gastropathy, chronic gastropathy, gastric biopsies taken. Pathology not available. Code(s): K21.9 - Gastro-esophageal reflux disease without esophagitis Category: Medical Plan: Sx persistent despite pantoprazole; worsens when stomach empty, nocturnally. EGD ([place]road, 07/[place]24) showed gastritis, esophagitis. No alarm sx (bleeding, dysphagia, wt loss). Additional testing: Order upper GI series to r/o hiatal hernia, anatomical/functional esophageal issues (dione given pain increases when fasting and suboptimal EGD documentation). Medications: - Discontinue pantoprazole. - Start esomeprazole 20 mg BID (am/before dinner preferable, on empty stomach, 30 min pre-meal). - PRN famotidine for breakthrough sx. - Review for tolerability, efficacy, and any adverse effects. Lifestyle Recommendations: - Avoid overeating, avoid lying/reclining soon after meals, stay upright, maintain hydration. - Tight clothing to be avoided as increases intra-abd pressure. - Continue high-fiber foods (john, flaxseed) as tolerable. Referrals / Coordination of Care: Radiology to contact pt for scheduling upper GI series. Follow-Up Plan: Return f/u after imaging completed or sooner PRN. Assess medication response and upper GI series results. (2) NAFLD (nonalcoholic fatty liver disease): Code(s): K76.0 - Fatty (change of) liver, not elsewhere classified Category: Medical Plan: Stable?US shows hepatic steatosis, LFTs normalized. No evidence of advanced fibrosis/cirrhosis. Persistent obesity/dyslipidemia remain. Wt stable, not declining. Additional testing: None indicated at this time; monitor LFTs Medications: Continue atorvastatin as before. Lifestyle Recommendations: - Reinforce wt loss (target 5?10%), healthy diet (whole foods, minimize processed foods), regular exercise. - Provided Yi-language handout (pt?s family to assist with translation if needed). - Monitor for changes in wt, dietary adherence, and physical activity. Referrals / Coordination of Care: None at this time. Follow-Up Plan: reassess progress on diet/exercise; reinforce education. Plan Follow-up after UGI or sooner as needed Time: I spent a total of 33 minutes on the date of encounter which includes: Preparing to see the patient (reviewed previous documentation, test results and medical history) Performing a medically appropriate exam and/or evaluation Ordering medications, tests, and procedures Documenting clinical information in the health record Orders: Orders [place] upper GI small bowel Today K21.9 - Gastro-esophageal reflux disease without esophagitis Medications: New esomeprazole magnesium Take one tablet in the AM and one tablet at bedtime. 20 mg PO BID 180 caps 0RF famotidine 40 mg PO BEDTIME PRN 90 tabs 0RF acid reflux Coding Level of Care Code Established Pt Est Pt Level 4 (50679) Patient Type Established Diagnoses Chronic GERD K21.9 NAFLD (nonalcoholic fatty liver disease) K76.0
[2025-05-30 09:22] VITALS: BP 98/57; PULSE 62; BMI 32.8
== END 2025-05-30 10:06 | disposition home or self-care (01) ==
LOC: HO.HGI 09:18
PROVIDERS: PCP Pediatrics; Visit Provider Nurse Practitioner Family
DX: K21.9 Gastro-esophageal reflux disease without esophagitis (principal); K76.0 Fatty (change of) liver, not elsewhere classified
CPT/HCPCS: 99214

== ENCOUNTER → 2025-05-30 09:18 | Outpatient (BNVA) | payer OTHER, SELFPAY | PROVIDERS: PCP Pediatrics; Visit Provider Nurse Practitioner Family | DX: K21.9 Gastro-esophageal reflux disease without esophagitis (principal); K76.0 Fatty (change of) liver, not elsewhere classified; Z79.899 Other long term (current) drug therapy | CPT/HCPCS: 99212 ==

== ENCOUNTER 2025-06-12 09:04 | Outpatient (AMB) | payer OTHER, SELFPAY ==
--- NOTE | 2025-06-12 09:13 | A.OFFVIS_ITS ---
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/ janna/ chest pain/ htn Tank Pumper Panelboard Required: Yes Tank Pumper Panelboard Language: [facility] Name: voyce/latvian Accompanied by: Self / Same As Patient Allergies No Known Allergies Allergy (Verified 06/12/25 09:17) Medication List - Last Reconciled 06/12/25 by Logan Amaro MD atorvastatin 40 mg PO BEDTIME bisoprolol fumarate 5 mg PO DAILY calcium carbonate 600 mg PO BID cholecalciferol (vitamin D3) 50 mcg PO Q12H esomeprazole magnesium 20 mg PO BID famotidine 40 mg PO BEDTIME PRN gabapentin 300 mg PO BID PRN 30 days multivitamin with folic acid 400 mcg (Daily-Mitch (with folic acid)) tabs PO HPI Comments Details: Pleasant 69 year lady who is here for assessment of chest pain. She said that while she was in [place] at 1 stage she had some leakage in the heart . She is unable to elaborate further on that. She is saying that she was short of breath and had edema and she was told the blood pressure was not well controlled and was started on antihypertensive medications with improvement in symptoms. More recently she has been getting atypical left-sided chest pain. Again she is a very poor historian and unable to elaborate further on that. She is saying that she does not do any exercise. Inside the house when she is doing chores she does not get any symptoms but overall physical activity does not appear to be good. No previous testing available currently. [facility] Medical History NAFLD (nonalcoholic fatty liver disease) Elevated LFTs H. pylori infection Chronic GERD Elevated cholesterol History of COVID-19 GERD (gastroesophageal reflux disease) Sacroiliac joint dysfunction Lumbar spondylosis Lumbar radiculopathy Surgical History Hx of eye surgery History of esophagogastroduodenoscopy (EGD) H/O colonoscopy History of surgery on arm Social History Household Members: Spouse Alcohol intake: current Alcohol intake frequency: does not drink Patient Tobacco Use Status: Never used Tobacco Review of Systems Const Denies chills, Denies fatigue, Denies fever(s), Denies frequent falls, Denies weakness, Denies weight gain and Denies weight loss ENT Denies dizziness Card Denies chest pain, Denies leg edema, Denies lightheadedness, Denies palpitations, Denies dyspnea, Denies dyspnea on exertion and Denies orthopnea Resp Denies cough, Denies dyspnea and Denies dyspnea on exertion GI Denies bloating and Denies change in bowel habits Musc Denies muscle weakness, Denies numbness and Denies tingling Neuro Denies dizziness, Denies frequent falls, Denies numbness, Denies tingling and Denies weakness Endo Denies fatigue and Denies palpitations Physical Exam Vital Signs: Last Vital Signs Pulse 68 06/12/25 09:16 BP 100/64 06/12/25 09:16 BMI result Body Mass Index 33.4 GENERAL APPEARANCE: in no acute distress, pleasant. NECK: no carotid bruit, no jugular venous distention. SKIN: no suspicious lesions, warm and dry. HEART: no murmurs, regular rate and rhythm. LUNGS: clear to auscultation bilaterally. ABDOMEN: soft, nontender. EXTREMITIES: no edema. PERIPHERAL PULSES: equal. NEUROLOGIC: No gross deficits, AAO X 3 Office Procedures EKG Details: Sinus rhythm 68 beats per minute, normal axis, inferior infarct, occasional premature ventricular complexes, QTC 448 milliseconds. [id number], Complete Assessment & Plan Assessment & Plan (1) Chest pain: Code(s): R07.9 - Chest pain, unspecified Category: Medical Plan [age] year female presenting for chest pain assessment. History is quite vague. She has inferior Q-waves on the EKG. She is denying any previous history of myocardial infarction. She is giving some history which appears to be a heart failure episode when she was in [place]. Clinically she appears to be euvolemic at this point. We will get an echocardiogram. We will arrange a stress Mibi for her to assess for any perfusion defect. Blood pressure is little low and I have advised her to increase her hydration. Follow up after the testing is done. Thank you for allowing me to participate in the care of your patient. Please feel free to contact me if you have any questions. Orders: Orders CA stress test Today R07.9 - Chest pain, unspecified NM cardiolite stress test Today R07.9 - Chest pain, unspecified CA echo transthorac w con Today R07.9 - Chest pain, unspecified Coding Level of Care Code New Pt Level 4 (98812) Diagnoses Chest pain R07.9 CPT Codes EKG - CPT: 05113-[id number], Complete ([id number])
[2025-06-12 09:16] VITALS: BP 100/64; PULSE 68; BMI 33.4
== END 2025-06-12 09:40 | disposition home or self-care (01) ==
LOC: HO.HCS 09:05
PROVIDERS: PCP Pediatrics; Visit Provider Internal Medicine Cardiovascular Disease
DX: R07.9 Chest pain, unspecified (principal)
CPT/HCPCS: 93010; 99204

== ENCOUNTER → 2025-06-12 09:04 | Outpatient (BNVA) | payer OTHER, SELFPAY | PROVIDERS: PCP Pediatrics; Visit Provider Internal Medicine Cardiovascular Disease | DX: R07.89 Other chest pain (principal) | CPT/HCPCS: 93005; 99202 ==